=== PATIENT | male | born 1935 | race Caucasian/White ===

== ENCOUNTER 2016-12-23 15:58 | Inpatient (IN) | payer MEDICARE, BC ==
[2016-12-23 17:24] LABS: Hematocrit 37 % (42-52); Hemoglobin 12.6 g/dl (14.0-18.0); Mean Corpuscular HGB Conc 34 g/dl (31-36); Mean Corpuscular Hemoglobin 30 pg (27-31); Mean Corpuscular Volume 89 fL (80-94); Mean Platelet Volume 7 um3 (7.4-10.4); Red Cell Distribution Width 13 % (10.5-15); White Blood Count 8.9 10^3/ul (3.5-10.8)
[2016-12-23] MEDS ORDERED: Iodixanol* (CONTRAST) 320 MG/ML 100 ML SDV IV ONE (17:54)
[2016-12-23 18:05] LABS: Troponin I 0.01 ng/mL (<0.04)
[2016-12-23 18:18] LABS: Albumin 3.3 g/dL (3.2-5.2); BUN/Creatinine Ratio 24.5 (8-20); Calcium 9.3 mg/dL (8.6-10.3); EGFR African American 90.6 (>60); EGFR Non-African American 70.5 (>60); Globulin 3.4 g/dL (2-4); Potassium 5.1 mmol/L (3.5-5.0); Total Bilirubin 0.3 mg/dL (0.2-1.0); Total Protein 6.7 g/dL (6.4-8.9)
--- NOTE | 2016-12-23 19:11 | RAD ---
INDICATION: Amaurosis fugax. COMPARISON: Comparison is made with a prior MRI of the brain from December 18, 2014. TECHNIQUE: Contiguous axial sections of the brain were obtained from the skull base to the vertex without contrast. FINDINGS: The ventricles, cisterns and sulci are enlarged consistent with diffuse atrophy. There are multiple focal areas of decreased density in the subcortical and periventricular white matter suggestive of moderate chronic small vessel ischemic changes. No other focal abnormality or mass effect is seen. There is no evidence for hemorrhage. There is mucosal thickening within the ethmoid and left frontal sinuses. The mastoid air cells appear clear. IMPRESSION: 1. NO EVIDENCE FOR GROSS ACUTE INFARCT, MASS EFFECT OR HEMORRHAGE. 2. ATROPHY AND FINDINGS SUGGESTIVE OF CHRONIC SMALL VESSEL ISCHEMIC CHANGES.
--- NOTE | 2016-12-23 19:40 | RAD ---
INDICATION: Amaurosis fugax. COMPARISON: There are no prior studies available for comparison. TECHNIQUE: A CT angiogram of the head and neck was performed following intravenous injection of 80 ml of Visipaque 320 nonionic contrast. Contiguous axial sections were obtained from the thoracic inlet through the skull vertex. Images were reconstructed in the coronal and sagittal planes and in a 3-D volume rendered format. The distal cervical internal carotid artery diameter is used as the denominator for stenosis measurement. FINDINGS: RIGHT CAROTID: The common carotid artery is widely patent. There is mild to moderate calcific plaque present within the carotid bulb. No hemodynamically significant stenosis is present. The internal carotid artery appears widely patent. LEFT CAROTID: The left common carotid artery is widely patent. There is mild calcific plaque present within the carotid bulb. No hemodynamically significant stenosis is present. The internal carotid artery appears widely patent. VERTEBRALS: The vertebral arteries appear patent without evidence for high-grade stenosis or occlusion. CTA BRAIN: The internal carotid, anterior and middle cerebral arteries appear patent without evidence for high-grade stenosis or occlusion. There is mild to moderate calcific plaque present within the cavernous portion of both internal carotid arteries. The vertebral, basilar and posterior cerebral arteries appear patent without evidence for high-grade stenosis or occlusion. No gross focal perfusion abnormalities are seen. No aneurysm or vascular malformation is seen. NECK: No significant enlarged lymph nodes are seen within the neck. The thyroid, parotid and submandibular glands appear to be within normal limits. The lung apices appear clear. There is mild mucosal thickening within the ethmoid and left frontal sinus. IMPRESSION: 1. NO EVIDENCE FOR CAROTID STENOSIS. 2. NO EVIDENCE FOR LARGE VESSEL INTRACRANIAL THROMBUS. CPT II Codes: 3100F
[2016-12-23 19:41] LABS: Urine Bilirubin Negative (Negative); Urine Glucose Negative (Negative); Urine Nitrite Negative (Negative)
[2016-12-23 21:33] LABS: C Reactive Protein 81.26 mg/L (< 5.00)
[2016-12-23] MEDS ORDERED: Dextrose 50% Syringe 50 ML* 25 GM/50 ML SYRINGE IV PUSH PRN (21:33)
--- NOTE | 2016-12-23 22:07 | ED ---
Fernando Gonzalez Benjamin, scribed for Erich Rodriguez MD on 12/23/16 at 1706 . Neurological HPI - HPI Summary HPI Summary: 81yo male sent by his Medical Supervisor from his office to r/o CVA after reporting left visual symptoms while being examined. Pt reports having diploma on his left eye 3 days ago, and yesterday pt had sudden loss of middle section visual loss across horizontally. His visual loss continued for 1 hour then resolved back to normal. Pt had similar episodes again this morning and at his Ophthalmologists office. Also reports extreme fatigue and lethargy for 3 weeks and intermittent right arm sudden weakness last week. - History of Current Complaint Chief Complaint: EDNeurologicalDeficit Stated Complaint: DOUBLE VISION AND UNABLE TO SEE IN LT EYE Time Seen by Provider: 12/23/16 16:27 Hx Obtained From: Patient Timing: Constant Pain Intensity: 5 Pain Scale Used: 0-10 Numeric Character: Lethargy, Visual Changes - left - Allergy/Home Medications Allergies/Adverse Reactions: Allergies Allergy/AdvReac Type Severity Reaction Status Date / Time Sulfa Antibiotics Allergy Unknown Unknown Verified 02/13/15 06:54 Reaction Details Chlortetracycline Allergy FULL BODY Verified 02/13/15 06:54 [From Aureomycin] RASH Home Medications: Home Medications Aspirin EC Low Dose* [Ecotrin EC Low Dose 81 MG*] 81 mg PO DAILY 12/23/16 [ History Confirmed 12/23/16] Citalopram TAB* [CeleXA TAB*] 30 mg PO DAILY 12/23/16 [History Confirmed ] Metformin ER (NF) 1,000 mg PO BID 12/23/16 [History Confirmed 12/23/16] Simvastatin (NF) [Zocor (NF)] 40 mg PO BEDTIME 12/23/16 [History Confirmed 12/23] SitaGLIPtin (NF) [Januvia (NF)] 100 mg PO DAILY 12/23/16 [History Confirmed ] PMH/Surg Hx/FS Hx/Imm Hx Endocrine/Hematology History: Reports: Hx Diabetes Cardiovascular History: Reports: Hx Hypertension - ON DAILY MEDS Denies: Hx Pacemaker/ICD Comment Only: Other Cardiovascular Problems/Disorders - 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 08/2014 Colon resection [facility] Hx Anesthesia Reactions: No Infectious Disease History: No Infectious Disease History: Denies: Traveled Outside the [place] in Last 30 Days - Social History Alcohol Use: None Alcohol Amount: 1 GLASS Substance Use Type: Reports: None Smoking Status (MU): Former Smoker Type: Cigarettes Amount Used/How Often: 1PPD 20 YRS Have You Smoked in the Last Year: No Review of Systems Constitutional: Negative Positive: Diplopia - left, Other - left visual impairment ENT: Negative Cardiovascular: Negative Respiratory: Negative Gastrointestinal: Negative Genitourinary: Negative Musculoskeletal: Negative Skin: Negative Positive: Weakness - RUE Psychological: Normal All Other Systems Reviewed And Are Negative: Yes Physical Exam Triage Information Reviewed: Yes Vital Signs On Initial Exam: Initial Vitals Temp Pulse Resp BP Pulse Ox 98 F 66 16 136/79 96 12/23/16 16:08 12/23/16 16:08 12/23/16 16:08 12/23/16 16:08 12/23/16 16:08 Vital Signs Reviewed: Yes Appearance: Positive: Well-Appearing, No Pain Distress, Well-Nourished Skin: Positive: Warm, Skin Color Reflects Adequate Perfusion, Dry Head/Face: Positive: Normal Head/Face Inspection, Other - Tender and firm right temporal artery Eyes: Positive: Conjunctiva Clear ENT: Positive: Normal ENT inspection, Hearing grossly normal Neck: Positive: Supple, Nontender Respiratory/Lung Sounds: Positive: Clear to Auscultation, Breath Sounds Present Cardiovascular: Positive: RRR, Other - Decreased left carotid pulse. No bruit. Abdomen Description: Positive: Nontender, Soft Bowel Sounds: Positive: Present Musculoskeletal: Positive: Strength/ROM Intact Neurological: Positive: Sensory/Motor Intact, Alert, Oriented to Person Place, Time Psychiatric: Positive: Affect/Mood Appropriate - Martin Coma Scale Coma Scale Total: 15 Diagnostics - Vital Signs Vital Signs Temp Pulse Resp BP Pulse Ox 12/23/16 16:38 97.7 F 72 16 154/89 99 12/23/16 16:31 73 98 12/23/16 16:08 98 F 66 16 136/79 96 - Laboratory Lab Results: Lab Results 12/23/16 12/23/16 12/23/16 Range/Units 17:08 17:08 17:08 WBC 8.9 (3.5-10.8) 10^3/ul RBC 4.20 (4.0-5.4) 10^6/ul Hgb 12.6 L (14.0-18.0) g/dl Hct 37 L (42-52) % MCV 89 (80-94) fL MCH 30 (27-31) pg MCHC 34 (31-36) g/dl RDW 13 (10.5-15) % Plt Count 387 (150-450) 10^3/ul MPV 7 L (7.4-10.4) um3 Neut % (Auto) 59.3 (38-83) % Lymph % (Auto) 20.7 L (25-47) % [place]owndes % (Auto) 12.2 H (1-9) % Eos % (Auto) 7.0 H (0-6) % Baso % (Auto) 0.8 (0-2) % Absolute Neuts (auto) 5.3 (1.5-7.7) 10^3/ul Absolute Lymphs (auto) 1.8 (1.0-4.8) 10^3/ul Absolute Monos (auto) 1.1 H (0-0.8) 10^3/ul Absolute Eos (auto) 0.6 (0-0.6) 10^3/ul Absolute Basos (auto) 0.1 (0-0.2) 10^3/ul Absolute Nucleated RBC 0 10^3/ul Nucleated RBC % 0 ESR Pending INR (Anticoag Therapy) 0.96 (0.89-1.11) Sodium 136 (133-145) mmol/L Potassium 5.1 H (3.5-5.0) mmol/L Chloride 102 (101-111) mmol/L Carbon Dioxide 29 (22-32) mmol/L Anion Gap 5 (2-11) mmol/L BUN 25 H (6-24) mg/dL Creatinine 1.02 (0.67-1.17) mg/dL Est GFR ( Amer) 90.6 (>60) Est GFR (Non-Af Amer) 70.5 (>60) BUN/Creatinine Ratio 24.5 H (8-20) Glucose 124 H (70-100) mg/dL Lactic Acid (0.5-2.0) mmol/L Calcium 9.3 (8.6-10.3) mg/dL Total Bilirubin 0.30 (0.2-1.0) mg/dL AST 12 L (13-39) U/L ALT 12 (7-52) U/L Alkaline Phosphatase 112 H (34-104) U/L Troponin I 0.01 (<0.04) ng/mL C-Reactive Protein 81.26 H (< 5.00) mg/L Total Protein 6.7 (6.4-8.9) g/dL Albumin 3.3 (3.2-5.2) g/dL Globulin 3.4 (2-4) g/dL Albumin/Globulin Ratio 1.0 (1-3) TSH (0.34-5.60) mcIU/mL Urine Color Urine Appearance Urine pH (5-9) Ur Specific Colbert (1.010-1.030) Urine Protein (Negative) Urine Ketones (Negative) Urine Blood (Negative) Urine Nitrate (Negative) Urine Bilirubin (Negative) Urine Urobilinogen (Negative) Ur Leukocyte Esterase (Negative) Urine Glucose (Negative) 12/23/16 12/23/16 12/23/16 Range/Units 17:08 17:08 19:20 WBC (3.5-10.8) 10^3/ul RBC (4.0-5.4) 10^6/ul Hgb (14.0-18.0) g/dl Hct (42-52) % MCV (80-94) fL MCH (27-31) pg MCHC (31-36) g/dl RDW (10.5-15) % Plt Count (150-450) 10^3/ul MPV (7.4-10.4) um3 Neut % (Auto) (38-83) % Lymph % (Auto) (25-47) % Lowndes % (Auto) (1-9) % Eos % (Auto) (0-6) % Baso % (Auto) (0-2) % Absolute Neuts (auto) (1.5-7.7) 10^3/ul Absolute Lymphs (auto) (1.0-4.8) 10^3/ul Absolute Monos (auto) (0-0.8) 10^3/ul Absolute Eos (auto) (0-0.6) 10^3/ul Absolute Basos (auto) (0-0.2) 10^3/ul Absolute Nucleated RBC 10^3/ul Nucleated RBC % ESR INR (Anticoag Therapy) (0.89-1.11) Sodium (133-145) mmol/L Potassium (3.5-5.0) mmol/L Chloride (101-111) mmol/L Carbon Dioxide (22-32) mmol/L Anion Gap (2-11) mmol/L BUN (6-24) mg/dL Creatinine (0.67-1.17) mg/dL Est GFR ( Amer) (>60) Est GFR (Non-Af Amer) (>60) BUN/Creatinine Ratio (8-20) Glucose (70-100) mg/dL Lactic Acid 1.1 (0.5-2.0) mmol/L Calcium (8.6-10.3) mg/dL Total Bilirubin (0.2-1.0) mg/dL AST (13-39) U/L ALT (7-52) U/L Alkaline Phosphatase (34-104) U/L Troponin I (<0.04) ng/mL C-Reactive Protein (< 5.00) mg/L Total Protein (6.4-8.9) g/dL Albumin (3.2-5.2) g/dL Globulin (2-4) g/dL Albumin/Globulin Ratio (1-3) TSH 0.40 (0.34-5.60) mcIU/mL Urine Color Yellow Urine Appearance Clear Urine pH 6.0 (5-9) Ur Specific Colbert 1.018 (1.010-1.030) Urine Protein Negative (Negative) Urine Ketones Negative (Negative) Urine Blood Negative (Negative) Urine Nitrate Negative (Negative) Urine Bilirubin Negative (Negative) Urine Urobilinogen Negative (Negative) Ur Leukocyte Esterase Negative (Negative) Urine Glucose Negative (Negative) Result Diagrams: 12/23/16 17:08 12/23/16 17:08 Lab Statement: Any lab studies that have been ordered have been reviewed, and results considered in the medical decision making process. - CT Brain CT CT Interpretation: No Acute Changes - IMPRESSION: 1. NO EVIDENCE FOR GROSS ACUTE INFARCT, MASS EFFECT OR HEMORRHAGE. 2. ATROPHY AND FINDINGS SUGGESTIVE OF CHRONIC SMALL VESSEL ISCHEMIC CHANGES. CT Interpretation Completed By: Radiologist CTA Head CT Interpretation: No Acute Changes - IMPRESSION: 1. NO EVIDENCE FOR CAROTID STENOSIS. 2. NO EVIDENCE FOR LARGE VESSEL INTRACRANIAL THROMBUS. CPT II Codes: 3100F CT Interpretation Completed By: Radiologist - EKG 1718. Cardiac Rate: NL - 70bpm EKG Rhythm: Sinus Rhythm ST Segment: Non-Specific - non specific anterior ST changes Ectopy: PVCs Course/Dx - Course Course Of Treatment: Reviewed pts medication and allergy lists. Blood pressure noted. Discussed with Dr. Sampson (Neurology) at 16:45. Discussed with Dr. Welsh (Hospitalist) at 20:09. . Assessment/Plan: Mr. Romero presented from DR. Barber's office with a visula C/O that Dr. Barber did not feel was his eye but rather was concerned for Amaurosis Fugax. He is getting W/U for that at this time and also I have a concern for a possible temporal arteritis and ESR is pending. The hospitalists are consulted for admission for further W/U. - Diagnoses Provider Diagnoses: Visual loss Discharge - Discharge Plan Condition: Stable Disposition: ADMITTED TO [facility] The documentation as recorded by the Fernando middleton Benjamin accurately reflects the service I personally performed and the decisions made by me, Erich Rodriguez MD.
[2016-12-23 22:28] LABS: Erythrocyte Sed Rate 66 mm/Hr (0-40)
[2016-12-23] MEDS ORDERED: Temazepam CAP* 15 MG PO PRN (22:54)
[2016-12-23] MEDS: Atorvastatin* 20 MG TAB PO SCH (23:37)
[2016-12-23] MEDS: Heparin VIAL(*) 5000 UNITS/ML VIAL (FIVE THOUSAND) SUBCUT SCH (23:38)
--- NOTE | 2016-12-24 02:18 | HP ---
CC: Chinyere Alvarenga MD * HISTORY AND PHYSICAL: DATE OF ADMISSION: 12/23/16 CHIEF COMPLAINT: "Can't see through my left eye." HISTORY OF PRESENT ILLNESS: The patient is a 81-year-old gentleman, who said yesterday he had a sudden loss of vision in his left eye. It lasted approximately 45 minutes. He said he also had some double vision associated with this. It happened about 6 p.m. He was sitting in a chair when it happened. It felt like there was a piece of wood covering his eye through the middle. Then today, he has had another recurrence of it, but it was only for a few seconds. He saw his eye doctor today for evaluation who sent him over to the hospital for further evaluation. He denied ever having any slurred speech or facial droop. He may have had some trouble with word finding. His has noticed he has been increasingly fatigued and weak over the last week or so. He may have had some trouble with word finding. His has noticed he has been increasingly fatigued and weak over the last week or so. She also notes that when he was getting chemotherapy recently for his colon cancer, he also had an episode of double vision. She also notes significant depression lately. PAST MEDICAL HISTORY: The patient has a past medical history significant for colon cancer stage III, status post chemo and surgery; coronary artery disease; type 2 diabetes; esophagitis; arthritis. PAST SURGICAL HISTORY: Significant for appendectomy and surgery for bilateral undescended testes and colon resection. CURRENT MEDICATIONS: As follows: 1. Aspirin 81 mg daily. 2. Januvia 100 mg daily. 3. Metformin 1000 mg twice daily. 4. Simvastatin 40 mg at bedtime. 5. Atenolol 50 mg in the morning. 6. Celexa 30 mg daily. ALLERGIES: He has an allergy/adverse reaction to AUREOMYCIN. FAMILY HISTORY: Reviewed, noncontributory. SOCIAL HISTORY: , his is his healthcare proxy. 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 Ex-tobacco, quit at age 52, had a 25- pack-year history, occasional alcohol. REVIEW OF SYSTEMS: A 14-point review of systems was completed with the patient. All pertinent positives and negatives are in the history of present illness, otherwise negative. PHYSICAL EXAMINATION GENERAL: A pleasant gentleman lying in bed, in no acute distress. VITAL SIGNS: Temperature 97.5 degrees, heart rate 83 beats per minute, respiratory rate 18 breaths per minute, pulse ox 97%, blood pressure is 147/60. HEENT: Normocephalic and atraumatic. Pupils are equal, round, and reactive to light. Moist mucous membranes. NECK: Supple. No JVD, bruits, or palpable thyroid or lymphadenopathy. CHEST: Clear to auscultation and percussion bilaterally. CARDIOVASCULAR: S1, S2 appreciated. Regular rate and rhythm. ABDOMINAL EXAM: Positive bowel sounds in all 4 quadrants. Soft, nontender, nondistended. No hepatosplenomegaly. EXTREMITIES: No cyanosis, clubbing, or edema, +2 pulses bilaterally. NEURO: Alert and oriented x3. Moves all extremities. SKIN: No rashes or abnormalities. DIAGNOSTIC STUDIES/LAB DATA: White count 8.9, hemoglobin 12.6, hematocrit 37, platelets 387,000. Sodium 136, potassium 5.1, chloride 102, CO2 29, BUN 25, creatinine 1.02, glucose 124. CRP is 81.26, INR is 0.96. Urinalysis is unremarkable. EKG shows normal sinus rhythm at 70 beats per minute, normal axis, PVC's, flattening of the T, nonspecific ST-T wave changes. His brain CT was interpreted by Radiology as no evidence of gross acute infarct , mass effect or hemorrhage, atrophy vessels, chronic small vessel ischemic changes. Head CTA shows no evidence for carotid stenosis, no evidence of large vessel intracranial thrombus. ASSESSMENT AND PLAN: 1. Transient ischemic attack, amaurosis fugax. Unclear if this is actually what occurred. We will monitor the patient on telemetry, get an MRI in the a.m. He apparently had it while doing chemo as well. I will continue with aspirin for now. We may add Plavix. Neurology consult in the a.m. Neurological checks q.4 hours p.r.n. 2. Diabetes mellitus. Hold oral hypoglycemics, fingersticks with sliding scale insulin. 3. Hypertension, borderline controlled. Continue current regimen and adjust medications accordingly. 4. Depression. very worried about this. We will continue citalopram, consider increasing the medication or adjustment of the same. 5. DVT prophylaxis. Heparin subcu. 6. FEN. Consistent carb diet. 7. The patient is a full code. TIME SPENT: Over 75 minutes was spent on this H and P, more than 40 minutes were spent in direct [id number] contact with the patient in evaluation, physical exam, counseling and coordination of care. [id number]/[facility] #: [id number] ALEX
[2016-12-24 05:21] LABS: HDL Cholesterol 30.6 mg/dL
[2016-12-24] MEDS: Heparin VIAL(*) 5000 UNITS/ML VIAL (FIVE THOUSAND) SUBCUT SCH (05:55)
[2016-12-24] MEDS ORDERED: Citalopram TAB* 10 MG PO SCH (09:00)
[2016-12-24] MEDS ORDERED: Aspirin EC Low Dose* 81 MG TAB.EC PO SCH (09:00)
[2016-12-24] MEDS: Insulin LISPRO* 1 UNITS UNIT SUBCUT SCH ×4 (09:27→21:14)
[2016-12-24] MEDS: Clopidogrel TAB* 75 MG PO SCH (09:28)
[2016-12-24] MEDS: Atenolol TAB* 50 MG PO SCH (09:29)
[2016-12-24] MEDS ORDERED: Sodium Polystyrene ORAL.SOL* 15 GM/60 ML BTL PO ONE (11:29)
--- NOTE | 2016-12-24 11:53 | RAD ---
HISTORY: Left eye vision loss, colon cancer COMPARISONS: Head CT dated December 23, 2016, MRI dated December 18, 2014 TECHNIQUE: The following sequences were obtained of the head: Sagittal T1-weighted images, axial T2-weighted images, axial FLAIR images, axial susceptibility weighted images, axial T1-weighted images. Additionally, axial diffusion-weighted images were obtained with calculated apparent diffusion coefficients. FINDINGS: HEMORRHAGE/INFARCT: There is no hemorrhage or acute infarct. MASSES/SHIFT: There is no mass or shift. EXTRA-AXIAL SPACES/MENINGES: There are no extra-axial fluid collections. SULCI AND VENTRICLES: The sulci and ventricles are normal in size and position for the patient's stated age. CEREBRUM: There is multifocal elevated T2/FLAIR signal with small chronic lacunar infarcts. BRAINSTEM: There are no focal parenchymal abnormalities. CEREBELLUM: There are no focal parenchymal abnormalities. The cerebellar tonsils are normal in size and position. SELLA: The sella is normal. PINEAL: The pineal region is clear. CP ANGLE/TEMPORAL BONES: The labyrinthine structures are grossly normal. VESSELS: Normal flow-voids are noted within the visualized vertebral vasculature. DIFFUSION ABNORMALITIES: There are no diffusion abnormalities. PARANASAL SINUSES/MASTOIDS: There is mucosal thickening of ethmoid air cells and frontal sinuses. ORBITS: The orbits are unremarkable. BONES AND SOFT TISSUE: No bone or soft tissue abnormalities are noted. OTHER: None IMPRESSION: 1. DIFFUSE INVOLUTIONAL CHANGE WITH CHRONIC SMALL VESSEL ISCHEMIC CHANGES. 2. NO RESTRICTED DIFFUSION TO SUGGEST ACUTE INFARCT
--- NOTE | 2016-12-24 12:51 | PN ---
Subjective Date of Service: 12/24/16 Interval History: pt has had trouble with intermittent double vision x 1 year. C/o athralgias on his neck and shoulder, but none in LE's. Headaches that would originate from his b/l TMJ adn radiate to b/l temples with point tenderness over the hinduism area b/l. L eye visual disturbance occurred 2 days ago and yesterday. Lasted approx 1 hr Objective Active Medications: Atenolol (Tenormin Tab*) 50 mg PO QAM [facility] Last Admin: 12/24/16 09:29 Dose: 50 mg Atorvastatin Calcium (Lipitor*) 20 mg PO BEDTIME [facility] Last Admin: 12/23/16 23:37 Dose: 20 mg Citalopram Hydrobromide (Celexa Tab*) 20 mg PO DAILY [facility] Clopidogrel Bisulfate (Plavix Tab*) 75 mg PO DAILY [facility] Last Admin: 12/24/16 09:28 Dose: 75 mg Dextrose (D50w Syringe 50 Ml*) 12.5 gm IV PUSH .FOR FS < 60 - SS PRN PRN Reason: FS < 60 Heparin Sodium (Porcine) (Heparin Vial(*)) 5,000 units SUBCUT Q8HR [facility] Last Admin: 12/24/16 05:55 Dose: 5,000 units Insulin Human Lispro (Humalog*) 0 units SUBCUT ACHS [facility] PRN Reason: Protocol Last Admin: 12/24/16 09:27 Dose: 1 units Temazepam (Restoril Cap*) 15 mg PO BEDTIME PRN PRN Reason: INSOMNIA Vital Signs 12/23/16 12/23/16 12/23/16 21:47 21:49 22:55 Temperature 97.5 F Pulse Rate 83 83 Respiratory 18 Rate Blood Pressure 155/96 147/60 (mmHg) O2 Sat by Pulse 95 97 Oximetry 12/23/16 12/23/16 12/24/16 22:58 23:04 03:38 Temperature 97.5 F 98.9 F Pulse Rate 84 83 77 Respiratory 16 18 16 Rate Blood Pressure 155/96 147/60 154/75 (mmHg) O2 Sat by Pulse 97 95 Oximetry 12/24/16 07:33 Temperature 98.4 F Pulse Rate 70 Respiratory 16 Rate Blood Pressure 131/57 (mmHg) O2 Sat by Pulse 95 Oximetry Oxygen Devices in Use Now: None Appearance: 81 yo M in nAD, AAOx3 Eyes: No Scleral Icterus, PERRLA Ears/Nose/Mouth/Throat: NL Teeth, Lips, Gums, Mucous Membranes Moist Neck: NL Appearance and Movements; NL JVP, Trachea Midline Respiratory: Symmetrical Chest Expansion and Respiratory Effort, Clear to Auscultation Cardiovascular: NL Sounds; No Murmurs; No JVD, RRR Abdominal: NL Sounds; No Tenderness; No Distention Lymphatic: No Cervical Adenopathy Extremities: No Edema, No Clubbing, Cyanosis Skin: No Rash or Ulcers, No Nodules or Sclerosis Neurological: Alert and Oriented x 3, NL Muscle Strength and Tone, - - tender to palpation of b/l temoral arteries Result Diagrams: 12/23/16 17:08 12/23/16 17:08 Additional Lab and Data: Lab Results 12/23/16 12/23/16 12/23/16 Range/Units 17:08 17:08 17:08 WBC 8.9 (3.5-10.8) 10^3/ul RBC 4.20 (4.0-5.4) 10^6/ul Hgb 12.6 L (14.0-18.0) g/dl Hct 37 L (42-52) % MCV 89 (80-94) fL MCH 30 (27-31) pg MCHC 34 (31-36) g/dl RDW 13 (10.5-15) % Plt Count 387 (150-450) 10^3/ul MPV 7 L (7.4-10.4) um3 Neut % (Auto) 59.3 (38-83) % Lymph % (Auto) 20.7 L (25-47) % [place] % (Auto) 12.2 H (1-9) % Eos % (Auto) 7.0 H (0-6) % Baso % (Auto) 0.8 (0-2) % Absolute Neuts (auto) 5.3 (1.5-7.7) 10^3/ul Absolute Lymphs (auto) 1.8 (1.0-4.8) 10^3/ul Absolute Monos (auto) 1.1 H (0-0.8) 10^3/ul Absolute Eos (auto) 0.6 (0-0.6) 10^3/ul Absolute Basos (auto) 0.1 (0-0.2) 10^3/ul Absolute Nucleated RBC 0 10^3/ul Nucleated RBC % 0 ESR Pending INR (Anticoag Therapy) 0.96 (0.89-1.11) Sodium 136 (133-145) mmol/L Potassium 5.1 H (3.5-5.0) mmol/L Chloride 102 (101-111) mmol/L Carbon Dioxide 29 (22-32) mmol/L Anion Gap 5 (2-11) mmol/L BUN 25 H (6-24) mg/dL Creatinine 1.02 (0.67-1.17) mg/dL Est GFR ( Amer) 90.6 (>60) Est GFR (Non-Af Amer) 70.5 (>60) BUN/Creatinine Ratio 24.5 H (8-20) Glucose 124 H (70-100) mg/dL Lactic Acid (0.5-2.0) mmol/L Calcium 9.3 (8.6-10.3) mg/dL Total Bilirubin 0.30 (0.2-1.0) mg/dL AST 12 L (13-39) U/L ALT 12 (7-52) U/L Alkaline Phosphatase 112 H (34-104) U/L Troponin I 0.01 (<0.04) ng/mL C-Reactive Protein 81.26 H (< 5.00) mg/L Total Protein 6.7 (6.4-8.9) g/dL Albumin 3.3 (3.2-5.2) g/dL Globulin 3.4 (2-4) g/dL Albumin/Globulin Ratio 1.0 (1-3) TSH (0.34-5.60) mcIU/mL Urine Color Urine Appearance Urine pH (5-9) Ur Specific [place] (1.010-1.030) Urine Protein (Negative) Urine Ketones (Negative) Urine Blood (Negative) Urine Nitrate (Negative) Urine Bilirubin (Negative) Urine Urobilinogen (Negative) Ur Leukocyte Esterase (Negative) Urine Glucose (Negative) 12/23/16 12/23/16 12/23/16 Range/Units 17:08 17:08 19:20 WBC (3.5-10.8) 10^3/ul RBC (4.0-5.4) 10^6/ul Hgb (14.0-18.0) g/dl Hct (42-52) % MCV (80-94) fL MCH (27-31) pg MCHC (31-36) g/dl RDW (10.5-15) % Plt Count (150-450) 10^3/ul MPV (7.4-10.4) um3 Neut % (Auto) (38-83) % Lymph % (Auto) (25-47) % [place] % (Auto) (1-9) % Eos % (Auto) (0-6) % Baso % (Auto) (0-2) % Absolute Neuts (auto) (1.5-7.7) 10^3/ul Absolute Lymphs (auto) (1.0-4.8) 10^3/ul Absolute Monos (auto) (0-0.8) 10^3/ul Absolute Eos (auto) (0-0.6) 10^3/ul Absolute Basos (auto) (0-0.2) 10^3/ul Absolute Nucleated RBC 10^3/ul Nucleated RBC % ESR INR (Anticoag Therapy) (0.89-1.11) Sodium (133-145) mmol/L Potassium (3.5-5.0) mmol/L Chloride (101-111) mmol/L Carbon Dioxide (22-32) mmol/L Anion Gap (2-11) mmol/L BUN (6-24) mg/dL Creatinine (0.67-1.17) mg/dL Est GFR ( Amer) (>60) Est GFR (Non-Af Amer) (>60) BUN/Creatinine Ratio (8-20) Glucose (70-100) mg/dL Lactic Acid 1.1 (0.5-2.0) mmol/L Calcium (8.6-10.3) mg/dL Total Bilirubin (0.2-1.0) mg/dL AST (13-39) U/L ALT (7-52) U/L Alkaline Phosphatase (34-104) U/L Troponin I (<0.04) ng/mL C-Reactive Protein (< 5.00) mg/L Total Protein (6.4-8.9) g/dL Albumin (3.2-5.2) g/dL Globulin (2-4) g/dL Albumin/Globulin Ratio (1-3) TSH 0.40 (0.34-5.60) mcIU/mL Urine Color Yellow Urine Appearance Clear Urine pH 6.0 (5-9) Ur Specific [place] 1.018 (1.010-1.030) Urine Protein Negative (Negative) Urine Ketones Negative (Negative) Urine Blood Negative (Negative) Urine Nitrate Negative (Negative) Urine Bilirubin Negative (Negative) Urine Urobilinogen Negative (Negative) Ur Leukocyte Esterase Negative (Negative) Urine Glucose Negative (Negative) Assess/Plan/Problems-Billing Assessment: 81 yo M with h/o colon ca in 2015(s/p resection and chemo), DM2, presents with c/o headaches and transient partial left eye vision loss. - Patient Problems (1) Amaurosis fugax of left eye Comment: Neurology consulted ESR 66 in conjunction with temporal headaches and TMJ problems raises the possibily of temporal arteritis. MRI brain unremarkable will ask gavin for temporal artery bxd on L side. start solu Medrol.Awaiting neuro consult (2) Hx of type 2 diabetes mellitus Comment: cont ISS metformin held (3) DVT prophylaxis Comment: heparin held prior to temporal artery bx Status and Disposition: inpatient
[2016-12-24] MEDS ORDERED: methylPREDNISolone SOD SUCC* 1000 MG ML VIAL IVPB SCH (14:00)
[2016-12-24] MEDS ORDERED: Pantoprazole TAB (NF) 40 MG TAB PO ONE (14:00)
[2016-12-24] MEDS: methylPREDNISolone SOD SUCC* 1,000 MG in NS 0.9% 250 ML* 250 ML IVPB SCH (15:06)
--- NOTE | 2016-12-24 16:01 | ECHO ---
Patient: PATRICIA MAI [facility] Rec#: [id number] : 1935 Date: 12/24/2016 Age: 81y Height: 172.72 cm / 68.0 in Weight: 71.67 kg / 158.0 lbs Sex: M BSA: 1.85 Room#: 432 Admit Date#: 12/23/2016 Type: Inpatient Referring: Kristen Riley MD Reading: Tabby Gresham MD Speech Assistant: Pat Quinones,SAMYCS,RDMS CC: Chinyere Alvarenga MD Transthoracic Echocardiogram Indication: TIA BP: 131/57 HR: 74 Rhythm: NSR with PVCs Findings History: CAD, DM, colon cancer, chemotherapy, former smoker. Technical Comments: The study quality is good. Completed 1450 Left Ventricle: The left ventricular chamber size is normal. Mild concentric left ventricular hypertrophy is observed. There is normal left ventricular systolic function. The estimated ejection fraction is 60-65%. Abnormal left ventricular diastolic filling is observed, consistent with impaired relaxation. Left Atrium: The left atrium is slightly dilated. Right Ventricle: The right ventricular chamber size and systolic function are within normal limits. Right Atrium: The right atrial cavity size is normal. The bubble study is negative. A patent foramen ovale is not demonstrated with color Doppler and agitated contrast. Aortic Valve: The aortic valve is trileaflet. The aortic valve leaflets are mildly thickened. There is mild aortic regurgitation. There is no evidence of aortic stenosis. Mitral Valve: The mitral valve leaflets are mildly thickened. There is mild mitral regurgitation. There is no evidence of mitral stenosis. Tricuspid Valve: The tricuspid valve leaflets are normal. There is trace tricuspid regurgitation. No pulmonary hypertension is noted. Pulmonic Valve: The pulmonic valve appears normal. There is mild pulmonic regurgitation. Pericardium: There is no significant pericardial effusion. Aorta: The aortic root appears normal. There is no dilatation of the aortic arch. Pulmonary Artery: The main pulmonary artery appears normal. Venous: The inferior vena cava appears normal in size. There is a greater than 50% respiratory change in the inferior vena cava dimension. Contrast: Intravenous agitated saline contrast was used to assess intracardiac shunting. Images 1 and 2 Conclusions Mild concentric left ventricular hypertrophy is observed. There is normal left ventricular systolic function. The estimated ejection fraction is 60-65%. Abnormal left ventricular diastolic filling is observed, consistent with impaired relaxation. The right ventricular chamber size and systolic function are within normal limits. No patent foramen ovale/intracardiac shunting demonstrated with color Doppler and agitated contrast. There is mild aortic regurgitation. There is mild mitral regurgitation. There is trace tricuspid regurgitation. No pulmonary hypertension is noted. Compared with prior echo of 11/29/10 ventricular function is stable, AI is stable, MR has increaed from trace, TR is stable. Measurements Name Value Normal Range RVIDd (AP) 2D 2.1 cm (0.9 - 2.6) RVDdMajor (2D) 3.2 cm (2.2 - 4.4) RAd ISD 4CH 5 cm (3.4 - 4.9) RA (A4C)W 3.5 cm (2.9 - 4.6) IVSd (2D) 1.3 cm (0.6 - 1) LVPWd (2D) 1.3 cm (0.6 - 1) LVIDd (2D) 4.5 cm (3.6 - 5.4) LVIDs (2D) 2.9 cm - LV FS (2D) 35 % (25 - 45) Aortic Annulus 2 cm (1.4 - 2.6) Ao root diameter (2D) 2.7 cm (2.1 - 3.5) Ascending Ao 2.7 cm (2.1 - 3.4) Aortic arch 2.7 cm (1.8 - 3.4) LA dimension (AP) 2D 4 cm (2.3 - 3.8) LAd ISD 4CH 5.1 cm (2.9 - 5.3) LA ISD 4CH W 4 cm (2.5 - 4.5) Name Value Normal Range LA ESV SP 4CH (A/L) 42.82 ml - LA ESV SP 2CH (A/L) 24.47 ml - LA ESV BP (A/L) 38.39 ml - LA ESV BP (A/L) index 21 ml/m2 - LA ESV SP 4CH (MOD) 40.82 ml - LA ESV SP 2CH (MOD) 23.18 ml - Name Value Normal Range MV E-wave Vmax 0.7 m/sec - MV deceleration time 180 msec - MV A-wave Vmax 0.9 m/sec - MV E:A ratio 0.8 ratio - LV septal e' Vmax 0.05 m/sec - LV lateral e' Vmax 0.07 m/sec - LV E:e' septal ratio 14 ratio - LV E:e' lateral ratio 10 ratio - Name Value Normal Range AV Vmax 1.4 m/sec - AV VTI 28 cm - AV peak gradient 8 mmHg - AV mean gradient 4.2 mmHg - LVOT Vmax 0.9 m/sec - LVOT VTI 19 cm - LVOT peak gradient 3.2 mmHg - LVOT mean gradient 1.9 mmHg - RICARDO Vmax 0.4 m/sec - Name Value Normal Range TR Vmax 2.2 m/sec - TR peak gradient 19 mmHg - RAP 3 mmHg - RVSP 22 mmHg - IVC diameter 2.1 cm - Name Value Normal Range PV Vmax 0.8 m/sec - PV peak gradient 2.6 mmHg -
[2016-12-24] MEDS: Atorvastatin* 20 MG TAB PO SCH (21:16)
--- NOTE | 2016-12-25 00:22 | CONS ---
CC: Dr. Alvarenga * NEUROLOGY CONSULTATION REPORT: DATE OF CONSULTATION: 12/24/16 LOCATION: The patient is an inpatient. REQUESTING PHYSICIANS: Ricardo Rodriguez MD and Dusty Rowe MD. REASON FOR CONSULT: Amaurosis fugax. HISTORY OF PRESENT ILLNESS: Mr. Romero is a 81-year-old man with a history of colon cancer, treated with chemotherapy in 2014 as well as depression and diabetes, who presented to the emergency department yesterday after being evaluated in his eye doctor's office for vision loss. The patient reports that the day prior to yesterday he had developed a horizontal stripe of vision loss across his left eye only. He tested his eyes independently and could see fine with the right eye but not the left. He was able to see above and below this horizontal strip. The patient is a somewhat difficult informant and it is difficult to know how long this lasted, but it did resolve. Yesterday, he had what he called purple splotches in his vision in the left eye again and that is when he presented to Dr. Barber's office and saw Dr. Torres. It was felt that the eye itself looked fine but there was concern for amaurosis fugax, so he was sent to the emergency department for further workup. In addition to the vision loss that the patient experienced, which prompted his presentation to the emergency room, he describes re-emergence of diplopia which had been a problem for him in the past. Apparently when he was receiving chemotherapy he developed diplopia and it was thought to be secondary to the chemotherapy, which was stopped and subsequently changed to a different agent. His diplopia was corrected with prism glasses but recently has re-emerged. As he is sitting in his hospital bed, he turns his head to the right and looks out to the left at a red strap that is hanging on the wall and indicates that the images appear to be approximately 6 inches apart and then when he turns his head further, they further separate to approximately a foot apart. In the setting of all of this, the patient also endorses shoulder girdle pain, which again is difficult to discern the exact time-line but has been going on at least for a few weeks. He gestures across his chest and into his shoulders and up his neck when he describes this pain which he calls arthritis. He has also had progressive fatigue and his was concerned that his depression was worsening and they had an appointment to discuss this with Dr. Alvarenga yesterday , but then he ended up in the emergency department instead. He also endorses pain with chewing and states that his jaw muscles feel tight. Furthermore, he has had throbbing headaches and has been taking p.r.n. ibuprofen for these. He has actually also noticed that the temporal artery on his right side has been more prominent and is somewhat tender to touch. With all of these constellation of symptoms, Dr. 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 PAST MEDICAL HISTORY: 1. Stage III colon cancer, status post chemotherapy which completed in May 2015 and he has been in remission with regular followup with Dr. Garzon. 2. Coronary artery disease. 3. Type 2 diabetes, not insulin dependent. 4. Esophagitis. 5. Hyperlipidemia. 6. Depression. PAST SURGICAL HISTORY: Appendectomy and surgery for bilateral undescended testes and colon resection. CURRENT MEDICATIONS: 1. Aspirin 81 mg daily. 2. Januvia 100 mg daily. 3. Metformin 1000 mg twice daily. 4. Simvastatin 40 mg at bedtime. 5. Atenolol 50 mg q.a.m. 6. Celexa 20 mg daily. ALLERGIES: SULFA ANTIBIOTICS and CHLORTETRACYCLINE, which causes a full body rash. FAMILY HISTORY: Noncontributory at this time. 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 He is . He quit smoking nearly 30 years ago. He occasionally uses alcohol. REVIEW OF SYSTEMS: As per HPI, otherwise negative. PHYSICAL EXAMINATION: Vital Signs: Temperature 98, blood pressure 121/62, heart rate 77, oxygen saturation 95% on room air. On general examination, he is a pleasant elderly gentleman in no acute distress. His heart is in regular rate and rhythm with no murmurs, rubs or gallops. Lungs are clear to auscultation bilaterally. Carotids reveal no bruits. The temporal arteries are not significantly tender to palpation, but he indicates slight tenderness on the right and the temporal artery on the right side is particularly prominent and feels firm, though there is a pulse palpated bilaterally. On neurologic exam, he is fully awake, alert and oriented. His speech is fluent without dysarthria or aphasia. Pupils are equal, round, and reactive from 3 to 2 mm bilaterally. Visions are full without nystagmus and he does not endorse any diplopia. Rosenthal are full to confrontation with no extinction to double simultaneous stimulation. Facial sensation and musculature is full and symmetric. Hearing is intact to finger rub. Palate elevates symmetrically and the tongue is midline. On motor examination, he has got normal bulk and tone in the upper and lower extremities. Strength is full proximally and distally in the upper and lower extremities. Sensation is intact to pinprick in the upper and lower extremities. Reflexes are 2+ in the upper extremities and at the knees and absent ankle jerks. Toes are difficult to interpret secondary to him being ticklish. There is no ataxia on [id number] testing. LABORATORY DATA/DIAGNOSTIC STUDIES: CBC showed hematocrit of 37 and hemoglobin of 12.6. The differential shows lymphocyte percentage slightly low at 20.7, monocyte percent is slightly high at 12.2% and eosinophils slightly high at 7% with absolute monocytes slightly high at 1.1. Sedimentation rate is 66. Chemistry panel is notable for potassium of 5.1, BUN of 25, BUN to creatinine ratio 24.5, nonfasting glucose of 124, AST of 12 which is slightly low, alkaline phosphatase of 112 which is slightly high. CRP is elevated at 81.26. TSH is normal at 0.4. Cholesterol studies showed triglycerides of 104, total cholesterol 112, LDL 61, HDL of 30.6. Hemoglobin A1c is elevated at 7.7. Urinalysis was negative. CT angiogram of the head and neck was obtained and personally reviewed and showed some mild calcifications at the carotid bifurcations on the right greater than left side as well as some calcification in the cavernous portions of the internal carotid arteries bilaterally, but no significant occlusions or stenosis. Brain MRI was obtained and personally reviewed and showed evidence of small vessel ischemic changes but no acute infarct. Transthoracic echocardiogram showed mild concentric left ventricular hypertrophy , EF of 60% to 65% and no PFO. IMPRESSION: Logan Romero is a 81-year-old man, who presented to the emergency department with transient vision loss in the setting of a few weeks at least of other symptoms including headache, jaw claudication, diplopia, and shoulder girdle pain. His lab workup has been notable for elevated inflammatory markers. He has prominent temporal artery on the right greater than left side with some tenderness. Clinically, we are concerned for giant cell arteritis and polymyalgia rheumatica and he has been started on methylprednisolone 1000 mg IV daily for the next 3 days with a plan to transition him to high dose of steroids of approximately 1 mg/kg. Dr. Riley has contacted Dr. Ervin requesting temporal artery biopsy and we are going to ask for bilateral biopsies because the artery on the right feels more firm but the vision loss is on the left, to increase our yield. 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 If he is feeling better tomorrow in terms of his shoulder girdle pain and tolerating the steroids well in terms of his glucose control, then I talked with the about the possibility of him being able to be discharged with a plan for the third dose of Solu-Medrol to be given in the infusion center. Given his diabetes, going forward we may need to involve Dr. Branch for consideration of steroid-sparing agent but this would be as an outpatient. Thank you for this consultation. [id number]/[facility] #: [id number] ALEX
[2016-12-25] MEDS ORDERED: Pantoprazole TAB (NF) 40 MG TAB PO SCH (06:00)
[2016-12-25] MEDS ORDERED: NS 0.9% 250 ML* 500 ML ONE (08:12)
[2016-12-25] MEDS: Clopidogrel TAB* 75 MG PO SCH (08:18)
[2016-12-25] MEDS: Atenolol TAB* 50 MG PO SCH (08:18)
[2016-12-25] MEDS: Insulin LISPRO* 1 UNITS UNIT SUBCUT SCH ×3 (08:18→17:38)
[2016-12-25] MEDS: methylPREDNISolone SOD SUCC* 1,000 MG in NS 0.9% 250 ML* 250 ML IVPB SCH (08:53)
[2016-12-25] MEDS ORDERED: Citalopram TAB* 20 MG PO SCH (09:00)
[2016-12-25] MEDS ORDERED: Lidocaine 1% INJ* 10 MG/ML 30 ML SDV ONE (11:27)
[2016-12-25] MEDS ORDERED: Bupivacaine 0.5% W/EPI SDV* 30 ML VIAL ONE (11:27)
[2016-12-25] MEDS ORDERED: Dextrose 50% Syringe 50 ML* 25 GM/50 ML SYRINGE IV PUSH PRN (13:25)
[2016-12-25] MEDS ORDERED: Insulin LISPRO* 1 UNITS UNIT SUBCUT ONE ×3 (13:25→15:12)
[2016-12-25] MEDS ORDERED: Insulin GLARGINE(*) 1 UNITS UNIT SUBCUT SCH ×2 (14:00→16:00)
[2016-12-25] MEDS ORDERED: oxyCODONE/Acetamin 5/325 MG* TAB PO PRN (15:05)
[2016-12-25 15:48] VITALS: BP 156/73
[2016-12-25] MEDS ORDERED: metFORMIN* 1,000 MG TAB PO SCH (21:00)
--- NOTE | 2016-12-26 01:48 | PN ---
NEUROLOGY FOLLOWUP NOTE: DATE OF FOLLOWUP: 12/25/16 - ROOM #432 HISTORY: The patient underwent bilateral temporal artery biopsies today. He tolerated it well though says that the Novocaine was very painful. He indicates that he has almost no pain today and shows me how he can move his neck and raise his arms without significant discomfort. When chewing, he still notices some pain and cramping in his jaw. He continues to report diplopia as well. He had a high blood sugar this afternoon at 4:14 measured around 1319. Separately, his reports that she has seen some cognitive changes in him and was not sure if it was the depression or something else going on. She wonders if this is related to this temporal arteritis of if further testing is necessary. MEDICATIONS: 1. Lipitor 20 mg at bedtime. 2. Atenolol 50 mg in the morning. 3. Celexa 20 mg daily. 4. Plavix 75 mg daily. 5. Lantus 10 units subcu daily. 6. Metformin 1000 mg b.i.d. 7. Methylprednisolone 1000 mg daily. He has received 2 doses at this point. 8. Percocet 1 tablet q.6 p.r.n. pain. 9. Protonix 40 mg daily. 10. Temazepam 50 mg at bedtime p.r.n. insomnia. PHYSICAL EXAMINATION: Vital Signs: Temperature 98.4, blood pressure 156/73, heart rate 73, oxygen saturation 97% on room air. The patient was not formally reexamined today. He is sitting just ready to go in the chair next to his bed. He has Steri-Strips over his temporal arteries bilaterally and is wearing a hat. He seems to have some mild word-finding difficulty in conversation. In addition, he several times repeated himself about the pain that the Novocaine caused when administered during the procedure today. IMPRESSION: Logan Romero is a 81-year-old man who presented with amaurosis fugax in the setting of shoulder griddle pain, jaw claudication, headache, and elevated inflammatory markers with concern for temporal arteries. He underwent temporal artery biopsy bilateral today and the specimen pathology is pending. He is said to have an infusion of 1000 mg of methylprednisolone tomorrow afternoon in the infusion center and is going to be discharged this afternoon. Subsequent to that, he is going to be on a prednisone taper. He is going to require close monitoring of his blood glucose as an outpatient. In addition, I will see him in followup as well, especially given these cognitive changes that his is concerned about. At this point, I am not sure if it is related to his inflammatory process or if there is an underlying dementia that could be manifesting here. I will have my office call them with an appointment. [id number]/[facility] #: [id number] ALEX
--- NOTE | 2016-12-26 03:18 | OP ---
CC: Dr. Deysi Sampson * DATE OF OPERATION: 12/25/16 - ROOM #432 DATE OF : 39 SURGEON: Donn Figueroa MD PAVING BED MAKER: None. ANESTHESIOLOGIST: None. PRE-OP DIAGNOSIS: Headache and loss of vision in left eye. POST-OP DIAGNOSIS: Headache and loss of vision in left eye. OPERATIVE PROCEDURE: Bilateral temporal artery biopsies. DESCRIPTION OF PROCEDURE: The patient was supine on the operative table. The temporal region both left and right were clipped and prepped with antiseptic, draped in a sterile fashion. First, the left was addressed. Local anesthetic was administered and approximately 3-cm incision was created. The temporal artery was identified. Approximately a 4 cm section was dissected free. The ends were clipped and segments removed and sent for pathologic evaluation. Hemostasis was good, closure was accomplished in layers using 4-0 Vicryl followed by Steri-Strips. Attention was then turned to the right side where identical anesthetic and incision was created. In this case upon clipping the proximal artery, the clip on the artery seemed to cut through the artery, and there was bleeding from the proximal artery. This was suture ligated using 4-0 Vicryl creating excellent hemostasis. The arterial segment was then sent in formalin for pathologic evaluation and closure accomplished in layers using 4-0 Vicryl followed by Steri-Strips. He tolerated the procedure well and was brought to the recovery room in good condition. There are no complications. No drains. Pathologic specimens are left and right temporal artery biopsies. Sponge and instrument counts correct. Estimated blood loss is less than 20 mL. [id number]/[facility] #: [id number] [facility]WORK[facility]vonne
--- NOTE | 2016-12-26 03:43 | DS ---
CC: Dr. Branch, Rheumatology; Dr. Sampson; Dr. Alvarenga * DISCHARGE SUMMARY: DATE OF ADMISSION: 12/23/16 DATE OF DISCHARGE: 12/25/16 PRIMARY CARE PROVIDER: Dr. Alvarenga. 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 SECOND DIAGNOSES: 1. History of colon cancer stage III status post chemo and surgery in 2014 and 2015. 2. History of coronary artery disease. 3. Diabetes type 2. 4. History of arthritis. MEDICATIONS ON DISCHARGE: Include: 1. Aspirin 81 mg daily. 2. Atenolol 50 mg daily. 3. Celexa 20 mg daily. 4. Metformin 1000 mg b.i.d. 5. Zocor 40 mg at bedtime. 6. Januvia 100 mg daily. 7. Prednisone 40 mg daily, to start on 12/27/16. The patient is going to be seen at [facility] at 1 a.m. to have his third dose of intravenous Solu-Medrol in 1000 mg total on 12/26. LABORATORY DATA AND STUDIES PERFORMED DURING THE HOSPITAL STAY: Included: The patient's ESR was 66. The patient's last glucose check was 273. His cholesterol profile showed triglycerides of 104, cholesterol total of 112, LDL of 61, and HDL of 30.6. His TSH was 0.4. C-reactive protein was 81.2. Urinalysis was unremarkable. Brain MRI obtained on 12/24/2016, impression: "Diffuse involutional change with chronic small vessel ischemic changes. No restrictive diffusions to suggest acute infarct." Transthoracic echocardiogram with bubble study obtained on 12/24/16 showed EF of 60% to 65% with abnormal left ventricular diastolic filling observed consistent with empiric relaxation with mild LVH. There was no PF reported. There was mild aortic regurgitation, mitral regurgitation, and tricuspid regurgitation, no pulmonary hypertension. CT angiogram of the head and neck obtained on 12/24/16, impression: "No evidence for carotid stenosis. No evidence for large vessel intracranial thrombosis." The patient was seen in consultation by Dr. Sampson from Neurology. PROCEDURES PERFORMED DURING THE HOSPITALIZATION: Included Dr. Figueroa performed bilateral temporal artery biopsy on 12/25/16. Pathology is still pending. HOSPITALIZATION COURSE: Logan Romero is a 81-year-old male with history of colon cancer who has been having problems with diplopia off and on for the past couple of years and who presented to the hospital with 2 episodes of what he described was most likely amaurosis fugax. He stated that he had partial loss of vision in the left eye two days in a row, which lasted approximately an hour. For further details of the patient's presentation, please see consultation of Dr. Sampson as well as history and physical of Dr. Rowe. Shortly, the patient was seen by myself during the hospital stay. He was neurologically intact. He continued to complain of bilateral shoulder and joint pains of bilateral extremities. He stated that the pain radiates to his jaw area and his TMJ is painful when he chews. He also stated that recently, his pain had been radiating from his jaws to bilateral temples and he noted a tenderness on his temporal region on palpation. That in conjunction with elevation of ESR and CRP was convincing for a diagnosis of temporal arteritis. Dr. Sampson was consulted on the patient's case and felt that that is also likely. Dr. Figueroa performed bilateral temporal artery biopsy on 12/25/16. The patient was started on pulse Solu-Medrol infusion on 12/24/16. After his second dose of Solu-Medrol, his requested for him to be discharged home and to follow up with outpatient infusion at the infusion center. Please also note that during the patient's hospital stay due to the CT angiogram performed on admission, his metformin was held and was restarted at discharge. Also, his Januvia was held. The patient's sugars became uncontrolled on the day of discharge, but he received 10 unit dose of insulin Lantus prior to discharge. He requires only one more infusion of Solu-Medrol before he goes down to a dose of 40 mg of prednisone daily. I did discuss with the patient that it is possible that his sugars will be uncontrolled even on the prednisone and he may need to be added on the new medication. At this point, no insulin treatment was recommended and the patient is to follow up with his primary care provider in the near future. He has an appointment scheduled with Dr. Alvarenga on at 11:30 a.m. I also contacted Dr. Branch's office and requested for Dr. Branch's office to schedule to an appointment with the patient within the next couple of weeks if possible. PHYSICAL EXAMINATION: At the time of discharge showed blood pressure of 136/73 , heart rate of 73 and regular, respiratory rate 14, oxygen saturation 97% on room air, temperature 98.4. General: The patient is a very pleasant 81-year- old male, who is in no acute distress. Alert, awake, and oriented x3. HEENT: Head: Atraumatic, normocephalic. Eyes: Pupils are equal, reactive to light and accommodation. Oropharynx clear. Mucosa moist. Neck: Supple. No JVD, no bruits bilaterally. Cardiovascular: Regular rate and rhythm. No murmur. Respiratory: Clear to auscultation bilaterally. Abdomen: Soft, nontender. Bowel sounds present in all 4 quadrants. Extremities: There is no edema. Pulses 2+ bilaterally. No clubbing or cyanosis. On evaluation of the skin, the patient's bilateral temporal arteries are Steri-Strip'ed after the biopsy. Please note that after initial Solu-Medrol infusion, the patient's joint pain improved and his problems with vision did not recur, although occasionally he still feels that when he looks to the left, he has diplopia but that had been a problem for this patient for the past 2 years. Please note that this is a short summary of the patient's hospital stay. Please refer to further medical record for details. TIME SPENT: Approximately 45 minutes were spent on the patient's discharge. [id number]/[facility] #: [id number] MTDD
== END 2016-12-25 17:51 | disposition home or self-care (01) | DRG 516 ==
LOC: ED 15:58 → MEDTELE 21:33 → OBSVTOIN 12-24 17:35
PROVIDERS: ADMIT Internal Medicine; ATTEND Internal Medicine
PROC: 03BS0ZX Excision of Right Temporal Artery, Open Approach, Diagnostic (ICD-10-PCS; 2016-12-25)
PROC: 03BT0ZX Excision of Left Temporal Artery, Open Approach, Diagnostic (ICD-10-PCS; principal; 2016-12-25 14:30)
DX: M31.6 Other giant cell arteritis (principal); G45.3 Amaurosis fugax; E11.9 Type 2 diabetes mellitus without complications; F32.9 Major depressive disorder, single episode, unspecified; K20.9 Esophagitis, unspecified; E78.5 Hyperlipidemia, unspecified; R03.0 Elevated blood-pressure reading, without diagnosis of hypertension; I25.10 Atherosclerotic heart disease of native coronary artery without angina pectoris; Z85.038 Personal history of other malignant neoplasm of large intestine; Z79.84 Long term (current) use of oral hypoglycemic drugs; Z79.82 Long term (current) use of aspirin; Z79.899 Other long term (current) drug therapy; Z88.1 Allergy status to other antibiotic agents; Z87.891 Personal history of nicotine dependence; Z88.2 Allergy status to sulfonamides; Z88.8 Allergy status to other drugs, medicaments and biological substances
CPT/HCPCS: 36415; 70450; 70496; 70498; 70551; 80053; 80061; 81003; 82947; 83036; 83605; 84443; 84484; 85025; 85610; 85652; 86140; 88305; 93005; 93306; A9270-GY; G8978-GP-CH; G8979-GP-CH; G8980-GP-CH; J1644; J2001; J2930; Q9967

== ENCOUNTER 2018-07-05 10:04 | Day surgery (SDC) | payer MEDICARE, BC ==
[~2018-07-05 10:04] MED LIST: Buffered Lidocaine 1% SYRIN* 1 ML/SYRINGE INTRADERM ONE; Lactated Ringers 1000 ML Bag* 1,000 ML IV SCH
[2018-07-05] MEDS ORDERED: Bupivacaine 0.5%* 50 ML VIAL ONE (11:18)
[2018-07-05] MEDS ORDERED: Naloxone* 0.4 MG/ML 1 ML VIAL IV PRN (11:24)
[2018-07-05] MEDS ORDERED: ceFAZolin 2 GM PREMIX in ORs 2 GM/50 ML BAG IVPB ONE (11:36)
[2018-07-05] MEDS ORDERED: Lidocaine 2% PF * 5 ML VIAL ONE (11:44)
[2018-07-05] MEDS ORDERED: Propofol* 10 MG/ML 20 ML BTL ONE (11:44)
[2018-07-05 13:16] VITALS: BP 157/82
--- NOTE | 2018-07-05 19:44 | OP ---
DATE OF OPERATION: 07/05/18 - [facility] DATE OF : 39 SURGEON: Kleber Hi MD MANAGER CATEGORY: MERRITT Marc ANESTHESIOLOGIST: Dr. Way. ANESTHESIA: Local MAC. PRE-OP DIAGNOSIS: Left index finger mucous cyst. POST-OP DIAGNOSIS: Left index finger mucous cyst. OPERATIVE PROCEDURE: Excision of left index finger mucous cyst. INDICATIONS: Logan is 82. He has a left index finger mucous cyst. It is quite large. We had talked about risks and benefits. He had wanted to proceed with the procedure. ESTIMATED BLOOD LOSS: 1 mL. COMPLICATIONS: None. FINDINGS: See above and below. DESCRIPTION OF PROCEDURE: Logan was seen in the preoperative holding area. The correct site, side, and procedure were identified. We came back to the operating room, where he got some anesthesia. I then performed a digital block with 0.5% Marcaine. The arm was then prepped and draped in the usual fashion and a time-out was performed. The finger was exsanguinated with a Tourni-Cot and this was left on proximally throughout the case. I then made a little T-shaped incision over the dorsoradial aspect of the left index finger DIP joint. Full-thickness skin flap was raised. The cyst was shelled out with the [place] blade and this was handed off as a specimen. I tracked it back to the DIP joint in the interval between the radial collateral ligament and the terminal extensor tendon. This was cleaned up with the [place] blade and then cauterized with a Bovie. At this point, everything was looking good. The wound was irrigated out. The skin was closed with 4-0 nylon suture. Wound was dressed with Xeroform, 4x4, 1-inch Deny, and Coban. The Tourni- Cot was removed. The finger pinked up immediately. He was taken to the recovery room in stable condition. [id number]/[facility] #: [id number] MTDD
== END 2018-07-05 13:20 | disposition home or self-care (01) ==
LOC: OR 10:04
PROVIDERS: ATTEND Orthopaedic Surgery Hand Surgery
DX: M67.442 Ganglion, left hand (principal); E11.9 Type 2 diabetes mellitus without complications; Z79.4 Long term (current) use of insulin; Z87.891 Personal history of nicotine dependence; N18.9 Chronic kidney disease, unspecified; E78.00 Pure hypercholesterolemia, unspecified; I12.9 Hypertensive chronic kidney disease with stage 1 through stage 4 chronic kidney disease, or unspecified chronic kidney disease; Z85.038 Personal history of other malignant neoplasm of large intestine
CPT/HCPCS: 88304; J0690; J2704

== ENCOUNTER 2018-09-30 10:50 | Inpatient (IN) | payer MEDICARE, BC ==
[2018-09-30] MEDS ORDERED: Tetan/Diph/Pertus SYR(Tdap)* 0.5 ML SYR(BOOSTRIX) use SYR IM ONE (10:58)
--- NOTE | 2018-09-30 11:04 | ED ---
Head Injury - HPI Summary HPI Summary: The patient is an 82 y/o M presenting to [facility] arriving by ambulance accompanied by with a chief complaint of mechanical fall resulting in mild head injury this morning. He was out walking with his while they were on their way to do laundry when the patient sustained a mechanical fall. He fell backwards onto his head from which he suffered an abrasion on the occipital area. He additionally c/o mild neck pain, which is alleviated by the C-spine collar placed by EMS. EMS reports that he had a few episodes of wretching without producing any emesis. Although there was no LOC, the ntoes that the patient has had increasing confusion for a little while. He has FROM of extremities. He states he falls frequently. His reports that the patient has hx of colon cancer for which he had been receiving chemotherapy treatments for, but he has been in remission for the last three years; he also has temporal arteritis which had been treated with high doses of Prednisone, but he is only on 2mg QD now. He has seen Dr. Keane, neurology, who has diagnosed the patient with a cognitive impairment and slight dementia. - History Of Current Complaint Stated Complaint: FALL PER EMS Hx Obtained From: Patient, Family/Human Resources Temp - , EMS Mechanism Of Injury: Fall From A Standing Position Onset/Duration: Started Minutes Ago, Traumatic - mild abrasion on head, Still Present Onset of Pain: Post Accident Severity Currently: Mild Severity Initially: Mild Pain Intensity: 0 Pain Scale Used: 0-10 Numeric Location of Head Injury: Occipital Character: Dull Aggravating Factor(s): Other: - none Alleviating Factor(s): Other: - c-spine collar Associated Signs And Symptoms: Neck Pain - mild, Nausea, Other: - POSITIVE: abrasion on occipital head; NEGATIVE: LOC - Allergies/Home Medications Allergies/Adverse Reactions: Allergies Allergy/AdvReac Type Severity Reaction Status Date / Time glipizide Allergy Rash Verified 09/30/18 11:07 Sulfa (Sulfonamide Allergy Rash Verified 09/30/18 11:07 Antibiotics) aureomycin Allergy Rash Uncoded 09/30/18 11:07 Home Medications: Home Medications BuPROPion XL* [Bupropion XL*] 300 mg PO BEDTIME 09/30/18 [History Confirmed ] Calcium Carbonate/Vitamin D3 [Calcium/Vitamin D] 1 cap PO QAM 09/30/18 [History Confirmed 09/30/18] Cetirizine* [ZyrTEC 10 MG TAB*] 10 mg PO QAM 09/30/18 [History Confirmed ] Magnesium Oxide TAB* [MagOx 400 TAB*] 400 mg PO QAM 09/30/18 [History Confirmed 09/30/18] Metformin ER (NF) 1,000 mg PO BID 09/30/18 [History Confirmed 09/30/18] Methotrexate TAB* 5 mg PO Q7D 09/30/18 [History Confirmed 09/30/18] Metoprolol Succinate XL TAB* [Toprol XL TAB*] 50 mg PO QAM 09/30/18 [History Confirmed 09/30/18] Repaglinide TAB* [Prandin TAB*] 0.5 mg PO BEDTIME 09/30/18 [History Confirmed ] Rosuvastatin (NF) [Crestor (NF)] 10 mg PO BEDTIME 09/30/18 [History Confirmed ] Sertraline* [Zoloft*] 50 mg PO BEDTIME 09/30/18 [History Confirmed 09/30/18] Thiamine TAB* [Vitamin B-1 TAB*] 100 mg PO QAM 09/30/18 [History Confirmed 09/30] predniSONE TAB* [Deltasone 1 MG TAB*] 2 mg PO QAM 09/30/18 [History Confirmed ] PMH/Surg Hx/FS Hx/Imm Hx Endocrine/Hematology History: Reports: Hx Diabetes - type 2 Cardiovascular History: Reports: Hx Coronary Artery Disease - iscemic heart diease, Hx Hypertension - on meds, Hx Peripheral Vascular Disease - right lower leg Denies: Hx Pacemaker/ICD, Other Cardiovascular Problems/Disorders Respiratory History: Reports: Hx Sleep Apnea - no refused study Denies: Hx Asthma, Other Respiratory Problems/Disorders GI History: Denies: Other GI Disorders History: Denies: Hx Dialysis, Hx Renal Disease Musculoskeletal History: Reports: Hx Arthritis - neck, hands Denies: Hx Osteoporosis, Other Musculoskeletal History Sensory History: Reports: Hx Cataracts, Hx Contacts or Glasses - glasses, Hx Hearing Aid - PT WONT WEAR Opthamlomology History: Reports: Hx Cataracts, Hx Contacts or Glasses - glasses Neurological History: Reports: 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 APPENDECTOMY; . colon resection, 2015, [facility];. temporal bx;. DR. SMITH GANGLION CYSTER REMOVED/TRIGGER FINGER; Hx Anesthesia Reactions: Yes - has acted out post op - Family History Known Family History: Positive: Diabetes - Social History Lives: With Family - Alcohol Use: Daily Alcohol Amount: 1 glass of wine daily Hx Substance Use: No Substance Use Type: Reports: None Hx Tobacco Use: Yes Smoking Status (MU): Former Smoker Type: Cigarettes Do You Chew or Dip Tobacco: No Amount Used/How Often: pack a day for 20 yrs Have You Chewed or Dipped Tobacco in the LAST YEAR: No Have You Smoked in the Last Year: No Review of Systems Negative: Vomiting Positive: Other - mild neck pain. Negative: Decreased ROM Positive: Other - abrasion on occipital head All Other Systems Reviewed And Are Negative: Yes Physical Exam - Summary Physical Exam Summary: VITAL SIGNS: Reviewed. GENERAL: Patient is a well-developed and nourished male who is lying comfortable in the stretcher. Patient is not in any acute respiratory distress. HEAD AND FACE: No signs of trauma. No ecchymosis, hematomas or skull depressions. No sinus tenderness. EYES: PERRLA, EOMI x 2, No injected conjunctiva, no nystagmus. No photophobia. EARS: Hearing grossly intact. Ear canals and tympanic membranes are within normal limits. MOUTH: Oropharynx within normal limits. NECK: Supple, trachea is midline, no adenopathy, no JVD, no carotid bruit, mild c-spine tenderness, neck with full ROM. No meningeal signs, no Kernig's or brudzinskis signs. CHEST: Symmetric, no tenderness at palpation LUNGS: Clear to auscultation bilaterally. No wheezing or crackles. CVS: Regular rate and rhythm, S1 and S2 present, no murmurs or gallops appreciated. ABDOMEN: Soft, non-tender. No signs of distention. No rebound no guarding, and no masses palpated. Bowel sounds are normal. EXTREMITIES: FROM in all major joints, no edema, no cyanosis or clubbing. NEURO: Alert but not fully oriented. No acute neurological deficits. Speech is normal and follows commands. SKIN: Dry and warm. Abrasion on occipital head. GCS: 15 Triage Information Reviewed: Yes Vital Signs Reviewed: Yes - Martin Coma Scale Best Eye Response: 4 - Spontaneous Best Motor Response: 6 - Obeys Commands Best Verbal Response: 5 - Oriented Coma Scale Total: 15 Diagnostics - Laboratory Result Diagrams: 09/30/18 11:27 09/30/18 11:27 Lab Statement: Any lab studies that have been ordered have been reviewed, and results considered in the medical decision making process. - CT Brain CT CT Interpretation Completed By: Radiologist Summary of CT Findings: 1. Small LEFT parietal scalp hematoma without evidence for skull fracture or traumatic brain injury. 2. Involutional change and stigmata of chronic small vessel schema disease. ED physician has reviewed this report. Cervical Spine CT CT Interpretation Completed By: Radiologist Summary of CT Findings: No CT evidence for traumatic cervical spine injury. ED physician has reviewed this report. Re-Evaluation - Re-Evaluation First Eval Re-Evaluation Time: 12:35 Comment: I spoke with the patient about discharge home with follow up with Dr. Keane for MRI and EEG after negative imaging results. Second Eval Re-Evaluation Time: 12:55 Change: Worse Comment: The nurse reported that when the patient's and daughter tried to get the patient up for discharge, he started vomiting. He is also currently nauseous. Head Injury Course/Dx Assessment/Plan: The patient is an 82 y/o M presenting to [facility] arriving by ambulance accompanied by with a chief complaint of mechanical fall resulting in mild head injury this morning. He was out walking with his while they were on their way to do laundry when the patient sustained a mechanical fall. He fell backwards onto his head from which he suffered an abrasion on the occipital area. He additionally c/o mild neck pain, which is alleviated by the C-spine collar placed by EMS. EMS reports that he had a few episodes of wretching without producing any emesis. Although there was no LOC, the ntoes that the patient has had increasing confusion for a little while. He has FROM of extremities. He states he falls frequently. His reports that the patient has hx of colon cancer for which he had been receiving chemotherapy treatments for, but he has been in remission for the last three years; he also has temporal arteritis which had been treated with high doses of Prednisone, but he is only on 2mg QD now. He has seen Dr. Keane, neurology, who has diagnosed the patient with a cognitive impairment and slight dementia. Blood test results without any significant abnormality except for a slight anemia, BUN of 26, creatinine of 1.31, and glucose of 148. Head CT impression: Small left parietal hematoma with no evidence of a skull fracture or traumatic pain injury. Involutional changes and stigmata of chronic small vessel ischemic disease. C spine CT impression: No CT evidence for traumatic cervical spine. Patient was given tetanus boosters since the patients and the patient do not know when he last had a tetanus vaccine. I discussed the findings and test results with Dr. Arizmendi, who is covering for Dr. Keane, and he agrees for the patient to be discharged home and get the MRI and EEG as an outpatient. Therefore, I discussed my physical exam and findings with the patient and the patients and to follow-up with the primary care physician and Dr. Keane and continue with appointment for the MRI and EEG. The patient continues to be baseline and he is alert and not oriented. Patient is hemodynamically stable. Addendum: Before the patient was discharged, and as soon as the patient tried to sit up and try to get up from the bed, the patient started having nausea and vomiting. The patient was given IV fluids, and sulfa for the nausea and vomiting , which was improved. I tried to relieve the patient before discharge, and the reports that the patient has unsteady gait, and he is not feeling well. Therefore, I discussed my physical exam and findings with Dr. Arizmendi again, and he recommends for the patient to be admitted for a post concussion syndrome and he will consult for this patient. I discussed my physical exam, findings and test results with Dr. Gonsales from the hospitalist services and he agrees to admit patient to his services. Patient is hemodynamically stable alert but not oriented. - Diagnoses Provider Diagnoses: Accident due to mechanical fall without injury, Post concussion syndrome - Physician Notifications Discussed Care Of Patient With: Larry Arizmendi - neurology Time Discussed With Above Provider: 12:15 Instructed by Provider To: Other - I consulted with Dr. Arizmendi who recommends that the patient get an EEG and MRI as an outpatient. After the patient starting to vomit during discharge, I spoke with Dr. Arizmendi again, and he and Dr. Gonsales accept the patient for admission for further care at 1505 for post concussion syndrome. Discharge - Sign-Out/Discharge Documenting (check all that apply): Patient Departure - Patient is accepted for admission by Dr. Gonsales. Patient Received Moderate/Deep Sedation with Procedure: No - Discharge Plan Condition: Good Disposition: HOME - Billing Disposition and Condition Condition: GOOD Disposition: Home - Attestation Statements Document Initiated by Stephanieibe: Yes Documenting Scribe: Carol He Provider For Whom Ame is Documenting (Include Credential): Dr. Wolf Sotomayor MD Scribe Attestation: I, Carol He, scribed for Dr. Wolf Sotomayor MD on 09/30/18 at 2144. Scribe Documentation Reviewed: Yes Provider Attestation: The documentation as recorded by the Carol middleton accurately reflects the service I personally performed and the decisions made by me, Dr. Wolf Sotomayor MD Status of Scribe Document: Viewed
[2018-09-30 11:41] LABS: ABS Eosinophils 0.2 10^3/ul (0-0.6); ABS Lymphocytes 0.7 10^3/ul (1.0-4.8); ABS Monocytes 0.7 10^3/ul (0-0.8); ABS Neutrophils 5.9 10^3/ul (1.5-7.7); Eosinophil % 2.3 %; Hematocrit 39 % (42-52); Hemoglobin 13.3 g/dL (14.0-18.0); Lymphocyte % 9.2 %; Mean Corpuscular HGB Conc 34 g/dL (31-36); Mean Corpuscular Hemoglobin 32 pg (27-31); Mean Corpuscular Volume 93 fL (80-94); Platelet Count 200 10^3/uL (150-450); Red Blood Count 4.19 10^6 /uL (4.18-5.48); Red Cell Distribution Width 14 % (10.5-15); White Blood Count 7.5 10^3/uL (3.5-10.8)
[2018-09-30 11:58] LABS: Albumin 4.1 g/dL (3.2-5.2); BUN/Creatinine Ratio 19.8 (8-20); Calcium 9.4 mg/dL (8.6-10.3); EGFR African American 63.7 (>60); EGFR Non-African American 52.6 (>60); Globulin 2.1 g/dL (2-4); Potassium 4.5 mmol/L (3.5-5.0); Total Bilirubin 0.5 mg/dL (0.2-1.0); Total Protein 6.2 g/dL (6.4-8.9)
[2018-09-30] MEDS ORDERED: NS 0.9% 1000 ML** 1,000 ML IV ONE (12:57)
[2018-09-30] MEDS ORDERED: Ondansetron INJ* 2 MG/ML VIAL IV ONE (12:57)
[2018-09-30] MEDS ORDERED: Ondansetron INJ* 2 MG/ML VIAL IV PRN (15:59)
--- NOTE | 2018-09-30 18:19 | HP ---
CC: Dr. Alvarenga; Dr. Branch * ADMISSION HISTORY AND PHYSICAL: DATE OF ADMISSION: PRIMARY CARE PROVIDER: Dr. Alvarenga. WAREHOUSE ASSOCIATE: Dr. Branch. HEALTHCARE PROXY: His . CODE STATUS: DNR, discussed with the patient and his . SOURCE OF INFORMATION: History obtained from interview with the patient, his , his daughter, review of past medical records. RELIABILITY: Fair. CHIEF COMPLAINT: Fall and confusion. HISTORY OF PRESENT ILLNESS: This is an 82-year-old man with past medical history of colon cancer, CAD and history of temporal arteritis, on long-term steroids, recently tapered from 3 mg to 2 mg a day this week, who over the last several months has been increasingly confused, thought to be cognitive decline or early dementia, being followed by Neurology, for instance, a month prior. Workup overnight turned on all the lights in the house. Recently, got lost trying to get home from an appointment, which was never actually scheduled. He has been forgetting numbers and has been episodic. Yesterday, he fell backwards in the garden, did not tell anybody, it only became apparent until today when he relayed this information. This morning, walking with a bag with his , he tripped on a curb, slipped backwards and hit the top of his head. After standing, he was very confused, even compared to his baseline, had an episode of emesis and is dramatically off balance. He was noticed to have decreased appetite and 5-pound weight loss recently. Otherwise, no fevers, chills, night sweats. He has an episodic cough that is inconsistent. No shortness of breath. No skin rashes, changes in vision, or GI symptoms, or headache pre or post fall. PAST MEDICAL HISTORY: Includes: 1. Colon cancer, stage III, status post chemosurgery in 2014 and 2016, p.r.n. oxygen overnight. 2. CAD. 3. Depression. 4. Type 2 diabetes. 5. 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 6. Esophagitis. 7. Arthritis. 8. History of appendectomy. 9. Cryptorchids. 10. History of TIA/temporal arteritis in 2017, on chronic steroids. MEDICATIONS: Medications reviewed: 1. Prandin 0.5 mg at bedtime. 2. Zyrtec 10 mg in the morning. 3. Aspirin 81 mg daily. 4. Magnesium oxide 400 mg in the morning. 5. Folic acid 1 mg in the morning. 6. Calcium/vitamin D 1 tab daily. 7. Thiamine 100 mg in the morning. 8. Vitamin B12 1000 mcg in the morning. 9. Cholecalciferol 2000 units in the morning. 10. Sertraline 50 mg at bedtime. 11. Bupropion 300 mg at bedtime. 12. Rosuvastatin 10 mg at bedtime. 13. Metoprolol succinate 50 mg in the morning. 14. Methotrexate 5 mg weekly on Mondays. 15. Prednisone 2 mg daily. 16. Metformin 1000 mg twice daily. ALLERGIES: To GLIPIZIDE, SULFA, and AUREOMYCIN. SOCIAL HISTORY: Quit tobacco at age 60, has a 25-pack history. No alcohol. Lives with family. FAMILY HISTORY: No history of temporal arteritis or CVAs. REVIEW OF SYSTEMS: As per HPI, otherwise all other systems negative. PHYSICAL EXAMINATION GENERAL: Well-appearing gentleman, sitting up in bed, interactive, no apparent distress. VITAL SIGNS: In the emergency room, systolics 130 to 181/80 to 132, heart rate is 83, respiratory rate is 16, 94% on room air, T-max is 97.9. HEENT: Oropharynx is clear. Moist mucous membranes. Sclerae are anicteric. LUNGS: Clear to auscultation. HEART: Regular rate and rhythm. No murmurs, rubs, or gallops. ABDOMEN: Soft, nontender, nondistended. EXTREMITIES: Warm and well perfused. No clubbing, cyanosis, or edema. He moves all 4 extremities with equal and symmetric strength. He has 1/3 word recall at 3 minutes. He is able to follow simple 2-step commands such as raise right hand appropriately; however, has poor attention. Difficult to perform an finger-nose- finger, sometimes touches his nose, sometimes forgets to touch anybody's nose or finger. He has mild dysdiadochokinesia bilaterally. NEURO: His cranial nerves II through XII are intact. Gait was not assessed. LABORATORY DATA/DIAGNOSTIC STUDIES: Pertinent laboratory data: Hemoglobin 13.3, white blood cell count 7.5, BUN 26, creatinine 1.1, glucose 148, lactic acid 1.6. Data reviewed: CT cervical spine, no CT evidence for traumatic cervical spine injury. CT brain, small left parietal scalp hematoma without evidence for skull fracture or traumatic brain injury. Involutional changes with stigmata of chronic small vessel ischemic changes. ASSESSMENT AND PLAN: This is an 82-year-old male with past medical history as indicated above, worsening cognitive decline, potentially early dementia versus Parkinson's, suffered a fall today with strike of his head, immediately followed by increasing confusion. 1. Acute confusional change. Suspect postconcussive syndrome. I think this warrants monitoring in the hospital given his baseline is not well delineated. He may have difficulty identifying some symptomatology that others would be able to relay on physical exam and/or history. OBV in the hospital with neurological checks. Continue home medications. Doubt worsening temporal arteritis, temporal arteries were nontender. Has no other neurological symptoms. 2. Hypertension. Continue home medications. 3. Hyperlipidemia. Continue atorvastatin. 4. Diabetes. Continue Prandin, . 5. Depression. Continue bupropion, sertraline. 6. DVT prophylaxis, heparin subcu. [id number]/[facility] #: [id number] [facility]
[2018-09-30] MEDS: BuPROPion XL* 300 MG TAB.XL PO SCH (20:29)
[2018-09-30] MEDS: Atorvastatin* 20 MG TAB PO SCH (20:29)
[2018-09-30] MEDS: metFORMIN* 1,000 MG TAB PO SCH (20:29)
[2018-09-30] MEDS: Acetaminophen TAB* 325 MG PO PRN (20:29)
[2018-09-30] MEDS: Sertraline* 50 MG TAB PO SCH (20:30)
[2018-09-30] MEDS: Repaglinide TAB* 0.5 MG PO SCH (20:30)
[2018-09-30] MEDS: Heparin VIAL(*) 5000 UNITS/ML VIAL (FIVE THOUSAND) SUBCUT SCH (20:33)
[2018-09-30 22:25] LABS: Urine Appearance Clear; Urine Bilirubin Negative (Negative); Urine Blood Negative (Negative); Urine Color Straw; Urine Glucose Negative (Negative); Urine Ketones Trace (Negative); Urine Nitrite Negative (Negative); Urine Protein Negative (Negative); Urine Urobilinogen Negative (Negative)
[2018-10-01] MEDS: Heparin VIAL(*) 5000 UNITS/ML VIAL (FIVE THOUSAND) SUBCUT SCH ×3 (05:40→22:45)
[2018-10-01] MEDS: Metoprolol Succinate XL TAB* 50 MG PO SCH (09:48)
[2018-10-01] MEDS: Folic Acid TAB* 1 MG PO SCH (09:48)
[2018-10-01] MEDS: Cyanocobalamin TAB* 500 MCG PO SCH (09:48)
[2018-10-01] MEDS: metFORMIN* 1,000 MG TAB PO SCH ×2 (09:49→22:43)
[2018-10-01] MEDS: predniSONE TAB* 1 MG PO SCH (09:49)
[2018-10-01] MEDS: Cetirizine* 10 MG TAB PO SCH (09:49)
[2018-10-01] MEDS: Magnesium Oxide TAB* 400 MG PO SCH (09:49)
[2018-10-01] MEDS: Thiamine TAB* 100 MG TAB PO SCH (09:49)
[2018-10-01] MEDS: Aspirin EC TAB* 81 MG TAB.EC PO SCH (09:49)
[2018-10-01 15:48] LABS: TSH (Thyroid Stimulating Horm) 1.39 mcIU/mL (0.34-5.60)
--- NOTE | 2018-10-01 15:57 | PN ---
Subjective Date of Service: 10/01/18 Interval History: Seen with at bedside Remains confused No improvement since yesterday Objective Active Medications: Acetaminophen (Tylenol Tab*) 650 mg PO Q4H PRN PRN Reason: FEVER/PAIN Last Admin: 09/30/18 20:29 Dose: 650 mg Aspirin ([facility]in Ec Tab*) [facility] [place] Last Admin: 10/01/18 09:49 Dose: 81 mg Atorvastatin Calcium (Lipitor*) 20 mg PO BEDTIME [facility]; Protocol Last Admin: 09/30/18 20:29 Dose: 20 mg Bupropion HCl (Bupropion Xl*) 300 mg PO BEDTIME [facility] Last Admin: 09/30/18 20:29 Dose: 300 mg Cetirizine HCl (Zyrtec*) 10 mg PO [facility] Last Admin: 10/01/18 09:49 Dose: 10 mg Cyanocobalamin (Vitamin B12 Tab*) 1,000 mcg PO [facility] Last Admin: 10/01/18 09:48 Dose: 1,000 mcg Folic Acid (Folvite Tab*) 1 mg PO [facility] Last Admin: 10/01/18 09:48 Dose: 1 mg Heparin Sodium (Porcine) (Heparin Vial(*)) 5,000 units SUBCUT Q8HR [facility] Last Admin: 10/01/18 05:40 Dose: 5,000 units Magnesium Oxide (Magox 400 Tab*) 400 mg PO [facility] Last Admin: 10/01/18 09:49 Dose: 400 mg Metformin HCl (Glucophage*) 1,000 mg PO BID [facility] Last Admin: 10/01/18 09:49 Dose: 1,000 mg Methotrexate (Methotrexate Tab*) 5 mg PO Q7D [facility] Metoprolol Succinate (Toprol Xl Tab*) [facility] [place] Last Admin: 10/01/18 09:48 Dose: 50 mg Ondansetron HCl (Zofran Inj*) 4 mg IV Q4H PRN PRN Reason: NAUSEA/VOMITING Prednisone (Deltasone Tab*) [facility] [place] Last Admin: 10/01/18 09:49 Dose: 2 mg Repaglinide (Prandin Tab*) 0.5 mg PO BEDTIME [facility] Last Admin: 09/30/18 20:30 Dose: 0.5 mg Sertraline HCl (Zoloft*) 50 mg PO BEDTIME [facility] Last Admin: 09/30/18 20:30 Dose: 50 mg Thiamine HCl (Vitamin B-1 Tab*) 100 mg PO QAM [facility] Last Admin: 10/01/18 09:49 Dose: 100 mg Vital Signs - 8 hr 10/01/18 10/01/18 08:00 11:15 Temperature 97.7 F Pulse Rate 77 Respiratory 18 18 Rate Blood Pressure 151/69 (mmHg) O2 Sat by Pulse 94 Oximetry Oxygen Devices in Use Now: None Appearance: NAD, sitting up in bed Eyes: No Scleral Icterus, PERRLA Ears/Nose/Mouth/Throat: NL Teeth, Lips, Gums, Clear Oropharnyx Neck: NL Appearance and Movements; NL JVP, Trachea Midline Respiratory: Symmetrical Chest Expansion and Respiratory Effort, Clear to Auscultation Cardiovascular: RRR Abdominal: NL Sounds; No Tenderness; No Distention, No Hepatosplenomegaly Extremities: No Edema Skin: No Rash or Ulcers Neurological: - - very poor attention, poor recall and orientated to self only Result Diagrams: 09/30/18 11:27 09/30/18 11:27 Assess/Plan/Problems-Billing Assessment: 82 yo M h/o progressive neurological decline pw after fall with change in mental status - Patient Problems (1) Progressive supranuclear palsy Comment: appreciate neurology assistance PT check MRI will need assistance with placement (2) Hypertension Comment: metoprolol (3) Concussion Comment: monitor (4) Diabetes Comment: prandin metformin (5) History of temporal arteritis Comment: prednisone (6) DVT prophylaxis Comment: HSQ
--- NOTE | 2018-10-01 17:14 | CONS ---
CC: Dr. Fly Keane* NEUROLOGY CONSULTATION: DATE OF CONSULT: 10/01/18 REFERRING PROVIDER: Dr. Gonsales. CHIEF COMPLAINT: Fall, cognitive decline. 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 Purportedly, he was carrying some bags and caught his foot on a curb, but ended up falling backwards and striking his occiput. There was no loss of consciousness, but he was more confused than usual and then vomited. He was brought into the emergency room where he continued to have some vomiting and so was admitted with a diagnosis of concussion. He had a CT scan of the brain, which revealed a scalp hematoma, but no intracranial bleeding. Today, he denies headache. He had some nausea earlier today. He is very confused and disoriented, which is above his baseline level of cognitive impairment described below. For about a year and a half, he has had progressive cognitive decline. It got to the point where he had to stop driving a few months ago. He has also had postural instability with multiple falls, which is also worsening over time. He has had numerous falls going back at least many months. He saw Dr. Keane as an outpatient and I do not have access to his consult here in the hospital, but will review it later. He was felt to have signs of parkinsonism and dementia. He also notes that his vision is poor and complains of double vision. He has very poor attention and concentration and veers off to various historical tangents in going through his history of present illness and past medical history. His believes that when was diagnosed with temporal arteritis in 2017 and started on steroids that that was the beginning of some cognitive changes. He became very irritable over time and became more forgetful and more unsteady. PAST MEDICAL HISTORY: Notable for type 2 diabetes; stage III colon cancer, treated with chemotherapy and surgery in 2014 and 2016. He has a history of coronary artery disease. He has had an appendectomy; temporal arteritis, treated with steroids and a temporal artery biopsy; esophagitis. MEDICATIONS: At home, consist of: 1. Prandin. 2. Aspirin 81 mg p.o. q. day. 3. Magnesium oxide 400 mg p.o. q. day. 4. Folic acid 1 mg p.o. q. day. 5. Vitamin B12 1000 mcg p.o. q. day. 6. Thiamine 100 mg p.o. q. day. 7. Sertraline 50 mg p.o. q.h.s. 8. Bupropion 300 mg p.o. q.h.s. 9. Rosuvastatin 10 mg p.o. q. day. 10. Metoprolol 50 mg p.o. q. day. 11. Methotrexate 5 mg weekly on Mondays. 12. Prednisone 2 mg p.o. q. day. 13. Metformin 1000 mg p.o. b.i.d. ALLERGIES: He is allergic to SULFA DRUGS and GLIPIZIDE. SOCIAL HISTORY: He lives at home with his . 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 He quit smoking many years ago. He does not drink alcohol. REVIEW OF SYSTEMS: Currently negative for headaches. Positive for double vision, which fluctuates. He notes some back pain. He has not had any problems swallowing. His weight has been stable. He talks in his sleep and thrashes about in his sleep. He has not fallen out of bed. He and his have noted some tremors in his hands. PHYSICAL EXAM: He is well nourished and well hydrated. Temperature most recently 97.7, blood pressure 150/70, heart rate in the 70s and is regular. Respiratory rate is 18 and oxygen saturation is 94% on room air. Heart tones are normal. There are no cervical bruits. There is a small scalp hematoma on his occiput. Neck is supple. There is no oral trauma. Neurological Exam: Pupils react equally from 3 down to 2 mm. Eye movements are notable for diminished upward gaze. There is impersistence of horizontal gaze. Downgaze is intact. Visual baez are full to confrontation. Funduscopic exam reveals a sharp disc in the right eye. Facial musculature is symmetric. Palate and tongue are normal and speech is clear. He is hard of hearing. Motor exam reveals some cogwheeling of the right arm and right leg. There is a slight increase in muscle tone in the left leg as well. He has mild proximal weakness in the lower extremities. He has good strength in the upper extremities proximally and distally. There is a mild sustention tremor in the right hand more than the left. There is mild action tremor on [id number] maneuver, more on the left than the right. Finger taps are slow and clumsy bilaterally and fairly symmetrically. Reflexes are brisk at knees and biceps, absent at the ankles. Plantar responses are flexor bilaterally. We attempted to ambulate him and he is extremely unsteady with a tendency towards retropulsion. With a walker, he takes very small short steps with start hesitation. He is clearly unstable. Mental status finds him to be alert, but disoriented. He does not know how long he has been in the hospital. He does not recall the more recent fall, but refers to multiple old falls. He goes off on tangents asking about our music program here and what our syllabus is. He has word-finding problems, but generally produces fluid sentences. Memory is extremely impaired. DIAGNOSTIC STUDIES/LAB DATA: Laboratory data includes an unremarkable CBC other than hemoglobin 13.3, unremarkable chemistry profile other than a creatinine of 1.31 which is similar to historical values. TSH from last night is normal at 1.39 and vitamin B12 is pending. Glucose was 148 yesterday and 139 last evening. He had a CAT scan of the brain, which I reviewed and reveals atrophy. CT scan of the cervical spine was obtained yesterday in the emergency room and reveals multilevel degenerative spondylosis, but no evidence of traumatic injury. I reviewed his MRI picture of the brain from 2017. There is significant amount of atrophy and modest amount of what appeared to be chronic subcortical vascular changes. There may be selective midbrain atrophy as well. IMPRESSION AND PLAN: Impression is that of possible progressive supranuclear palsy. He has had at least a year and a half of progressive cognitive and motor decline. He has postural instability and some eye movement abnormalities as well. An MRI of the brain without contrast has been ordered and he is currently being transported down for that to be done. Vitamin B12 level is pending. I will review his MRI images and compare them to the prior ones and then talk further with Mr. Romero and his regarding my diagnostic impression, prognosis, and recommendations. [id number]/[facility] #: [id number] [facility]
[2018-10-01] MEDS ORDERED: Lorazepam PYXIS KEY PRN (19:20)
[2018-10-01] MEDS ORDERED: LORazepam INJ* 2 MG/ML 1 ML VIAL IV PUSH ONE (19:21)
[2018-10-01] MEDS ORDERED: Haloperidol INJ IV/IM* 5 MG/ML AMP IM PRN (19:22)
[2018-10-01] MEDS ORDERED: Haloperidol INJ IV/IM* 5 MG/ML AMP ONE (19:25)
[2018-10-01] MEDS: Atorvastatin* 20 MG TAB PO SCH (22:42)
[2018-10-01] MEDS: BuPROPion XL* 300 MG TAB.XL PO SCH (22:43)
[2018-10-01] MEDS: Sertraline* 50 MG TAB PO SCH (22:43)
[2018-10-01] MEDS: Repaglinide TAB* 0.5 MG PO SCH (22:43)
[2018-10-02] MEDS: Heparin VIAL(*) 5000 UNITS/ML VIAL (FIVE THOUSAND) SUBCUT SCH ×4 (01:21→20:35)
[2018-10-02] MEDS: BuPROPion XL* 300 MG TAB.XL PO SCH ×2 (01:21→20:34)
[2018-10-02] MEDS: Sertraline* 50 MG TAB PO SCH ×2 (01:22→20:34)
[2018-10-02] MEDS: metFORMIN* 1,000 MG TAB PO SCH ×3 (01:22→20:34)
[2018-10-02] MEDS: Atorvastatin* 20 MG TAB PO SCH ×2 (01:23→20:32)
[2018-10-02] MEDS: Repaglinide TAB* 0.5 MG PO SCH ×2 (01:23→20:34)
[2018-10-02] MEDS: Aspirin EC TAB* 81 MG TAB.EC PO SCH (09:29)
[2018-10-02] MEDS: Folic Acid TAB* 1 MG PO SCH (09:29)
[2018-10-02] MEDS: Cetirizine* 10 MG TAB PO SCH (09:30)
[2018-10-02] MEDS: Magnesium Oxide TAB* 400 MG PO SCH (09:30)
[2018-10-02] MEDS: Cyanocobalamin TAB* 500 MCG PO SCH (09:30)
[2018-10-02] MEDS: Thiamine TAB* 100 MG TAB PO SCH (09:30)
[2018-10-02] MEDS: predniSONE TAB* 1 MG PO SCH (09:30)
[2018-10-02] MEDS: Metoprolol Succinate XL TAB* 50 MG PO SCH (09:30)
--- NOTE | 2018-10-02 13:48 | PN ---
Subjective Date of Service: 10/02/18 Interval History: Pleasant and communicative.Mild dementia Objective Active Medications: Acetaminophen (Tylenol Tab*) 650 mg PO Q4H PRN PRN Reason: FEVER/PAIN Last Admin: 09/30/18 20:29 Dose: 650 mg Aspirin (Aspirin Ec Tab*) 81 mg PO [facility] Last Admin: 10/02/18 09:29 Dose: 81 mg Atorvastatin Calcium (Lipitor*) 20 mg PO BEDTIME [facility]; Protocol Last Admin: 10/02/18 01:23 Dose: 20 mg Bupropion HCl (Bupropion Xl*) 300 mg PO BEDTIME [facility] Last Admin: 10/02/18 01:21 Dose: 300 mg Cetirizine HCl (Zyrtec*) 10 mg PO [facility] Last Admin: 10/02/18 09:30 Dose: 10 mg Cyanocobalamin (Vitamin B12 Tab*) 1,000 mcg PO [facility] Last Admin: 10/02/18 09:30 Dose: 1,000 mcg Folic Acid (Folvite Tab*) 1 mg PO [facility] Last Admin: 10/02/18 09:29 Dose: 1 mg Haloperidol Lactate (Haldol Inj Iv/Im*) 4 mg IM ONCE PRN PRN Reason: AGITATION Stop: 10/02/18 19:21 Last Admin: 10/01/18 19:28 Dose: 4 mg Heparin Sodium (Porcine) (Heparin Vial(*)) 5,000 units SUBCUT Q8HR [facility] Last Admin: 10/02/18 05:27 Dose: Not Given Magnesium Oxide (Magox 400 Tab*) 400 mg PO [facility] Last Admin: 10/02/18 09:30 Dose: 400 mg Metformin HCl (Glucophage*) 1,000 mg PO BID [facility] Last Admin: 10/02/18 09:30 Dose: 1,000 mg Methotrexate (Methotrexate Tab*) 5 mg PO Q7D [facility] Metoprolol Succinate (Toprol Xl Tab*) 50 mg PO [facility] Last Admin: 10/02/18 09:30 Dose: 50 mg Miscellaneous (Ativan Pyxis Layne) 1 ea N/A .ATIVAN IV LAYNE PRN PRN Reason: PYXIS LAYNE Ondansetron HCl (Zofran Inj*) 4 mg IV Q4H PRN PRN Reason: NAUSEA/VOMITING Prednisone (Deltasone Tab*) 2 mg PO QAM [facility] Last Admin: 10/02/18 09:30 Dose: 2 mg Repaglinide (Prandin Tab*) 0.5 mg PO BEDTIME [facility] Last Admin: 10/02/18 01:23 Dose: 0.5 mg Sertraline HCl (Zoloft*) 50 mg PO BEDTIME [facility] Last Admin: 10/02/18 01:22 Dose: 50 mg Thiamine HCl (Vitamin B-1 Tab*) 100 mg PO QAM [facility] Last Admin: 10/02/18 09:30 Dose: 100 mg Vital Signs - 8 hr 10/02/18 08:00 Respiratory 18 Rate Oxygen Devices in Use Now: None Eyes: No Scleral Icterus Ears/Nose/Mouth/Throat: NL Teeth, Lips, Gums Neck: NL Appearance and Movements; NL JVP Respiratory: Symmetrical Chest Expansion and Respiratory Effort Cardiovascular: NL Sounds; No Murmurs; No JVD Abdominal: NL Sounds; No Tenderness; No Distention Extremities: No Edema Skin: No Rash or Ulcers Neurological: Alert and Oriented x 3, - - upper visual field compromised. some difficulty tracking movement upwards Result Diagrams: 09/30/18 11:27 09/30/18 11:27 Assess/Plan/Problems-Billing Assessment: 82 yo M h/o progressive neurological decline pw after fall with change in mental status - Patient Problems (1) Progressive supranuclear palsy Current Visit: Yes Status: Acute Code(s): G23.1 - PROGRESSIVE SUPRANUCLEAR OPHTHALMOPLEGIA SNOMED Code(s): 956935423 Comment: appreciate neurology assistance PT will need assistance with placement (2) History of temporal arteritis Current Visit: Yes Status: Acute Code(s): Z87.39 - PERSONAL HISTORY OF DISEASES OF THE MS SYS AND CONN TISS SNOMED Code(s): 376270848 Comment: prednisone (3) Concussion Current Visit: Yes Status: Acute Code(s): S06.0X9A - CONCUSSION W LOSS OF CONSCIOUSNESS OF UNSP DURATION, INIT SNOMED Code(s): 657220560 Comment: monitor (4) Diabetes Current Visit: Yes Status: Acute Priority: High Code(s): E11.9 - TYPE 2 DIABETES MELLITUS WITHOUT COMPLICATIONS SNOMED Code(s): 15468102 Comment: prandin metformin (5) DVT prophylaxis Current Visit: Yes Status: Acute Code(s): Z29.9 - ENCOUNTER FOR PROPHYLACTIC MEASURES, UNSPECIFIED SNOMED Code(s): 937898310 Comment: HSQ (6) Hypertension Current Visit: Yes Status: Acute Code(s): I10 - ESSENTIAL (PRIMARY) HYPERTENSION SNOMED Code(s): 44691101 Comment: metoprolol
--- NOTE | 2018-10-02 15:23 | CONS ---
NEUROLOGY CONSULT FOLLOWUP: DATE OF FOLLOWUP: 10/02/18 LOCATION: He is an inpatient in room 402. HOSPITALIST: Dr. Gonsales. CHIEF COMPLAINT: Falls, dementia. INTERVAL HISTORY: Since yesterday, Logan had a bad night. He was quite agitated and ultimately ended up getting some Haldol. Today, he is pleasantly demented and has no complaints. He does not recall any details from yesterday. MEDICATIONS: Reviewed and he is on: 1. Aspirin 81 mg p.o. q. day. 2. Atorvastatin 20 mg p.o. q. day. 3. Bupropion 300 mg p.o. q.h.s. 4. Folic acid 1 mg p.o. q. day. 5. Haldol 4 mg IM once for agitation last night. 6. Heparin 5000 units subcutaneous q.8 hours. 7. Magnesium oxide 400 mg p.o. q. day. 8. Metformin 1000 mg p.o. b.i.d. 9. Metoprolol-XL 50 mg p.o. q. day. 10. Zofran 4 mg IV q.4 hours as needed for vomiting. 11. Prednisone 10 mg p.o. q.a.m. 12. Prandin 0.5 mg p.o. q.h.s. 13. Thiamine 100 mg p.o. q.a.m. PHYSICAL EXAM: On examination, he is well nourished and well hydrated. He had a temperature of 100.1 last night, but this morning 97.8. Blood pressure 157/48 , heart rate in the 80s and regular. Respiratory rate is 18 and oxygen saturation is 96% on room air. Neurologically, there is mild cogwheel rigidity of the right arm. There is no tremor. Strength is normal. He is alert and disoriented. He speaks tangentially about different topics. He has asked again about our music syllabus. Language is fluent, but he loses his train of thought very frequently. DIAGNOSTIC STUDIES/LAB DATA: Laboratory data notable for MRI of the brain from yesterday, which reveals atrophy. I reviewed it and I do not see specific midbrain atrophy compared to prior studies, but there is generalized atrophy. IMPRESSION AND PLAN: Impression is that of possible progressive supranuclear palsy. I explained my impression to Logan and his and daughter who are present. I explained there is a progressive neurodegenerative condition, which has features of parkinsonism as well as dementia. I explained of the sleep orders and often visual problems and emotional incontinence. There is no specific therapy. I discussed with his separately that he probably needs to be considered for a supervised living arrangement, possibly assisted living. He is at fall risk. Cholinesterase inhibitors could be considered for his cognitive problems, but again there are no specific therapies for his condition. He can follow up with Dr. Keane as an outpatient. [id number]/[facility] #: [id number] [facility]
[2018-10-02] MEDS ORDERED: Haloperidol INJ IV/IM* 5 MG/ML AMP IM PRN (19:35)
[2018-10-02] MEDS ORDERED: Lorazepam PYXIS KEY PRN (19:36)
[2018-10-02] MEDS ORDERED: LORazepam INJ* 2 MG/ML 1 ML VIAL IV PUSH PRN (19:36)
[2018-10-02] MEDS ORDERED: QUEtiapine TAB* 25 MG PO SCH (21:00)
[2018-10-03] MEDS: Heparin VIAL(*) 5000 UNITS/ML VIAL (FIVE THOUSAND) SUBCUT SCH ×3 (05:28→20:06)
[2018-10-03 06:31] LABS: ABS Eosinophils 0.3 10^3/ul (0-0.6); ABS Lymphocytes 1.2 10^3/ul (1.0-4.8); ABS Monocytes 0.9 10^3/ul (0-0.8); ABS Neutrophils 4.1 10^3/ul (1.5-7.7); Hematocrit 41 % (42-52); Hemoglobin 13.6 g/dL (14.0-18.0); Lymphocyte % 18.2 %; Mean Corpuscular HGB Conc 34 g/dL (31-36); Mean Corpuscular Hemoglobin 31 pg (27-31); Mean Corpuscular Volume 94 fL (80-94); Platelet Count 221 10^3/uL (150-450); Red Blood Count 4.35 10^6 /uL (4.18-5.48); Red Cell Distribution Width 14 % (10.5-15); White Blood Count 6.4 10^3/uL (3.5-10.8)
[2018-10-03 06:49] LABS: BUN/Creatinine Ratio 21.1 (8-20); Calcium 9.1 mg/dL (8.6-10.3); EGFR African American 65.4 (>60); EGFR Non-African American 54.1 (>60); Potassium 4.3 mmol/L (3.5-5.0)
[2018-10-03] MEDS: predniSONE TAB* 1 MG PO SCH (08:41)
[2018-10-03] MEDS: Cyanocobalamin TAB* 500 MCG PO SCH (08:41)
[2018-10-03] MEDS: Aspirin EC TAB* 81 MG TAB.EC PO SCH (08:41)
[2018-10-03] MEDS: Magnesium Oxide TAB* 400 MG PO SCH (08:41)
[2018-10-03] MEDS: metFORMIN* 1,000 MG TAB PO SCH ×2 (08:41→20:05)
[2018-10-03] MEDS: Metoprolol Succinate XL TAB* 50 MG PO SCH (08:41)
[2018-10-03] MEDS: Thiamine TAB* 100 MG TAB PO SCH (08:42)
[2018-10-03] MEDS: Folic Acid TAB* 1 MG PO SCH (08:42)
[2018-10-03] MEDS: Cetirizine* 10 MG TAB PO SCH (08:42)
[2018-10-03] MEDS ORDERED: Bisacodyl EC TAB* 5 MG PO ONE (12:50)
[2018-10-03] MEDS ORDERED: Bisacodyl EC TAB* 5 MG PO PRN (12:51)
--- NOTE | 2018-10-03 15:47 | PN ---
Subjective Date of Service: 10/03/18 Interval History: Per d/w nursing, pt agitated last night despite receiving seroquel which was attempted.Finally needed ativan and haldol and responded well to ativan.This morning pt alert calm reading newspaper and answering all questions appropriately and does not have a good recollection of overnight events Objective Active Medications: Acetaminophen (Tylenol Tab*) 650 mg PO Q4H PRN PRN Reason: FEVER/PAIN Last Admin: 09/30/18 20:29 Dose: 650 mg Aspirin (Aspirin Ec Tab*) 81 mg PO QAWW [facility] Last Admin: 10/03/18 08:41 Dose: 81 mg Atorvastatin Calcium (Lipitor*) 20 mg PO BEDTIME [facility]; Protocol Last Admin: 10/02/18 20:32 Dose: 20 mg Bisacodyl (Dulcolax Ec Tab*) 5 mg PO DAILY PRN PRN Reason: CONSTIPATION Bupropion HCl (Bupropion Xl*) 300 mg PO BEDTIME [facility] Last Admin: 10/02/18 20:34 Dose: 300 mg Cetirizine HCl (Zyrtec*) 10 mg PO QAWW [facility] Last Admin: 10/03/18 08:42 Dose: 10 mg Cyanocobalamin (Vitamin B12 Tab*) 1,000 mcg PO QAWW [facility] Last Admin: 10/03/18 08:41 Dose: 1,000 mcg Folic Acid (Folvite Tab*) 1 mg PO QAWW [facility] Last Admin: 10/03/18 08:42 Dose: 1 mg Heparin Sodium (Porcine) (Heparin Vial(*)) 5,000 units SUBCUT Q8HR [facility] Last Admin: 10/03/18 14:10 Dose: 5,000 units Lorazepam (Ativan Tab(*)) 1 mg PO ONCE [facility] Magnesium Oxide (Magox 400 Tab*) 400 mg PO QAM [facility] Last Admin: 10/03/18 08:41 Dose: 400 mg Metformin HCl (Glucophage*) 1,000 mg PO BID [facility] Last Admin: 10/03/18 08:41 Dose: 1,000 mg Methotrexate (Methotrexate Tab*) 5 mg PO Q7D [facility] Metoprolol Succinate (Toprol Xl Tab*) 50 mg PO QAWW [facility] Last Admin: 10/03/18 08:41 Dose: 50 mg Miscellaneous (Ativan Pyxis Layne) 1 ea N/A .ATIVAN IV LAYNE PRN PRN Reason: PYXIS LAYNE Ondansetron HCl (Zofran Inj*) 4 mg IV Q4H PRN PRN Reason: NAUSEA/VOMITING Prednisone (Deltasone Tab*) 2 mg PO QAWW [facility] Last Admin: 10/03/18 08:41 Dose: 2 mg Repaglinide (Prandin Tab*) 0.5 mg PO BEDTIME [facility] Last Admin: 10/02/18 20:34 Dose: 0.5 mg Sertraline HCl (Zoloft*) 50 mg PO BEDTIME [facility] Last Admin: 10/02/18 20:34 Dose: 50 mg Thiamine HCl (Vitamin B-1 Tab*) 100 mg PO QAM [facility] Last Admin: 10/03/18 08:42 Dose: 100 mg Vital Signs - 8 hr 10/03/18 10/03/18 08:00 15:15 Temperature 97.3 F Pulse Rate 85 Respiratory 17 16 Rate Blood Pressure 148/75 (mmHg) O2 Sat by Pulse 96 Oximetry Oxygen Devices in Use Now: None Eyes: No Scleral Icterus Ears/Nose/Mouth/Throat: NL Teeth, Lips, Gums Neck: NL Appearance and Movements; NL JVP Respiratory: Symmetrical Chest Expansion and Respiratory Effort, Clear to Auscultation Cardiovascular: NL Sounds; No Murmurs; No JVD Abdominal: NL Sounds; No Tenderness; No Distention Skin: No Rash or Ulcers Neurological: Alert and Oriented x 3 Result Diagrams: 10/03/18 06:00 10/03/18 06:00 Assess/Plan/Problems-Billing Assessment: 82 yo M h/o progressive neurological decline pw after fall with change in mental status - Patient Problems (1) Progressive supranuclear palsy Current Visit: Yes Status: Acute Code(s): G23.1 - PROGRESSIVE SUPRANUCLEAR OPHTHALMOPLEGIA SNOMED Code(s): 492972888 Comment: appreciate neurology assistance Working with PT will need assistance with placement (2) History of temporal arteritis Current Visit: Yes Status: Acute Code(s): Z87.39 - PERSONAL HISTORY OF DISEASES OF THE MS SYS AND CONN TISS SNOMED Code(s): 019717240 Comment: prednisone low dose (3) Concussion Current Visit: Yes Status: Acute Code(s): S06.0X9A - CONCUSSION W LOSS OF CONSCIOUSNESS OF UNSP DURATION, INIT SNOMED Code(s): 169587137 Comment: monitor (4) Diabetes Current Visit: Yes Status: Acute Priority: High Code(s): E11.9 - TYPE 2 DIABETES MELLITUS WITHOUT COMPLICATIONS SNOMED Code(s): 04009870 Comment: prandin metformin (5) DVT prophylaxis Current Visit: Yes Status: Acute Code(s): Z29.9 - ENCOUNTER FOR PROPHYLACTIC MEASURES, UNSPECIFIED SNOMED Code(s): 950562104 Comment: HSQ (6) Hypertension Current Visit: Yes Status: Acute Code(s): I10 - ESSENTIAL (PRIMARY) HYPERTENSION SNOMED Code(s): 95621634 Comment: metoprolol (7) Delirium due to another medical condition Current Visit: Yes Status: Acute Code(s): F05 - DELIRIUM DUE TO KNOWN PHYSIOLOGICAL CONDITION SNOMED Code(s): 7641426 Comment: Delirium and sun downing Also in the setting of supranuclear palsy with some hallucination overnight Will need to avoid polypharmacy which can make things worse Will stop seroquel and attempt 1 mg po ativan tonight as this worked for the patient yesterday and helped him sleep Will need to check with family if he has been on buproprion for a while and cetrizine and if these are new meds Ativan can cause confusion also but pt seems to be doing well with it at night.Will attempt one dose tonight and evaluate
[2018-10-03] MEDS: Sertraline* 50 MG TAB PO SCH (20:05)
[2018-10-03] MEDS: BuPROPion XL* 300 MG TAB.XL PO SCH (20:05)
[2018-10-03] MEDS: Repaglinide TAB* 0.5 MG PO SCH (20:05)
[2018-10-03] MEDS: Atorvastatin* 20 MG TAB PO SCH (20:05)
[2018-10-03] MEDS ORDERED: LORazepam TAB(*) 1 MG PO ONE (21:00)
[2018-10-04] MEDS: Acetaminophen TAB* 325 MG PO PRN (03:02)
[2018-10-04] MEDS: Heparin VIAL(*) 5000 UNITS/ML VIAL (FIVE THOUSAND) SUBCUT SCH ×3 (04:39→21:10)
[2018-10-04 06:23] LABS: ABS Eosinophils 0.2 10^3/ul (0-0.6); ABS Lymphocytes 1.2 10^3/ul (1.0-4.8); ABS Neutrophils 4.6 10^3/ul (1.5-7.7); Eosinophil % 3.2 %; Hematocrit 41 % (42-52); Hemoglobin 13.6 g/dL (14.0-18.0); Lymphocyte % 16.8 %; Mean Corpuscular HGB Conc 34 g/dL (31-36); Mean Corpuscular Hemoglobin 31 pg (27-31); Mean Corpuscular Volume 93 fL (80-94); Platelet Count 231 10^3/uL (150-450); Red Blood Count 4.36 10^6 /uL (4.18-5.48); Red Cell Distribution Width 14 % (10.5-15); White Blood Count 7.1 10^3/uL (3.5-10.8)
[2018-10-04 06:37] LABS: BUN/Creatinine Ratio 22.2 (8-20); EGFR African American 66.6 (>60); EGFR Non-African American 55.1 (>60); Potassium 4.1 mmol/L (3.5-5.0)
[2018-10-04] MEDS: metFORMIN* 1,000 MG TAB PO SCH ×2 (08:38→21:09)
[2018-10-04] MEDS: Metoprolol Succinate XL TAB* 50 MG PO SCH (08:38)
[2018-10-04] MEDS: Aspirin EC TAB* 81 MG TAB.EC PO SCH (08:38)
[2018-10-04] MEDS: Cetirizine* 10 MG TAB PO SCH (08:38)
[2018-10-04] MEDS: Folic Acid TAB* 1 MG PO SCH (08:38)
[2018-10-04] MEDS: predniSONE TAB* 1 MG PO SCH (08:38)
[2018-10-04] MEDS: Cyanocobalamin TAB* 500 MCG PO SCH (08:38)
[2018-10-04] MEDS: Magnesium Oxide TAB* 400 MG PO SCH (08:39)
[2018-10-04] MEDS: Thiamine TAB* 100 MG TAB PO SCH (08:39)
[2018-10-04] MEDS ORDERED: Methotrexate TAB* 2.5 MG PO SCH (09:00)
--- NOTE | 2018-10-04 14:10 | PN ---
Subjective Date of Service: 10/04/18 Interval History: Patient is in good spirits, patient is pleasantly confused, talking about his job and plans for going back to work. Patient remembers his falls but doesn't think they were very bad. Patient denies F/C, N/V, abdominal pain, dysuria, dizziness, CP, SOB, or other pain. Family History: Unchanged from Admission Social History: Unchanged from Admission Past Medical History: Unchanged from Admission Objective Active Medications: Acetaminophen (Tylenol Tab*) 650 mg PO Q4H PRN PRN Reason: FEVER/PAIN Last Admin: 10/04/18 03:02 Dose: 650 mg Aspirin (Aspirin Ec Tab*) 81 mg PO [facility] Last Admin: 10/04/18 08:38 Dose: 81 mg Atorvastatin Calcium (Lipitor*) 20 mg PO BEDTIME [facility]; Protocol Last Admin: 10/03/18 20:05 Dose: 20 mg Bisacodyl (Dulcolax Ec Tab*) 5 mg PO DAILY PRN PRN Reason: CONSTIPATION Bupropion HCl (Bupropion Xl*) 300 mg PO BEDTIME [facility] Last Admin: 10/03/18 20:05 Dose: 300 mg Cetirizine HCl (Zyrtec*) 10 mg PO [facility] Last Admin: 10/04/18 08:38 Dose: 10 mg Cyanocobalamin (Vitamin B12 Tab*) [facility] Last Admin: 10/04/18 08:38 Dose: 1,000 mcg Folic Acid (Folvite Tab*) [facility] Last Admin: 10/04/18 08:38 Dose: 1 mg Heparin Sodium (Porcine) (Heparin Vial(*)) 5,000 units SUBCUT Q8HR [facility] Last Admin: 10/04/18 13:38 Dose: 5,000 units Magnesium Oxide (Magox 400 Tab*) [facility] Last Admin: 10/04/18 08:39 Dose: 400 mg Metformin HCl (Glucophage*) 1,000 mg PO BID [facility] Last Admin: 10/04/18 08:38 Dose: 1,000 mg Methotrexate (Methotrexate Tab*) 5 mg PO Q7D [facility] Last Admin: 10/04/18 08:38 Dose: 5 mg Metoprolol Succinate (Toprol Xl Tab*) [facility] Last Admin: 10/04/18 08:38 Dose: 50 mg Miscellaneous (Ativan Pyxis Layne) 1 ea N/A .ATIVAN IV LAYNE PRN PRN Reason: PYXIS LAYNE Ondansetron HCl (Zofran Inj*) 4 mg IV Q4H PRN PRN Reason: NAUSEA/VOMITING Prednisone (Deltasone Tab*) 2 mg PO QAM [facility] Last Admin: 10/04/18 08:38 Dose: 2 mg Repaglinide (Prandin Tab*) 0.5 mg PO BEDTIME [facility] Last Admin: 10/03/18 20:05 Dose: 0.5 mg Sertraline HCl (Zoloft*) 50 mg PO BEDTIME [facility] Last Admin: 10/03/18 20:05 Dose: 50 mg Thiamine HCl (Vitamin B-1 Tab*) 100 mg PO QAM [facility] Last Admin: 10/04/18 08:39 Dose: 100 mg Vital Signs - 8 hr 10/04/18 10/04/18 07:20 08:00 Temperature 97.4 F Pulse Rate 75 Respiratory 16 16 Rate Blood Pressure 155/85 (mmHg) O2 Sat by Pulse 95 Oximetry Oxygen Devices in Use Now: None Appearance: Patient is an 82yo male who appears stated age and is sitting in the bed in [facility]. Eyes: No Scleral Icterus, PERRLA Ears/Nose/Mouth/Throat: NL Teeth, Lips, Gums, Clear Oropharnyx, Mucous Membranes Moist Neck: NL Appearance and Movements; NL JVP, Trachea Midline Respiratory: Symmetrical Chest Expansion and Respiratory Effort, Clear to Auscultation Cardiovascular: NL Sounds; No Murmurs; No JVD, RRR, No Edema Abdominal: NL Sounds; No Tenderness; No Distention, No Hepatosplenomegaly Lymphatic: No Cervical Adenopathy Extremities: No Clubbing, Cyanosis Skin: No Rash or Ulcers, No Nodules or Sclerosis Neurological: Alert and Oriented x 3, NL Gait, - - High frequency tremor in RUE. Result Diagrams: 10/04/18 06:12 10/04/18 06:12 Assess/Plan/Problems-Billing Assessment: 82 yo M h/o progressive neurological decline pw after fall with change in mental status and was found to have concerns for PSP. - Patient Problems (1) Delirium due to another medical condition Current Visit: Yes Status: Acute Code(s): F05 - DELIRIUM DUE TO KNOWN PHYSIOLOGICAL CONDITION SNOMED Code(s): 2651762 Comment: - Delirium and sun downing - Also in the setting of supranuclear palsy with some hallucination overnight - Will need to avoid polypharmacy which can make things worse - Continue only ativan. (2) Concussion Current Visit: Yes Status: Acute Code(s): S06.0X9A - CONCUSSION W LOSS OF CONSCIOUSNESS OF UNSP DURATION, INIT SNOMED Code(s): 012939227 Comment: - Due to Fall, Continue to monitor (3) Diabetes Current Visit: Yes Status: Acute Priority: High Code(s): E11.9 - TYPE 2 DIABETES MELLITUS WITHOUT COMPLICATIONS SNOMED Code(s): 67568987 Comment: - Prandin - Metformin (4) History of temporal arteritis Current Visit: Yes Status: Acute Code(s): Z87.39 - PERSONAL HISTORY OF DISEASES OF THE MS SYS AND CONN TISS SNOMED Code(s): 615610828 Comment: - Continue Prednisone low dose (5) Hypertension Current Visit: Yes Status: Acute Code(s): I10 - ESSENTIAL (PRIMARY) HYPERTENSION SNOMED Code(s): 04377942 Comment: - Normoactive - Continue Metoprolol (6) Progressive supranuclear palsy Current Visit: Yes Status: Acute Code(s): G23.1 - PROGRESSIVE SUPRANUCLEAR OPHTHALMOPLEGIA SNOMED Code(s): 592943513 Comment: - Appreciate neurology assistance - Working with PT - Will need assistance with placement (7) DVT prophylaxis Current Visit: Yes Status: Acute Code(s): Z29.9 - ENCOUNTER FOR PROPHYLACTIC MEASURES, UNSPECIFIED SNOMED Code(s): 304389628 Comment: - HSQ Status and Disposition: Inpatient, Placement tomorrow.
[2018-10-04] MEDS ORDERED: LORazepam INJ* 2 MG/ML 1 ML VIAL IV PUSH PRN (18:43)
[2018-10-04] MEDS ORDERED: Lorazepam PYXIS KEY PRN (18:43)
[2018-10-04] MEDS: Sertraline* 50 MG TAB PO SCH (21:09)
[2018-10-04] MEDS: Atorvastatin* 20 MG TAB PO SCH (21:09)
[2018-10-04] MEDS: BuPROPion XL* 300 MG TAB.XL PO SCH (21:09)
[2018-10-04] MEDS: Repaglinide TAB* 0.5 MG PO SCH (21:10)
[2018-10-05] MEDS ORDERED: Haloperidol INJ IV/IM* 5 MG/ML AMP IV SLOW PU PRN (00:07)
[2018-10-05] MEDS: Heparin VIAL(*) 5000 UNITS/ML VIAL (FIVE THOUSAND) SUBCUT SCH ×3 (05:27→20:51)
[2018-10-05] MEDS: Magnesium Oxide TAB* 400 MG PO SCH (09:00)
[2018-10-05] MEDS: Metoprolol Succinate XL TAB* 50 MG PO SCH (09:00)
[2018-10-05] MEDS: predniSONE TAB* 1 MG PO SCH (09:01)
[2018-10-05] MEDS: Aspirin EC TAB* 81 MG TAB.EC PO SCH (09:01)
[2018-10-05] MEDS: Cyanocobalamin TAB* 500 MCG PO SCH (09:01)
[2018-10-05] MEDS: Thiamine TAB* 100 MG TAB PO SCH (09:01)
[2018-10-05] MEDS: Folic Acid TAB* 1 MG PO SCH (09:01)
[2018-10-05] MEDS: metFORMIN* 1,000 MG TAB PO SCH ×2 (09:01→20:49)
[2018-10-05] MEDS: Cetirizine* 10 MG TAB PO SCH (09:01)
[2018-10-05] MEDS ORDERED: clonazePAM TAB(*) 1 MG PO PRN (12:28)
[2018-10-05] MEDS: amLODIPine TAB* 5 MG PO SCH (12:59)
--- NOTE | 2018-10-05 13:48 | PN ---
Subjective Date of Service: 10/05/18 Interval History: Patient is feeling well. Patient is less oriented to his surroundings and clinical condition today. Patient is fixating on his PMR and how good he feels after that. The says his gait is not good and that he uses his walker poorly and looks like he is going to fall whenever he stands. Patient denies CP , SOB, F/C, N/V, abdominal pain, dysuria, diarrhea, constipation, or other pain. Family History: Unchanged from Admission Social History: Unchanged from Admission Past Medical History: Unchanged from Admission Objective Active Medications: Acetaminophen (Tylenol Tab*) 650 mg PO Q4H PRN PRN Reason: FEVER/PAIN Last Admin: 10/04/18 03:02 Dose: 650 mg Amlodipine Besylate (Norvasc Tab*) 5 mg PO DAILY [facility] Last Admin: 10/05/18 12:59 Dose: 5 mg Aspirin ([facility]in Ec Tab*) [facility] Last Admin: 10/05/18 09:01 Dose: 81 mg Atorvastatin Calcium (Lipitor*) 20 mg PO BEDTIME [facility]; Protocol Last Admin: 10/04/18 21:09 Dose: 20 mg Bisacodyl (Dulcolax Ec Tab*) 5 mg PO DAILY PRN PRN Reason: CONSTIPATION Bupropion HCl (Bupropion Xl*) 300 mg PO BEDTIME [facility] Last Admin: 10/04/18 21:09 Dose: 300 mg Cetirizine HCl (Zyrtec*) [facility] Last Admin: 10/05/18 09:01 Dose: 10 mg Clonazepam (Klonopin Tab(*)) 1 mg PO BEDTIME PRN PRN Reason: Agitation Cyanocobalamin (Vitamin B12 Tab*) 1,000 mcg PO QAM [facility] Last Admin: 10/05/18 09:01 Dose: 1,000 mcg Folic Acid (Folvite Tab*) [facility] Last Admin: 10/05/18 09:01 Dose: 1 mg Heparin Sodium (Porcine) (Heparin Vial(*)) 5,000 units SUBCUT Q8HR [facility] Last Admin: 10/05/18 12:59 Dose: 5,000 units Magnesium Oxide (Magox 400 Tab*) 400 [facility] Last Admin: 10/05/18 09:00 Dose: 400 mg Metformin HCl (Glucophage*) 1,000 mg PO BID [facility] Last Admin: 10/05/18 09:01 Dose: 1,000 mg Methotrexate (Methotrexate Tab*) 5 mg PO Q7D [facility] Last Admin: 10/04/18 08:38 Dose: 5 mg Metoprolol Succinate (Toprol Xl Tab*) 50 mg PO QAM [facility] Last Admin: 10/05/18 09:00 Dose: 50 mg Miscellaneous (Ativan Pyxis Layne) 1 ea N/A .ATIVAN IV LAYNE PRN PRN Reason: PYXIS LAYNE Miscellaneous (Ativan Pyxis Layne) 1 ea N/A .ATIVAN IV LAYNE PRN PRN Reason: PYXIS LAYNE Ondansetron HCl (Zofran Inj*) 4 mg IV Q4H PRN PRN Reason: NAUSEA/VOMITING Prednisone (Deltasone Tab*) 2 mg PO QAM [facility] Last Admin: 10/05/18 09:01 Dose: 2 mg Repaglinide (Prandin Tab*) 0.5 mg PO BEDTIME [facility] Last Admin: 10/04/18 21:10 Dose: 0.5 mg Sertraline HCl (Zoloft*) 50 mg PO BEDTIME [facility] Last Admin: 10/04/18 21:09 Dose: 50 mg Thiamine HCl (Vitamin B-1 Tab*) 100 mg PO [facility] Last Admin: 10/05/18 09:01 Dose: 100 mg Trazodone HCl (Desyrel Tab*) 25 mg PO BEDTIME [facility] Vital Signs - 8 hr 10/05/18 10/05/18 10/05/18 07:35 08:00 11:18 Temperature 97.9 F 98.4 F Pulse Rate 75 78 Respiratory 18 16 16 Rate Blood Pressure 172/92 148/75 (mmHg) O2 Sat by Pulse 98 95 Oximetry Oxygen Devices in Use Now: None Appearance: Patient is an 82yo male who appears stated age and is sitting in the bed in [facility]. Eyes: No Scleral Icterus, PERRLA Ears/Nose/Mouth/Throat: NL Teeth, Lips, Gums, Clear Oropharnyx, Mucous Membranes Moist Neck: NL Appearance and Movements; NL JVP, Trachea Midline Respiratory: Symmetrical Chest Expansion and Respiratory Effort, Clear to Auscultation Cardiovascular: RRR, No Edema Abdominal: NL Sounds; No Tenderness; No Distention, No Hepatosplenomegaly Lymphatic: No Cervical Adenopathy Extremities: No Edema, No Clubbing, Cyanosis Skin: No Rash or Ulcers, No Nodules or Sclerosis Neurological: NL Sensation, NL Muscle Strength and Tone, - - Rigth Hand Tremor. Result Diagrams: 10/04/18 06:12 10/04/18 06:12 Assess/Plan/Problems-Billing Assessment: 82 yo M h/o progressive neurological decline pw after fall with change in mental status and was found to have concerns for PSP. - Patient Problems (1) Delirium due to another medical condition Current Visit: Yes Status: Acute Code(s): F05 - DELIRIUM DUE TO KNOWN PHYSIOLOGICAL CONDITION SNOMED Code(s): 9412630 Comment: - Delirium and sun downing - Also in the setting of supranuclear palsy with some hallucination overnight - Will need to avoid polypharmacy which can make things worse - Continue ativan and Trazodone. Given PSP, patient is at high risk of sudden cardiac from antipsychotics (2) Concussion Current Visit: Yes Status: Acute Code(s): S06.0X9A - CONCUSSION W LOSS OF CONSCIOUSNESS OF UNSP DURATION, INIT SNOMED Code(s): 850387933 Comment: - Due to Fall, Continue to monitor - Possibly contributing to patient's general neurological deficits. (3) Diabetes Current Visit: Yes Status: Acute Priority: High Code(s): E11.9 - TYPE 2 DIABETES MELLITUS WITHOUT COMPLICATIONS SNOMED Code(s): 39174149 Comment: - Prandin - Metformin (4) History of temporal arteritis Current Visit: Yes Status: Acute Code(s): Z87.39 - PERSONAL HISTORY OF DISEASES OF THE MS SYS AND CONN TISS SNOMED Code(s): 972896800 Comment: - Continue Prednisone low dose, taper per Discussion with rheumatology - Continue Metotrexate. - Update Inflammatory Markers. (5) Hypertension Current Visit: Yes Status: Acute Code(s): I10 - ESSENTIAL (PRIMARY) HYPERTENSION SNOMED Code(s): 16089868 Comment: - Normoactive - Continue Metoprolol (6) Progressive supranuclear palsy Current Visit: Yes Status: Acute Code(s): G23.1 - PROGRESSIVE SUPRANUCLEAR OPHTHALMOPLEGIA SNOMED Code(s): 532065847 Comment: - Appreciate neurology assistance - Working with PT - Will need assistance with placement (7) DVT prophylaxis Current Visit: Yes Status: Acute Code(s): Z29.9 - ENCOUNTER FOR PROPHYLACTIC MEASURES, UNSPECIFIED SNOMED Code(s): 617686106 Comment: - HSQ Status and Disposition: Inpatient, Placement when available.
[2018-10-05 14:33] LABS: C Reactive Protein 18.43 mg/L (<8.01)
[2018-10-05] MEDS: BuPROPion XL* 300 MG TAB.XL PO SCH (20:45)
[2018-10-05] MEDS: Repaglinide TAB* 0.5 MG PO SCH (20:50)
[2018-10-05] MEDS: Atorvastatin* 20 MG TAB PO SCH (20:50)
[2018-10-05] MEDS: Sertraline* 50 MG TAB PO SCH (20:50)
[2018-10-05] MEDS ORDERED: traZODone TAB* 50 MG TAB PO SCH (21:00)
[2018-10-06] MEDS: Heparin VIAL(*) 5000 UNITS/ML VIAL (FIVE THOUSAND) SUBCUT SCH ×2 (05:03→13:59)
[2018-10-06 06:53] LABS: ABS Eosinophils 0.2 10^3/ul (0-0.6); ABS Lymphocytes 1.1 10^3/ul (1.0-4.8); ABS Monocytes 1.2 10^3/ul (0-0.8); Eosinophil % 3.1 %; Hematocrit 41 % (42-52); Hemoglobin 13.9 g/dL (14.0-18.0); Lymphocyte % 14.5 %; Mean Corpuscular HGB Conc 34 g/dL (31-36); Mean Corpuscular Hemoglobin 31 pg (27-31); Mean Corpuscular Volume 93 fL (80-94); Mean Platelet Volume 7.2 fL (7.4-10.4); Platelet Count 257 10^3/uL (150-450); Red Blood Count 4.44 10^6 /uL (4.18-5.48); Red Cell Distribution Width 14 % (10.5-15); White Blood Count 7.6 10^3/uL (3.5-10.8)
[2018-10-06 07:04] LABS: BUN/Creatinine Ratio 17.9 (8-20); Calcium 9.7 mg/dL (8.6-10.3); EGFR African American 72.6 (>60); Potassium 4.9 mmol/L (3.5-5.0)
[2018-10-06] MEDS: Folic Acid TAB* 1 MG PO SCH (08:03)
[2018-10-06] MEDS: Cyanocobalamin TAB* 500 MCG PO SCH (08:03)
[2018-10-06] MEDS: Metoprolol Succinate XL TAB* 50 MG PO SCH (08:03)
[2018-10-06] MEDS: Magnesium Oxide TAB* 400 MG PO SCH (08:04)
[2018-10-06] MEDS: Thiamine TAB* 100 MG TAB PO SCH (08:04)
[2018-10-06] MEDS: Aspirin EC TAB* 81 MG TAB.EC PO SCH (08:04)
[2018-10-06] MEDS: Cetirizine* 10 MG TAB PO SCH (08:04)
[2018-10-06] MEDS: amLODIPine TAB* 5 MG PO SCH (08:04)
[2018-10-06] MEDS: metFORMIN* 1,000 MG TAB PO SCH (08:04)
[2018-10-06] MEDS ORDERED: predniSONE TAB* 1 MG PO SCH (09:00)
[2018-10-06 10:16] LABS: Erythrocyte Sed Rate 19 mm/Hr (0-19)
[2018-10-06] MEDS ORDERED: Bisacodyl SUPP* 10 MG SUPP PR ONE (11:40)
[2018-10-06 12:33] VITALS: BP 121/63
--- NOTE | 2018-10-06 14:27 | DS ---
CC: Dr. Alvarenga; Dr. Branch of Rheumatology; Dr. Kevin Keane of Neurology; Dr. Kristen Riley; [facility]; Dr. Karen Welsh, [facility] at [facility].* DISCHARGE SUMMARY: DATE OF ADMISSION: 10/01/18 DATE OF DISCHARGE: 10/06/18 PRIMARY CARE PHYSICIAN: Dr. Alvarenga. MY ATTENDING: Dr. Kristen Riley* (dictated by Sarah Wright, LEANNA). HOSPITAL COURSE: Please refer to admitting H and P dated 09/30/18, but in short , Mr. Romero is an 82-year-old gentleman with a history colon cancer, coronary artery disease, temporal arteritis, and some cognitive decline and/or early dementia who has been followed by Neurology over the past month. The patient's brought the patient to the emergency room for some behavioral disturbance. He was very confused had 1 episode of emesis, had some gait disturbance and imbalance and then finally had a significant fall where he struck his head sustaining a closed head injury. The patient did have some postconcussive syndrome in the form of continued cognitive impairment and some agitated behavior. CT scan of the head was negative for any acute intracranial hemorrhage. MRI of the brain was negative for any pathology as well. He does have some atrophy and findings consistent with moderate chronic small vessel ischemic changes. Given the correlation of his persistent agitation and his follow up with Neurology in the office, Neurology was consulted on this case he was seen by by Dr. Larry Arizmendi. Impression at this time is a progressive supranuclear palsy rather than just a progressive dementia or parkinsonian disease. At this point, supportive therapy and medication management, symptom management in particular for his impulsive behavior and kind of outburst behavior especially at night would be optimal. He is too high risk to be going home. He is a candidate for at least subacute rehab at this time and supervised arrangement. Given his fall prior to his admission he continues to be high risk for falls and other injuries. I did have an extensive discussion with his who understands that given his postconcussive syndrome, which could be also contributing to some of the behavioral changes he is having now, it may take some time for the patient's cognitive baseline to either improve or at least settle up to whatever his new baseline may perhaps be at this time. His is aware that there is a possibility that he will not be able to come home and that this episode may necessitate the patient living in either more permanent nursing environment or having additional care in the home. It should also be noted that the patient did have a dose of Haldol, which may be contraindicated in the setting of supranuclear palsy. He did seem to respond well to low dose of Ativan and trazodone, so we should avoid anti-psychotic medications given this diagnosis. On the day of discharge patient does not have any complaints. He does appear to be confused but he can make his needs known. He is not complaining of any headache, no dizziness. No chest pain. No shortness of breath and no further constitutional complaints. Although, I believe his review of systems is not reliable given his current condition. PHYSICAL EXAM: Physical exam today reveals an elderly male in no acute distress. His vital signs are blood pressure 151/79, heart rate 84, respiratory rate 18, O2 saturation 94% on room air, temperature 98.9. HEENT: The patient is atraumatic, normocephalic. PERRLA, nonicteric sclerae. Oral mucosa is moist. Tongue is midline. Neck is supple, nontender. No JVD. No carotid bruit auscultated. Cardiovascular: S1, S2 present. No murmurs, gallops, or rubs noted. Rate and rhythm are regular. Lungs are clear bilaterally to auscultation with no wheezing rhonchi or rales. Abdomen is soft, nontender, nondistended. Positive bowel sounds in all 4 quadrants. was deferred. Musculoskeletal: There is no clubbing, no cyanosis, no edema. Full range of motion. Gross motor and sensation are intact. Neurologic: Confused at baseline , able to be reoriented at present, has some short- term memory deficit. He has normal sensation, muscle strength, and tone. He does have a very mild essential tremor of the right upper extremity. Psychiatric: He is currently cooperative and appropriate. DIAGNOSTIC STUDIES/LAB DATA: WBCs 7.6, RBCs 4.44, hemoglobin 13.9, hematocrit 41, platelets are 257. Sodium 139, potassium 4.9, chloride 104, CO2 28, BUN 21 , creatinine 1.17, GFR 60, glucose 112, lactic acid 1.6, calcium 9.7. Bilirubin 0.57, AST 16, ALT 13, alk phos 75. Protein 6.2, albumin 4.1, globulin 2.1, vitamin B12 is 509, TSH is 1.39. Urinalysis was negative for any acute infectious process. Reports: CT and MRI of the brain as above noted. Cervical spine CT at admission shows no CT evidence for traumatic spinal injury. DISCHARGE DIAGNOSES: 1. Delirium, likely secondary to possibility of progressive supranuclear palsy. 2. Fall with closed head injury and postconcussive syndrome. 3. Diabetes mellitus type 2, stable. 4. History of temporal arteritis, on steroid taper. 5. Hypertension stable. 6. Acute kidney injury secondary to dehydration, now resolved. 7. History of colon cancer, in remission. MEDICATIONS FOR DISCHARGE: Include: 1. Prandin 0.5 mg at bedtime. 2. Zyrtec 10 mg in the morning. 3. Aspirin 81 mg daily. 4. Mag ox 400 mg in the morning. 5. Folic acid 1 mg p.o. daily. 6. Calcium vitamin D supplement 1 cap daily. 7. Thiamine 100 mg in the morning. 8. Vitamin B12 at 1000 mcg in morning. 9. Vitamin D3 at 2000 units in the morning. 10. Sertraline 50 mg at bedtime. 11. Bupropion 300 mg at bedtime. 12. Crestor 10 mg at bedtime. 13. Metoprolol succinate XL 50 mg in the morning. 14. Methotrexate 5 mg p.o. every 7 days. 15. Prednisone taper now on 1 mg p.o. daily. 16. Trazodone 25 mg at bedtime scheduled. 17. Clonazepam 1 mg p.o. at bedtime as needed for agitation. 18. Metformin 1000 mg p.o. b.i.d. 19. Ativan 0.5 mg b.i.d. as needed for anxiety or agitation. DISPOSITION: The patient has been accepted by [facility]. The patient is discharged by ambulance transport in stable condition. His who is his health care proxy is aware at his discharge and she is in agreement with this discharge plan of care. ACTIVITY: Progress activity as tolerated. DIET: Heart healthy, consistent carbohydrate as tolerated. FOLLOWUP: The patient should follow with Neurology, Dr. Kevin Keane, after discharge from rehab. Should also follow up with his primary care provider Dr. Mildred Alvarenga when discharged from rehab and also with rheumatology Dr. Branch also when discharged from rehab. TIME SPENT: Approximately 45 minutes on discharge plan of care and discussions with the patient's regarding discharge and follow up. SARAH WRIGHT NP [id number]/CPS #: [id number] ALEX
== END 2018-10-06 16:50 | DRG 57 ==
LOC: ED 10:50 → MED 15:59 → OBSVTOIN 10-01 17:47
PROVIDERS: ADMIT Internal Medicine; ATTEND Internal Medicine
DX: G23.1 Progressive supranuclear ophthalmoplegia [Steele-Richardson-Olszewski] (principal); N17.9 Acute kidney failure, unspecified; F07.81 Postconcussional syndrome; W01.10XA Fall on same level from slipping, tripping and stumbling with subsequent striking against unspecified object, initial encounter; I25.10 Atherosclerotic heart disease of native coronary artery without angina pectoris; S00.03XA Contusion of scalp, initial encounter; H53.2 Diplopia; I10 Essential (primary) hypertension; F03.90 Unspecified dementia, unspecified severity, without behavioral disturbance, psychotic disturbance, mood disturbance, and anxiety; M19.042 Primary osteoarthritis, left hand; M19.041 Primary osteoarthritis, right hand; E11.51 Type 2 diabetes mellitus with diabetic peripheral angiopathy without gangrene; G47.30 Sleep apnea, unspecified; M47.812 Spondylosis without myelopathy or radiculopathy, cervical region; T45.1X5A Adverse effect of antineoplastic and immunosuppressive drugs, initial encounter; R40.2412 Glasgow coma scale score 13-15, at arrival to emergency department; M31.6 Other giant cell arteritis; E86.0 Dehydration; M35.3 Polymyalgia rheumatica; F32.9 Major depressive disorder, single episode, unspecified; E11.36 Type 2 diabetes mellitus with diabetic cataract; F41.0 Panic disorder [episodic paroxysmal anxiety]; G62.9 Polyneuropathy, unspecified; Z85.038 Personal history of other malignant neoplasm of large intestine; Z92.21 Personal history of antineoplastic chemotherapy; Y92.9 Unspecified place or not applicable; Z92.3 Personal history of irradiation; Z90.89 Acquired absence of other organs; Z88.8 Allergy status to other drugs, medicaments and biological substances; Z88.2 Allergy status to sulfonamides; Z87.891 Personal history of nicotine dependence; Z97.4 Presence of external hearing-aid; Z83.3 Family history of diabetes mellitus; Z79.82 Long term (current) use of aspirin; Z79.84 Long term (current) use of oral hypoglycemic drugs
CPT/HCPCS: 36415; 70450; 70551; 72125; 80048; 80053; 81003; 82607; 83605; 84443; 85025; 85652; 86140; 90715; 93005; 99284; A9270-GY; G8978-GP-CK; G8978-GP-CL; G8979-GP-CJ; G8987-GO-CK; G8988-GO-CI; J1630; J1644; J2060; J2405; J8610

== ENCOUNTER 2018-11-04 09:18 | Inpatient (IN) | payer MEDICARE, BC ==
[2018-11-04] MEDS ORDERED: Acetaminophen TAB* 325 MG PO ONE (09:49)
--- NOTE | 2018-11-04 09:49 | ED ---
Head Injury - HPI Summary HPI Summary: Pt is an 83 y/o M presenting to the ED with a chief complaint of a fall. He states he was walking this morning with his walker when he fell backwards and hit the back of his head. He currently reports a headache, an episode of diplopia, and back pain. He denies fever, chills, erythema or eyes, sore throat , CP, SOB, cough, abd pain, N/V, dysuria, hematuria, edema, rash, or dizziness. - History Of Current Complaint Chief Complaint: EDFall Stated Complaint: FALL HEAD ABRASION PER EMS Time Seen by Provider: 11/04/18 09:36 Hx Obtained From: Patient Mechanism Of Injury: Fall From A Standing Position Onset/Duration: Started Hours Ago, Still Present Onset of Pain: Immediate Severity Currently: Mild Severity Initially: Mild Pain Intensity: 2 Pain Scale Used: 0-10 Numeric Location of Head Injury: Occipital Character: Aching Associated Signs And Symptoms: Headache, Visual Changes, Other: - lac on back of head - Allergies/Home Medications Allergies/Adverse Reactions: Allergies Allergy/AdvReac Type Severity Reaction Status Date / Time glipizide Allergy Rash Verified 09/30/18 11:07 Sulfa (Sulfonamide Allergy Rash Verified 09/30/18 11:07 Antibiotics) aureomycin Allergy Rash Uncoded 09/30/18 11:07 Home Medications: Home Medications LORazepam [Ativan 0.5 MG TAB] 0.5 mg PO Q12HR 11/04/18 [History Confirmed ] Trazodone HCl 25 mg PO BEDTIME 11/04/18 [History Confirmed 11/04/18] clonazePAM [Clonazepam] 1 mg PO BEDTIME 11/04/18 [History Confirmed 11/04/18] PMH/Surg Hx/FS Hx/Imm Hx Previously Healthy: Yes Endocrine/Hematology History: Reports: Hx Diabetes - type 2 Cardiovascular History: Reports: Hx Coronary Artery Disease - iscemic heart diease, Hx Hypertension - on meds, Hx Peripheral Vascular Disease - right lower leg Denies: Hx Pacemaker/ICD, Other Cardiovascular Problems/Disorders Respiratory History: Reports: Hx Sleep Apnea - no refused study Denies: Hx Asthma, Other Respiratory Problems/Disorders GI History: Denies: Other GI Disorders History: Denies: Hx Dialysis, Hx Renal Disease Musculoskeletal History: Reports: Hx Arthritis - neck, hands Denies: Hx Osteoporosis, Other Musculoskeletal History Sensory History: Reports: Hx Cataracts, Hx Contacts or Glasses - glasses, Hx Hearing Aid - PT WONT WEAR, Hx Hearing Problem - refuses to wear TONG Denies: Other Sensory Impairments Opthamlomology History: Reports: Hx Cataracts, Hx Contacts or Glasses - glasses Denies: Other Sensory Impairments Neurological History: Reports: 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 APPENDECTOMY; . colon resection, 2015, [facility];. temporal bx;. DR. SMITH GANGLION CYSTER REMOVED/TRIGGER FINGER; Hx Anesthesia Reactions: Yes - has acted out post op - Immunization History Immunizations Up to Date: Yes Infectious Disease History: No Infectious Disease History: Denies: Traveled Outside the [place] in Last 30 Days - Family History Known Family History: Positive: Diabetes - Social History Alcohol Use: Daily Alcohol Amount: 1 glass of wine daily Hx Substance Use: No Substance Use Type: Reports: None Hx Tobacco Use: Yes Smoking Status (MU): Former Smoker Type: Cigarettes Amount Used/How Often: pack a day for 20 yrs Have You Smoked in the Last Year: No Review of Systems Negative: Fever, Chills Positive: Diplopia. Negative: Erythema Negative: Sore Throat Negative: Chest Pain Negative: Shortness Of Breath, Cough Negative: Abdominal Pain, Vomiting, Nausea Negative: dysuria, hematuria Positive: Myalgia - back pain. Negative: Edema Negative: Rash Neurological: Negative - dizziness Positive: Headache All Other Systems Reviewed And Are Negative: Yes Physical Exam - Summary Physical Exam Summary: Constitutional: Well-developed, Well-nourished, Alert. (-) Distressed Skin: Warm, Dry HENT: Normocephalic; V-shaped laceration approximately 2cm on the occiput. There is no underlying skull tenderness. Eyes: Conjunctiva normal Neck: Musculoskeletal ROM normal neck. (-) JVD, (-) Stridor, (-) Tracheal deviation Cardio: Rhythm regular, rate normal, Heart sounds normal; Intact distal pulses; The pedal pulses are 2+ and symmetric. Radial pulses are 2+ and symmetric. (-) Murmur Pulmonary/Chest wall: Effort normal. (-) Respiratory distress, (-) Wheezes, (-) Rales Abd: Soft, (-) tenderness, (-) Distension, (-) Guarding, (-) Rebound Musculoskeletal: (-) Edema Lymph: (-) Cervical adenopathy Neuro: Alert, Oriented x3 Psych: Mood and affect Normal Triage Information Reviewed: Yes Vital Signs On Initial Exam: Initial Vitals Temp Pulse Resp BP Pulse Ox 98.6 F 70 18 163/78 100 11/04/18 09:24 11/04/18 09:24 11/04/18 09:24 11/04/18 09:24 11/04/18 09:24 Vital Signs Reviewed: Yes - Martin Coma Scale Best Eye Response: 4 - Spontaneous Best Motor Response: 6 - Obeys Commands Best Verbal Response: 5 - Oriented Coma Scale Total: 15 Procedures - Laceration/Wound Repair 1 Location: head Betadine Prep?: Yes Laceration/Wound Explored: clean Closure: [place] #__ - 3 Layer Closure?: Yes Sterile Dressing Applied?: Yes Diagnostics - Vital Signs Vital Signs Temp Pulse Resp BP Pulse Ox 11/04/18 09:24 98.6 F 70 18 163/78 100 - Laboratory Result Diagrams: 11/04/18 10:47 11/04/18 10:47 Lab Statement: Any lab studies that have been ordered have been reviewed, and results considered in the medical decision making process. - Radiology CXR Radiology Interpretation Completed By: Radiologist Summary of Radiographic Findings: No displaced rib fracture or pneumothorax. ED physician has reviewed this report. - CT Brain CT CT Interpretation Completed By: Radiologist Summary of CT Findings: 1. SUBDURAL HEMATOMA ADJACENT TO THE LEFT FRONTAL LOBE CAUSING MILD MASS EFFECT AND APPROXIMATELY 3 MM OF SUBFALCINE HERNIATION. 2. CHRONIC FRACTURE THROUGH THE MASTOID PORTION OF THE RIGHT TEMPORAL BONE AND MASTOID EFFUSION, UNCHANGED. ED physician has reviewed this report. C-spine CT CT Interpretation Completed By: Radiologist Summary of CT Findings: No CT evidence for traumatic C-spine injury. ED physician has reviewed this report. - EKG 1040 Cardiac Rate: NL - 70bpm EKG Rhythm: Sinus Rhythm ST Segment: Non-Specific Ectopy: None Summary of EKG Findings: EKG at 1040 shows NSR at 70bpm with nonspecific T abnormalities, borderline ST elevation, but no STEMI. Re-Evaluation - Re-Evaluation 1st re-eval Re-Evaluation Time: 10:40 Change: Unchanged Comment: Pt is still awake, and I discussed the CT findings with his daughter. Head Injury Course/Dx Course Of Treatment: Pt is an 83 y/o M presenting to the ED with a chief complaint of a fall. He states he was walking this morning with his walker when he fell backwards and hit the back of his head. He currently reports a headache , an episode of diplopia, and back pain. He denies fever, chills, erythema or eyes, sore throat, CP, SOB, cough, abd pain, N/V, dysuria, hematuria, edema, rash, or dizziness. Pt has a V-shaped laceration on the occiput of his head without any underlying skull tenderness. Wound closed with 3 brina, prepped with Betadine. Sterile technique used, pt stable before and after procedure. Brain CT shows: 1. SUBDURAL HEMATOMA ADJACENT TO THE LEFT FRONTAL LOBE CAUSING MILD MASS EFFECT AND APPROXIMATELY 3 MM OF SUBFALCINE HERNIATION. 2. CHRONIC FRACTURE THROUGH THE MASTOID PORTION OF THE RIGHT TEMPORAL BONE AND MASTOID EFFUSION, UNCHANGED. C-spine CT shows: No CT evidence for traumatic C-spine injury. EKG at 1040 shows NSR at 70bpm with nonspecific T abnormalities, borderline ST elevation, but no STEMI. CXR shows: No displaced rib fracture or pneumothorax. I spoke with Dr. Khan who [place] be [place] [facility] subd[place] hematoma. 1245 - I spoke with Dr. Nix who states he is still operating. - Diagnoses Provider Diagnoses: Subdural hematoma - Physician Notifications Discussed Care Of Patient With: Marylin Khan Time Discussed With Above Provider: 11:46 Instructed by Provider To: Admit As Inpatient - Critical Care Time Critical Care Time: 30-74 min - 45min Discharge - Sign-Out/Discharge Documenting (check all that apply): Patient Departure - Discharge Plan Condition: Stable Disposition: ADMITTED TO [facility] Referrals: Chinyere Alvarenga MD [Primary Care Provider] - - Attestation Statements Document Initiated by Scribe: Yes Documenting Scribe: Daisha Urbina Provider For Whom Scribe is Documenting (Include Credential): Delfino Rodriguez MD. Scribe Attestation: I, Daisha Urbina, scribed for Delfino Rodriguez MD. on 11/04/18 at 3891. Consult Consult: 4024 - I spoke with Dr. Khan who will be accepting the [place] [facility]
--- OUTSIDE RECORDS SUMMARY | 2018-11-04 10:01 | XMS REPORT | Continuity of Care Document ---
:1935 External Reference #:[id number] Author Name Carmelo Charles MD Address [address] [place] [address] Care Team Providers Name Role Phone Chinyere Alvarenga M.D. 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 Primary Care Physician Unavailable Payers Date Identification Numbers Payment Provider Subscriber Policy Number: [id number] [employer] [employer] [place] [employer] PayID: [id number] [address] [place] [address] Policy Number: [id number] [facility] [place] PayID: [id number] 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 Carmelo Charles MD Onset: 03/2016 Impacted cerumen Carmelo Charles MD Onset: 08/20/2015 Unspecified sensorineural hearing loss Carmelo Charles MD Onset: 08/20/2015 Sensorineural hearing loss Carmelo Charles MD Onset: 12/08/2016 Essential hypertension Carmelo Charles MD Onset: 08/20/2015 Disorder of vocal cord Carmelo Charles MD Onset: 10/29/2018 Difficulty speaking Carmelo Charles MD Onset: 10/29/2018 Family History Date Family Member(s) Observation Comments General No Current Problems Social History Type Date Description Comments Sex Unknown Occupation Retired Tobacco Use Start: Unknown End: Former Cigarette Smoker Quit at age 52 Unknown Tobacco Use Start: Unknown Never Smoked Cigars Tobacco Use Start: Unknown Never Smoked A Pipe Smokeless Tobacco Never Used Smokeless Tobacco ETOH Use Currently consumes 1 glass of wine per day Allergies, Adverse Reactions, Alerts Active Allergies Reaction Severity Comments Date sulfa Had reaction as a child 08/20/2015 Glipizide 10/29/2018 Medications Active Medications SIG Qnty Indications Ordering Provider Date Zyrtec Allergy 1 by mouth every Unknown 10mg day Tablets Vitamin B-12 1 by mouth every Unknown 1000mcg day Tablets Trazodone 25MG QHS Unknown Thiamine HCL qam Unknown 100mg Tablets Prednisone daily Unknown 1mg Tablets Oyster Shell Calcium daily Unknown Plusvitamin D [id number] Tablets Metformin HCL ER Chinyere Alvarenga 500mg M.D. Tablets ER 24HR Metoprolol Succinate Take 1 Tablet By Unknown ER Mouth Every Day 50mg Tablets ER 24HR Repaglinide Take 1 Tablet By Unknown 0.5mg Tablets Mouth Three Times Daily Methotrexate Take 3 Tablets By Unknown 2.5mg Mouth One Time Tablets Weekly Citalopram As directed Chinyere Alvarenga Hydrobromide M.D. 40mg Tablets Aspirin 1 by mouth once a Chinyere Alvarenga [address]mg Table[address] M.D. Vitamin D qam Chinyere Alvarenga 2000Unit M.D. Capsules Ativan Q12H prn Unknown 0.5mg Tablets Bupropion Chinyere Alvarenga Hydrochloride ER (XL) M.D. 300mg Tablets ER 24HR Clonazepam QHS prn Unknown 1mg Tablets Rosuvastatin Calcium Take 1 Tablet By Unknown 10mg Mouth Every Day Tablets Folic Acid Take 1 Tablet By Unknown 1mg Tablets Mouth Every Day Magnesium Oxide 1 by mouth every Unknown 400mg day Tablets Sertraline HCL Take 1 Tablet By Unknown 50mg Mouth Every Day Tablets History Medications Atenolol As directed Chinyere Alvarenga - 50mg Tablets M.D. 10/29/2018 SF 5000 Plus As directed Chinyere Alvarenga - 1.1% Cream M.D. 10/29/2018 Metformin HCL ER As directed Lyle, Chinyere - 500mg M.D. 10/29/2018 Tablets ER 24HR Peg 3350/Electrolytes Unknown - 08/20/2015 240gm Solution Rec Simvastatin As directed Lyle Chinyere - 40mg Tablets M.D. 10/29/2018 Fluconazole Unknown - 200mg Tablets 08/20/2015 Fluconazole Unknown - 100mg Tablets 08/20/2015 Januvia take as prescribed Lyle Chinyere - 25mg Tablets M.D. 10/29/2018 Vital Signs Date Vital Result Comment 10/29/2018 10:44am Weight 151.00 lb Weight 68.494 kg Height 66 inches 5'6" Height in cm's 167.6 cm BMI (Body Mass Index) 24.4 kg/m2 12/08/2016 9:56am BP Systolic 144 mmHg Recheck BP Diastolic 82 mmHg Recheck Heart Rate 70 /min Respiratory Rate 17 /min 12/08/2016 9:24am BP Systolic 153 mmHg BP Diastolic 101 mmHg Heart Rate 75 /min Respiratory Rate 17 /min Weight 160.00 lb Weight 72.576 kg Height 67.5 inches 5'7.50" Height in cm's 171.4 cm BMI (Body Mass Index) 24.7 kg/m2 01/31/2016 2:36pm BP Systolic 135 mmHg BP Diastolic 79 mmHg Heart Rate 69 /min Respiratory Rate 17 /min Weight 154.00 lb Weight 69.854 kg Height 67.5 inches 5'7.50" Height in cm's 171.4 cm BMI (Body Mass Index) 23.8 kg/m2 08/20/2015 10:25am BP Systolic 130 mmHg BP Diastolic 72 mmHg Heart Rate 64 /min Respiratory Rate 17 /min Weight 154.00 lb Weight 69.854 kg Height 67.5 inches 5'7.50" Height in cm's 171.4 cm BMI (Body Mass Index) 23.8 kg/m2 Procedures Date Code Description Status 10/29/2018 77635 Fiberoptic Laryngoscopy Completed 12/08/2016 36761 Removal Wax Impaction Completed 01/31/2016 61095 Removal Wax Impaction Completed 08/20/2015 59346 Removal Wax Impaction Completed Encounters Type Date Location Provider Dx Diagnosis Office Visit 10/29/2018 10:15a [place] 05/11/07 Carmelo Charles MD R49.0 Dysphonia J38.3 Other diseases of vocal cords Office Visit 12/08/2016 [place] Carmelo Charles D48.1 Neoplasm of 9:15a 05/11/07 uncertain behavior of connctv/soft tiss H61.23 Impacted cerumen, bilateral H90.5 Unspecified sensorineural hearing loss Office Visit 01/31/2016 [place] Carmelo Charles D48.1 Neoplasm of 2:30p 05/11/07 uncertain behavior of connctv/soft tiss H61.23 Impacted cerumen, bilateral Office Visit 08/20/2015 [place] Carmelo Charles D48.1 Neoplasm of 10:15a 05/11/07 uncertain behavior of connctv/soft tiss H61.23 Impacted cerumen, bilateral H90.5 Unspecified sensorineural hearing loss Plan of Treatment 10/29/2018 - Carmelo Charles MDR49.0 OrbdpubivR11.3 Other diseases of vocal cordsComments:Patient with symptoms of dysphonia most likely related to the atrophic changes of his voice related to aging. At this point there is no significant medical management for this. Reassured recheck whennecessary.
[2018-11-04 10:55] LABS: ABS Eosinophils 0.1 10^3/ul (0-0.6); ABS Lymphocytes 0.5 10^3/ul (1.0-4.8); ABS Monocytes 0.5 10^3/ul (0-0.8); ABS Neutrophils 6.2 10^3/ul (1.5-7.7); Eosinophil % 1.1 %; Hematocrit 40 % (42-52); Hemoglobin 13.3 g/dL (14.0-18.0); Lymphocyte % 7.4 %; Mean Corpuscular HGB Conc 33 g/dL (31-36); Mean Corpuscular Hemoglobin 31 pg (27-31); Mean Corpuscular Volume 93 fL (80-94); Mean Platelet Volume 6.9 fL (7.4-10.4); Platelet Count 216 10^3/uL (150-450); Red Blood Count 4.25 10^6 /uL (4.18-5.48); Red Cell Distribution Width 14 % (10-15); White Blood Count 7.4 10^3/uL (3.5-10.8)
[2018-11-04 11:28] LABS: Albumin 3.9 g/dL (3.2-5.2); Albumin/Globulin Ratio 1.7 (1-3); BUN/Creatinine Ratio 21.2 (8-20); Calcium 9.6 mg/dL (8.6-10.3); EGFR African American 75.4 (>60); EGFR Non-African American 62.3 (>60); Globulin 2.3 g/dL (2-4); Potassium 4.8 mmol/L (3.5-5.0); Total Bilirubin 0.5 mg/dL (0.2-1.0); Total Protein 6.2 g/dL (6.4-8.9)
[2018-11-04 11:31] LABS: Activated Partial Thrombo Time 32.1 seconds (26.0-38.0); INR 0.98 (0.82-1.09)
[2018-11-04] MEDS ORDERED: Acetaminophen TAB* 325 MG PO PRN (13:00)
[2018-11-04] MEDS ORDERED: Ondansetron INJ* 2 MG/ML VIAL ONE (13:29)
[2018-11-04] MEDS: Ondansetron INJ* 2 MG/ML VIAL IV PRN (13:30)
[2018-11-04] MEDS ORDERED: Dextrose 50% Syringe 50 ML* 25 GM/50 ML SYRINGE IV PUSH PRN (13:30)
--- NOTE | 2018-11-04 14:28 | HP ---
ATTENDING ADDENDUM NOW INCLUDED ON THIS REPORT CC: Dr. Chinyere Alvarenga; Dr. Sho Cramer; Dr. Karen Welsh * HISTORY AND PHYSICAL: DATE OF ADMISSION: 11/04/18 PRIMARY CARE PROVIDER: Dr. Chinyere Alvarenga. OTHER PROVIDER: Dr. Sho rCamer. ATTENDING PHYSICIAN: Dr. Kashmir Corcoran * (dictated by MERRITT Stark). CHIEF COMPLAINT: Fall. HISTORY OF PRESENT ILLNESS: Mr. Romero is an 83-year-old male with a past medical history of diabetes mellitus, hypertension, giant cell arteritis and PMR , who presents to the ER today status post fall. He is noted to be in [facility] for PT/OT, speech therapy after a concussion suffered approximately 1 month ago. He was planned to be discharged home on Thursday. He walks with a walker, assistance and uses a wheelchair. He suffered an unwitnessed fall today and was found on the floor in front of his dresser in his room. He was sent to the ER due to head laceration, fall with head injury. He is noted to be on aspirin only for blood thinners. In addition to headache and head pain status post fall, he also complaints of right knee pain. He denies changes in vision, although he notes that he has baseline vision changes to include diplopia that he has had for 3 years and was obtained during chemotherapy. He has had a neurological workup in the past for this. He also complains of some neck pain. He denies numbness, tingling or changes in strength in the upper and lower extremities. He denies nausea, vomiting. While in the ER, the patient received a full workup which included laboratory studies as well as rib x-ray and CT of the head and neck. He was found to have a subdural hematoma left frontal lobe. The hospitalist team was asked to evaluate the patient for admission. PAST MEDICAL HISTORY: 1. Diabetes mellitus. 2. Hypertension. 3. Giant cell arteritis, polymyalgia rheumatica. 4. History of colon cancer, in remission. 5. History of fall with closed injury, postconcussive syndrome. PAST SURGICAL HISTORY: No history of brain or head surgery. HOME MEDICATIONS: 1. Aspirin 81 mg p.o. q.a.m. 2. Bupropion XL 300 mg p.o. at bedtime. 3. Calcium carbonate/vitamin D3 one cap p.o. q.a.m. 4. Cetirizine 10 mg p.o. q.a.m. 5. Cholecalciferol 2000 units p.o. q.a.m. 6. Clonazepam 1 mg p.o. at bedtime. 7. Cyanocobalamin 1000 mcg p.o. q.a.m. 8. Folic acid 1 mg p.o. q.a.m. 9. Lorazepam 0.5 mg p.o. q.12 hours. 10. Magnesium oxide 400 mg p.o. q.a.m. 11. Metformin 1000 mg p.o. b.i.d. 12. Methotrexate 5 mg p.o. q.7 days. 13. Metoprolol succinate XL 50 mg p.o. q.a.m. 14. Prednisone 1 mg p.o. q.a.m. 15. Repaglinide 0.5 mg p.o. at bedtime. 16. Rosuvastatin 10 mg p.o. at bedtime. 17. Sertraline 50 mg p.o. at bedtime. 18. Thiamine 100 mg p.o. q.a.m. 19. Trazodone 25 mg p.o. at bedtime. DRUG ALLERGIES: GLIPIZIDE, rash; SULFA, rash; AUREOMYCIN, rash. FAMILY HISTORY: Denies history of CVA. Reviewed and noncontributory. SOCIAL HISTORY: The patient is a former smoker. He quit at the age of 60. He has a 25-pack year history. He does not use alcohol. He is currently at [facility] for rehab. He lives at home with his . In the event that he is unable to make his own medical decisions, he has appointed his , Janie Romero to be his surrogate decision maker. REVIEW OF SYSTEMS: A 10-point review of systems was performed and all the pertinent positives and negatives are in the HPI, all other systems are negative. PHYSICAL EXAMINATION GENERAL: Mr. Romero is a well-developed, well-nourished, normal weight 83-year - old male who is lying flat in bed. He appears well. He is cooperative and appropriate. He is slightly forgetful. He appears his staged age. VITAL SIGNS: Temperature 98.6 temporal, heart rate 67, respiratory rate 18, oxygen saturation 96% on room air, blood pressure 170/85. HEENT: PERRL. Extraocular movements intact, although the patient has difficulty following instructions for this. Nonicteric sclerae. Hearing is grossly intact. External auditory canals are patent without blood. Tympanic membranes intact. Oral mucous membranes are moist. There are no lesions. Pharynx is clear. Head is normocephalic. Laceration to the left posterior occipital area with [address] No active bleeding. NECK: Nontender to palpation. RESPIRATORY: Symmetrical chest expansion without the use of accessory muscles. Lungs are clear to auscultation bilaterally without rhonchi, wheeze, or rales. CARDIOVASCULAR: Regular rate and rhythm with S1, S2 present without murmurs, rubs, clicks, or gallops. There is no JVD. ABDOMEN: Bowel sounds noted in all quadrants. The abdomen is soft. There is no tenderness to palpation. MUSCULOSKELETAL: Full range of motion without pain or deformity. Right knee is somewhat painful with excessive flexion. There is no erythema or swelling. EXTREMITIES: Skin is warm and smooth bilaterally without clubbing, cyanosis, or edema. NEURO: The patient is awake. He is alert and oriented to self, location and date except for exact day, although he knows that it is the end of October. Cranial nerves are grossly intact. He is able to move all of his extremities with a motor strength of 5/5 in upper and lower extremities bilaterally. GAIT: Not assessed. DIAGNOSTIC STUDIES/LAB DATA: HGB 13.3, HCT 40. PT/INR within normal limits. Glucose 137, lactic acid 1.1. EKG: Regular rate and rhythm, rate 70. No ST changes. Brain CT, 11/04/18, impression: Subdural hematoma adjacent to the left frontal lobe causing mild mass effect and approximately 3 mm of subfalcine herniation. Chronic fracture through the mastoid portion of the right temporal bone and mastoid effusion, unchanged. Cervical spine CT, 11/04/18, impression: No CT evidence for traumatic cervical spine injury. Chest x-ray, left ribs, 11/04/18, impression: No displaced rib fracture or pneumothorax. ASSESSMENT AND PLAN: Mr. Romero is an 83-year-old male with a past medical history of concussion, status post fall, diabetes, hypertension, giant cell arteritis plus polymyalgia rheumatica, who presented to the ER today after a fall and he was found to have a subdural hematoma. The patient will be admitted to observation for: 1. Subdural hematoma. CT of the brain revealed subdural hematoma of the left frontal lobe with mild mass effect. CT of the neck is within normal limits. The patient will be admitted to the ICU. His aspirin has been discontinued. Neuro checks q.2 hours. Seizure precautions. Start Keppra. Repeat CT in the a.m. [address] Neurosurgery has been consulted and notified. The patient is currently n.p.o. until assessed by Neurosurgery. 2. Right knee pain. The patient has pain in the right knee with movement. Right knee x-ray has been ordered. 3. Diabetes mellitus. Discontinue home medications. We will start lispro sliding scale and fingersticks a.c. Monitor for need to add long acting insulin. 4. Hypertension. Continue home medications, metoprolol. 5. Polymyalgia rheumatica, giant cell arteritis. Continue prednisone 1 mg daily. Monitor for increase in prednisone due to stress. 6. Hyperlipidemia. Continue rosuvastatin. 7. Anxiety and depression. Continue Zoloft, bupropion, clonazepam, Ativan. 8. FEN. N.p.o. until Neurosurgery assessment. 9. Code status. DNR/DNI. 10. DVT prophylaxis. According to the DVT Risk Assessment, the patient scores 3 and is high risk. Due to subdural hematoma, we will not place him on chemoprophylaxis. SCDs have been ordered. TIME SPENT: Approximately 60 minutes were spent on this admission, greater than half that time was spent [id number] with the patient and his obtaining history, performing physical, and reviewing the plan of care. The case has been reviewed with my attending, Dr. Corcoran, who is in agreement with the plan of care. MERRITT NICHOLSON ZADDENDUM: Mr. Romero is an 83-year-old male with a past medical history of type 2 diabetes, hypertension, giant cell arteritis, polymyalgia rheumatica, colon cancer, admission in end of September 2018 after a fall, thought to have a concussion , who comes to the emergency room after sustaining a fall at [facility]. The patient's workup included a CT of the brain and it revealed a subdural hematoma adjacent to the left frontal lobe, causing mild mass effect in approximately 3 mm of subfalcine herniation. Chronic fracture through the mastoid portion of the right temporal bone and mastoid effusion unchanged when compared to his prior CT from September 2018. The patient was seen and examined in the emergency room and I am in agreement with Kaylee Foley's findings. The patient was lying in the ED stretcher, easily arousable, oriented to self, location, but he did not know the exact date , but he was correct that this is October. Cranial nerves are grossly intact. His face was symmetric. Strength was 5/5 in all 4 extremities. During my interview, he had no complaints. The case was discussed with neurosurgeon (Dr. Cramer). The plan is that the patient should to be admitted to ICU where he will be monitored with frequent neuro checks. He will also receive levetiracetam for seizure precaution. He will have a followup CT in the morning. Further management will depend on how he progresses to see if surgical intervention will be required I am in agreement with the current plan. KASHMIR Corcoran MD [id number]/CPS #: [id number]/CPS #: [id number] ALEX
[2018-11-04] MEDS ORDERED: levETIRAcetam TAB* 500 MG PO SCH (15:00)
[2018-11-04] MEDS: Insulin LISPRO* 1 UNITS UNIT SUBCUT SCH ×2 (16:42→21:16)
[2018-11-04] MEDS ORDERED: Labetalol IV* 5 MG/ML 20 ML VIAL IV PUSH ONE (16:45)
--- NOTE | 2018-11-04 19:21 | HP ---
CC: Dr. Alvarenga; Dr. Karen Welsh; Dr. Cramer HISTORY AND PHYSICAL: ADDENDUM: Mr. Romero is an 83-year-old male with a past medical history of type 2 diabetes, hypertension, giant cell arteritis, polymyalgia rheumatica, colon cancer, admission in end of September 2018 after a fall, thought to have a concussion, who comes to the emergency room after sustaining a fall at [facility]. The patient's workup included a CT of the brain and it revealed a subdural hematoma adjacent to the left frontal lobe, causing mild mass effect in approximately 3 mm of subfalcine herniation. Chronic fracture through the mastoid portion of the right temporal bone and mastoid effusion unchanged when compared to his prior CT from September 2018. The patient was seen and examined in the emergency room and I am in agreement with Kaylee Foley's findings. The patient was lying in the ED stretcher, easily arousable, oriented to self, location, but he did not know the exact date , but he was correct that this is October. Cranial nerves are grossly intact. His face was symmetric. Strength was 5/5 in all 4 extremities. During my interview, he had no complaints. The case was discussed with neurosurgeon (Dr. Cramer). The plan is that the patient should to be admitted to ICU where he will be monitored with frequent neuro checks. He will also receive levetiracetam for seizure precaution. He will have a followup CT in the morning. Further management will depend on how he progresses to see if surgical intervention will be required I am in agreement with the current plan. [id number]/CPS #: [id number] [facility] CENTERYvonne
[2018-11-04] MEDS ORDERED: Acetaminophen SUPP* 650 MG SUPP PR PRN (20:03)
[2018-11-04] MEDS ORDERED: Lorazepam PYXIS KEY PRN (20:04)
[2018-11-04] MEDS ORDERED: LORazepam INJ* 2 MG/ML 1 ML VIAL IV PUSH PRN (20:04)
--- NOTE | 2018-11-04 20:08 | PN ---
Progress Note - Progress Note Date of Service: 11/04/18 Note: Event Note Patient admitted earlier today with fall, subdural hematoma. Nurse reporting worsening mental status, cannot say his own name. Selected Entries 11/04/18 18:20 Temperature 36.6 C Pulse Rate 85 Respiratory 18 Rate Blood Pressure 143/75 (mmHg) O2 Sat by Pulse 97 Oximetry Patient arouses to touch, eyes closed. Answers questions with yes or no. Cannot say name. Not following commands to open eyes, move limbs. Will repeat head CT stat. Will discuss with Dr. Devries. May have enlarging hematoma.
[2018-11-04] MEDS: Labetalol IV* 5 MG/ML 20 ML VIAL IV PUSH PRN (20:09)
[2018-11-04] MEDS ORDERED: clonazePAM TAB(*) 1 MG PO SCH (21:00)
[2018-11-04] MEDS ORDERED: Atorvastatin* 20 MG TAB PO SCH (21:00)
[2018-11-04] MEDS ORDERED: Sertraline* 50 MG TAB PO SCH (21:00)
[2018-11-04] MEDS ORDERED: BuPROPion XL* 300 MG TAB.XL PO SCH (21:00)
[2018-11-04] MEDS ORDERED: Thiamine IV* 100 MG in NS 0.9% 50 ML* 50 ML IV SCH (21:00)
[2018-11-04] MEDS ORDERED: Thiamine IV* 100 MG/ML 2 ML VIAL IM SCH (21:00)
[2018-11-04] MEDS ORDERED: LORazepam TAB(*) 0.5 MG PO SCH (21:00)
[2018-11-04] MEDS: levETIRAcetam 500 MG IVPREMIX* 500 MG/100 ML BAG IV SCH (21:12)
--- NOTE | 2018-11-04 21:31 | CONSULT ---
Consult Consult: Subjective: History Given by via phone conference 83 y/o male with history of multiple PTW with increased confusion post mechanical fall. Patient first fall was 10/01/18, but reports changes in cognition and aphasia in starting in April. Patient was being treated with steroids for Giant Cell arteritis and the mental changes were considered a sequela of his treatment. His mentation made incremental improvements, but reports he behavior changes, disturbances with balance in gait. Prior to this latest fall patient was independently doing ADL's. Patient fell this morning while ambulating with walker fell backwards and hit his head. A new scan completed n the ER demonstrated a left SDH, neurosurgery was call consult on patient. PMH: HTN DM Type II LAD Lesion Stage III colon CA Giant Cell Arterits Parkinson's CVA Alzheimer's Meds: See Chart Surgery History: Appendectomy Collon resection 2014 Objective: General: Patient laying in bed, NAD Neuro: A&O x 1, GCS 12, patient is confused, demonstrates aphasia, does not follow commands, withdraws from painful stimuli. Moves all extremities. Postive Babinski's on right clonus 3 beats on the left. Patient has noticeable tremor. Assessment: 83 y/o male PTW with increased confusion s/p mechanical fall, on CT scan has a left SDH with mass effect without midline shift. and medical staff report an increase in confusion throughout his observation period. Plan: Neurosurgery considered a rpeat CT scan to evaluate for progression of bleeding , the medicine team have already completed a repeat scan that show an acute right frontal bleed with no changes in the left SDH, with no midline shift. Surgical intervention is rcommended, as mentioned randa family was contacted and indicates that they were not interested in surgical intervention, but instead would perfer conservative therapy. I have discussed this case with Dr. Cramer and he will reach out with family to discuss new CT scan findings
[2018-11-04] MEDS ORDERED: Iodixanol* (CONTRAST) 320 MG/ML 100 ML SDV IV ONE (21:57)
[2018-11-04] MEDS: Metoprolol Tartrate IV* 1 MG/ML 5 ML VIAL IV PRN (22:25)
[2018-11-04] MEDS ORDERED: Labetalol IV* 5 MG/ML 20 ML VIAL IV PUSH PRN (23:00)
[2018-11-05] MEDS: Labetalol IV* 5 MG/ML 20 ML VIAL IV PUSH PRN (06:23)
[2018-11-05 08:54] LABS: ABS Lymphocytes 0.7 10^3/ul (1.0-4.8); ABS Neutrophils 9.7 10^3/ul (1.5-7.7); Hematocrit 39 % (42-52); Hemoglobin 13.1 g/dL (14.0-18.0); Lymphocyte % 6.5 %; Mean Corpuscular HGB Conc 34 g/dL (31-36); Mean Corpuscular Hemoglobin 31 pg (27-31); Mean Corpuscular Volume 93 fL (80-94); Platelet Count 236 10^3/uL (150-450); Red Blood Count 4.22 10^6 /uL (4.18-5.48); Red Cell Distribution Width 14 % (10-15); White Blood Count 11.5 10^3/uL (3.5-10.8)
[2018-11-05] MEDS ORDERED: Cyanocobalamin TAB* 500 MCG PO SCH (09:00)
[2018-11-05] MEDS ORDERED: Cetirizine* 10 MG TAB PO SCH (09:00)
[2018-11-05] MEDS ORDERED: Thiamine TAB* 100 MG TAB PO SCH (09:00)
[2018-11-05] MEDS ORDERED: predniSONE TAB* 1 MG PO SCH ×2 (09:00)
[2018-11-05] MEDS ORDERED: Folic Acid TAB* 1 MG PO SCH (09:00)
[2018-11-05] MEDS ORDERED: Magnesium Oxide TAB* 400 MG PO SCH (09:00)
[2018-11-05] MEDS ORDERED: Metoprolol Succinate XL TAB* 50 MG PO SCH (09:00)
[2018-11-05] MEDS: Insulin LISPRO* 1 UNITS UNIT SUBCUT SCH (09:04)
[2018-11-05] MEDS: Metoprolol Tartrate IV* 1 MG/ML 5 ML VIAL IV PRN (09:05)
[2018-11-05] MEDS: levETIRAcetam 500 MG IVPREMIX* 500 MG/100 ML BAG IV SCH (09:10)
[2018-11-05 09:11] LABS: BUN/Creatinine Ratio 26.6 (8-20); Calcium 9.2 mg/dL (8.6-10.3); EGFR African American 78.6 (>60); EGFR Non-African American 64.9 (>60); Potassium 4.3 mmol/L (3.5-5.0)
[2018-11-05] MEDS: Morphine ORAL CONCENTRATE* 5 MG/0.25 ML ORAL.SYRIN SL PRN ×4 (11:06→21:27)
--- NOTE | 2018-11-05 13:23 | PN ---
Subjective Date of Service: 11/05/18 Interval History: Overnight events noted. Patient able to talk in brief sentences today, but is generally very lethargic and repeats words frequently. Patient unable to cooperate with ROS. Family History: Unchanged from Admission Social History: Unchanged from Admission Past Medical History: Unchanged from Admission Objective Active Medications: Acetaminophen (Tylenol Supp*) 650 mg MI Q6H PRN PRN Reason: FEVER/PAIN Lorazepam (Ativan Inj*) 1 mg IV PUSH Q2H PRN PRN Reason: AGITATION Miscellaneous (Ativan Pyxis Layne) 1 ea N/A .ATIVAN IV LAYNE PRN PRN Reason: PYXIS LAYNE Morphine Sulfate (Morphine Oral Concentrate*) 5 mg SL Q2H PRN PRN Reason: PAIN Last Admin: 11/05/18 11:06 Dose: 5 mg Ondansetron HCl (Zofran Inj*) 4 mg IV Q4H PRN PRN Reason: NAUSEA Last Admin: 11/04/18 13:30 Dose: 4 mg Vital Signs - 8 hr 11/05/18 11/05/18 11/05/18 05:31 05:32 05:33 Temperature Pulse Rate 85 Respiratory 22 22 17 Rate Blood Pressure 189/85 146/74 (mmHg) O2 Sat by Pulse Oximetry 11/05/18 11/05/18 11/05/18 05:45 06:00 06:15 Temperature Pulse Rate 84 85 86 Respiratory 21 28 18 Rate Blood Pressure 142/75 160/77 157/71 (mmHg) O2 Sat by Pulse 92 94 95 Oximetry 11/05/18 11/05/18 11/05/18 06:30 06:46 07:00 Temperature Pulse Rate 78 88 Respiratory 20 22 17 Rate Blood Pressure 148/80 147/85 (mmHg) O2 Sat by Pulse 97 95 Oximetry 11/05/18 11/05/18 11/05/18 07:02 07:15 07:30 Temperature Pulse Rate 80 79 Respiratory 19 16 17 Rate Blood Pressure 160/83 155/83 153/77 (mmHg) O2 Sat by Pulse 94 97 Oximetry 11/05/18 11/05/18 11/05/18 07:45 08:00 08:16 Temperature 98.1 F Pulse Rate 79 77 85 Respiratory 19 21 17 Rate Blood Pressure 140/85 161/127 170/129 (mmHg) O2 Sat by Pulse 97 95 95 Oximetry 11/05/18 11/05/18 11/05/18 08:30 09:00 09:01 Temperature Pulse Rate 77 82 82 Respiratory 23 27 16 Rate Blood Pressure 158/74 167/95 (mmHg) O2 Sat by Pulse 95 97 93 Oximetry 11/05/18 11/05/18 11/05/18 09:15 09:30 09:45 Temperature Pulse Rate 76 77 74 Respiratory 15 19 17 Rate Blood Pressure 133/81 167/84 162/78 (mmHg) O2 Sat by Pulse 97 98 96 Oximetry 11/05/18 11/05/18 11/05/18 10:00 10:16 10:30 Temperature Pulse Rate 74 76 73 Respiratory 30 18 15 Rate Blood Pressure 158/78 142/82 166/75 (mmHg) O2 Sat by Pulse 97 99 97 Oximetry 11/05/18 11/05/18 11/05/18 10:45 11:00 11:01 Temperature Pulse Rate 74 75 91 Respiratory 16 19 25 Rate Blood Pressure 156/74 144/101 (mmHg) O2 Sat by Pulse 99 89 95 Oximetry 11/05/18 11/05/18 11/05/18 11:16 11:30 11:45 Temperature 99.0 F Pulse Rate 78 74 79 Respiratory 25 20 16 Rate Blood Pressure 138/76 154/70 166/77 (mmHg) O2 Sat by Pulse 85 98 99 Oximetry Oxygen Devices in Use Now: Nasal Cannula Appearance: Patient is an 83yo male who appears stated age and is sitting in the bed in NAD. Eyes: No Scleral Icterus Ears/Nose/Mouth/Throat: NL Teeth, Lips, Gums, Clear Oropharnyx, Mucous Membranes Moist Neck: NL Appearance and Movements; NL JVP, Trachea Midline Respiratory: Symmetrical Chest Expansion and Respiratory Effort, Clear to Auscultation Cardiovascular: NL Sounds; No Murmurs; No JVD, RRR, No Edema Abdominal: NL Sounds; No Tenderness; No Distention, No Hepatosplenomegaly Lymphatic: No Cervical Adenopathy Extremities: No Edema, No Clubbing, Cyanosis Skin: No Nodules or Sclerosis, - - Stapled lacteration on posterior scalp. Neurological: - - Drowsy, intermittently rousable. Word finding difficulty. Hyperreflexia in left leg. Weak throughout. Result Diagrams: 11/05/18 08:45 11/05/18 08:45 Microbiology and Other Data: Microbiology 11/04/18 18:39 Nasal Screen MRSA (PCR) - Final Nasal Mrsa Not Detected Assess/Plan/Problems-Billing Assessment: Patient is an 83yo male with a PMH for PSP, GCA, and frequent falls who was at rehab and fell again with the development of 2 intracranial bleeds with his opting against surgery and for comfort care. - Patient Problems (1) Intraparenchymal hematoma of brain Current Visit: Yes Status: Acute Code(s): S06.360A - TRAUM HEMOR CEREB, W/O LOSS OF CONSCIOUSNESS, INIT SNOMED Code(s): 754462257 Comment: - Inital SDH and now 6cm intraparenchymal hemorrhage in Right frontal lobe. - Family opted against surgical intervention or other medical treatment. - Patient has signficantly decreased level of conciousness. (2) Progressive supranuclear palsy Current Visit: No Status: Acute Code(s): G23.1 - PROGRESSIVE SUPRANUCLEAR OPHTHALMOPLEGIA SNOMED Code(s): 096321972 Comment: - Relatively quick neurological decline before previous hospitalization with frequent falls - Poor prognosis overall. (3) DNR (do not resuscitate) Current Visit: Yes Status: Acute Comment: - Comfort Measures only. Status and Disposition: Comfort Care inpatient, pending possible placement.
[2018-11-05] MEDS: LORazepam INJ* 2 MG/ML 1 ML VIAL IV PUSH PRN ×3 (13:41→21:26)
--- NOTE | 2018-11-05 13:55 | CONSULT ---
Palliative / Hospice Consult Ordering Provider: Marty Mathew - PCP-[place] [facility] Reason: Goals of care and aftercare - Subjective Code Status: DNR Advance Directives Location: In Chart MOLST Part A Completed: Yes - on chart MOLST Part E Completed:: Yes - on chart - History or Present Illness History or Present Illness: 83yo male resident of [facility] rehab who had an unwitnessed fall on ASA with L subdural hematoma and R frontal hematoma. PMH is significan for DM, HTN , giant cell arteritis, h/o of colon cancer stage 3 s/p chemo 2014 & 2016, CAD, depression, esophagitis and arthritis. Pt was following with neurology and diagnosed with progressive supranuclear palsy for shuffled gait, cognitive decline and vision issues. Pt was living at home with until pt suffered post concussive syndrome after a fall and was hospitalized 10/01- and transferred to [facility] for rehab. 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 Janie is his HCP [phone]. Studies show cervical CT neg, brain CT #1 subdural L frontal lobe, CXR no rib fracture or pneumonia, EKG-nsr w st elevation in lateral leads, lumbar ct neg, thoracic CT-osteopenia and degenerative disc disease, brain CT #2 new R frontal hematoma, H/H 13.1/39, BUN/Cr 29/1.09 egfr 64.9, tprot 6.2 and alb 3.9. All history is from , daughter and medical records, pt is unable to contribute. Pt is admitted with intracranial brain bleed and subdural bleed s/p fall. Lab Values: Abnormal Lab Results 11/04/18 11/04/18 11/04/18 13:22 16:32 16:44 WBC RBC Hgb Hct MCV MCH MCHC RDW Plt Count MPV Neut % (Auto) Lymph % (Auto) Arroyo % (Auto) Eos % (Auto) Baso % (Auto) Absolute Neuts (auto) Absolute Lymphs (auto) Absolute Monos (auto) Absolute Eos (auto) Absolute Basos (auto) Absolute Nucleated RBC Nucleated RBC % Sodium Potassium Chloride Carbon Dioxide Anion Gap BUN Creatinine Est GFR ( Amer) Est GFR (Non-Af Amer) BUN/Creatinine Ratio Glucose POC Glucose (mg/dL) 165 H Calcium Troponin I 0.00 0.00 11/04/18 11/05/18 11/05/18 21:16 07:47 08:45 WBC RBC Hgb Hct MCV MCH MCHC RDW Plt Count MPV Neut % (Auto) Lymph % (Auto) Arroyo % (Auto) Eos % (Auto) Baso % (Auto) Absolute Neuts (auto) Absolute Lymphs (auto) Absolute Monos (auto) Absolute Eos (auto) Absolute Basos (auto) Absolute Nucleated RBC Nucleated RBC % Sodium 140 Potassium 4.3 Chloride 104 Carbon Dioxide 27 Anion Gap 9 BUN 29 H Creatinine 1.09 Est GFR ( Amer) 78.6 Est GFR (Non-Af Amer) 64.9 BUN/Creatinine Ratio 26.6 H Glucose 163 H POC Glucose (mg/dL) 117 H 160 H Calcium 9.2 Troponin I 11/05/18 08:45 WBC 11.5 H RBC 4.22 Hgb 13.1 L Hct 39 L MCV 93 MCH 31 MCHC 34 RDW 14 Plt Count 236 MPV 7.0 L Neut % (Auto) 85.0 Lymph % (Auto) 6.5 Arroyo % (Auto) 8.3 Eos % (Auto) 0.0 Baso % (Auto) 0.2 Absolute Neuts (auto) 9.7 H Absolute Lymphs (auto) 0.7 L Absolute Monos (auto) 1.0 H Absolute Eos (auto) 0.0 Absolute Basos (auto) 0.0 Absolute Nucleated RBC 0.0 Nucleated RBC % 0.0 Sodium Potassium Chloride Carbon Dioxide Anion Gap BUN Creatinine Est GFR ( Amer) Est GFR (Non-Af Amer) BUN/Creatinine Ratio Glucose POC Glucose (mg/dL) Calcium Troponin I Laboratory Last Values WBC 11.5 10^3/uL (3.5-10.8) H 11/05/18 08:45 RBC 4.22 10^6 /uL (4.18-5.48) 11/05/18 08:45 Hgb 13.1 g/dL (14.0-18.0) L 11/05/18 08:45 Hct 39 % (42-52) L 11/05/18 08:45 MCV 93 fL (80-94) 11/05/18 08:45 MCH 31 pg (27-31) 11/05/18 08:45 MCHC 34 g/dL (31-36) 11/05/18 08:45 RDW 14 % (10-15) 11/05/18 08:45 Plt Count 236 10^3/uL (150-450) 11/05/18 08:45 MPV 7.0 fL (7.4-10.4) L 11/05/18 08:45 Neut % (Auto) 85.0 % 11/05/18 08:45 Lymph % (Auto) 6.5 % 11/05/18 08:45 Arroyo % (Auto) 8.3 % 11/05/18 08:45 Eos % (Auto) 0.0 % 11/05/18 08:45 Baso % (Auto) 0.2 % 11/05/18 08:45 Absolute Neuts (auto) 9.7 10^3/ul (1.5-7.7) H 11/05/18 08:45 Absolute Lymphs (auto) 0.7 10^3/ul (1.0-4.8) L 11/05/18 08:45 Absolute Monos (auto) 1.0 10^3/ul (0-0.8) H 11/05/18 08:45 Absolute Eos (auto) 0.0 10^3/ul (0-0.6) 11/05/18 08:45 Absolute Basos (auto) 0.0 10^3/ul (0-0.2) 11/05/18 08:45 Absolute Nucleated RBC 0.0 10^3/ul 11/05/18 08:45 Nucleated RBC % 0.0 11/05/18 08:45 INR (Anticoag Therapy) 0.98 (0.82-1.09) 11/04/18 10:47 APTT 32.1 seconds (26.0-38.0) 11/04/18 10:47 Sodium 140 mmol/L (135-145) 11/05/18 08:45 Potassium 4.3 mmol/L (3.5-5.0) 11/05/18 08:45 Chloride 104 mmol/L (101-111) 11/05/18 08:45 Carbon Dioxide 27 mmol/L (22-32) 11/05/18 08:45 Anion Gap 9 mmol/L (2-11) 11/05/18 08:45 BUN 29 mg/dL (6-24) H 11/05/18 08:45 Creatinine 1.09 mg/dL (0.67-1.17) 11/05/18 08:45 Est GFR ( Amer) 78.6 (>60) 11/05/18 08:45 Est GFR (Non-Af Amer) 64.9 (>60) 11/05/18 08:45 BUN/Creatinine Ratio 26.6 (8-20) H 11/05/18 08:45 Glucose 163 mg/dL (70-100) H 11/05/18 08:45 POC Glucose (mg/dL) 160 mg/dL (70-100) H 11/05/18 07:47 Lactic Acid 1.1 mmol/L (0.5-2.0) 11/04/18 10:47 Calcium 9.2 mg/dL (8.6-10.3) 11/05/18 08:45 Total Bilirubin 0.50 mg/dL (0.2-1.0) 11/04/18 10:47 AST 16 U/L (13-39) 11/04/18 10:47 ALT 13 U/L (7-52) 11/04/18 10:47 Alkaline Phosphatase 91 U/L (34-104) 11/04/18 10:47 Troponin I 0.00 ng/mL (<0.04) 11/04/18 16:44 Total Protein 6.2 g/dL (6.4-8.9) L 11/04/18 10:47 Albumin 3.9 g/dL (3.2-5.2) 11/04/18 10:47 Globulin 2.3 g/dL (2-4) 11/04/18 10:47 Albumin/Globulin Ratio 1.7 (1-3) 11/04/18 10:47 Blood Type O Positive 11/04/18 10:47 Antibody Screen Negative 11/04/18 10:47 - Objective Active Medications: Acetaminophen (Tylenol Supp*) 650 mg [place] Q6H PRN PRN Reason: FEVER/PAIN Lorazepam (Ativan Inj*) 1 mg IV PUSH Q2H PRN PRN Reason: AGITATION Last Admin: 11/05/18 13:41 Dose: 1 mg Miscellaneous (Ativan Pyxis Layne) 1 ea N/A .ATIVAN IV LAYNE PRN PRN Reason: PYXIS LAYNE Morphine Sulfate (Morphine Oral Concentrate*) 5 mg SL Q2H PRN PRN Reason: PAIN Last Admin: 11/05/18 13:42 Dose: 5 mg Ondansetron HCl (Zofran Inj*) 4 mg IV Q4H PRN PRN Reason: NAUSEA Last Admin: 11/04/18 13:30 Dose: 4 mg Vital Signs: Vital Signs: Temp Pulse Resp BP Pulse Ox 99.0 F 79 16 166/77 99 11/05/18 11:45 11/05/18 11:45 11/05/18 13:42 11/05/18 11:45 11/05/18 11:45 Patient Weight: Weight 66.5 kg Intake and Output: Intake & Output 11/03/18 11/04/18 11/05/18 11/06/18 06:59 06:59 06:59 06:59 Intake Total 90 Output Total 450 Balance 90 -450 Weight 66.5 kg Intake: Medicated IV 90 Keppra 90 Output: Pace 450 Other: Estimated Void Medium Small # Voids 0 1 ADLs: Meal Record Start: 11/04/18 18: 38 Freq: 09,13,18 Status: Active Protocol: Created 11/04/18 18:38 System (Rec: 11/04/18 18:38 System [id number]) Intake and Output Start: 11/04/18 09: 29 Freq: Status: Active Protocol: Created 11/04/18 09:29 System (Rec: 11/04/18 09:29 System [id number]) Intake and Output Start: 11/04/18 18: 38 Freq: Q1HR Status: Active Protocol: Created 11/04/18 18:38 System (Rec: 11/04/18 18:38 System [id number]) Document 11/04/18 21:00 [id number] (Rec: 11/04/18 21:36 [id number] ICU-C16) Document 11/04/18 22:00 [id number] (Rec: 11/04/18 22:04 [id number] ICU-C16) Document 11/05/18 00:00 [id number] (Rec: 11/05/18 00:10 [id number] ICU-C16) Document 11/05/18 03:00 [id number] (Rec: 11/05/18 03:25 [id number] ICU-C16) Document 11/05/18 05:00 [id number] (Rec: 11/05/18 05:42 [id number] ICU-C16) Document 11/05/18 06:00 [id number] (Rec: 11/05/18 06:56 [id number] ICU-C16) Document 11/05/18 09:17 [id number] (Rec: 11/05/18 09:18 [id number] ) Document 11/05/18 11:00 [id number] (Rec: 11/05/18 11:41 [id number] ICU-L03) Document 11/05/18 12:26 [id number] (Rec: 11/05/18 13:18 [id number] ICU-L03) Eyes: No Scleral Icterus Ears/Nose/Mouth/Throat: NL Teeth, Lips, Gums, Clear Oropharnyx, Mucous Membranes Moist Neck: NL Appearance and Movements; NL JVP, Trachea Midline Cardiovascular: NL Sounds; No Murmurs; No JVD, RRR, No Edema Abdominal: NL Sounds; No Tenderness; No Distention, No Hepatosplenomegaly Extremities: No Edema, No Clubbing, Cyanosis Neurological: - - Drowsy, intermittently rousable. Word finding difficulty. Hyperreflexia in left leg. Weak throughout. - Assessment Assessment: 83 yo male resident of [facility] s/p fall with R frontal lobe hematoma and L subdural with poor prognosis hospice eligible - Plan Consult Plan (MU): Hospice Plan: Long discussion with and daughter. They would like hospice referral to the residence and if no bed available they would like hospice at home. They are not interested in SNF. Pt has living will and is DNR/DNI. has support but may need some extra aide help. Information/benefits of hospice given along with a brochure. She will get back to case management if they need hospital bed etc. Pt is eligible for hospice based on intracranial bleed, pt unresponsive. KPS 20% , PPS 10% - Time On Unit Date of Evaluation: 11/05/18 Hospice Consult Time in: 15:00 Hospice Consult Time Out: 16:30 Hospice Consult Time Total: 90 > 50% of Time Spend In Counseling or Coordinating Care: Yes
[2018-11-05 17:01] VITALS: BP 158/72
--- NOTE | 2018-11-05 20:54 | PN ---
Progress Note - Progress Note Date of Service: 11/04/18 Note: Patient was seen and examined initially in ICU on afternoon. Because of decline in mental status, CT of head was ordered by IM team, that revealed large Right frontal ICH. Patient was reexamined and was able to open eyes to pain, Not following commands. Some words, Sherin to pain, Mild Left hemiparesis. Discussed in extend with family including and daughter regarding CT findings and surgical intervention was offered. Given the patient's recent decline in Mental status, recent diagnosis of PSP and poor medical condition and according to patient's wishes, family elected to proceed with conservative management at this point. CTA was cancelled. Family understands implications of conservative management, including paralysis and and would like to consider palliative care. Chan Cramer MD
[2018-11-06] MEDS: Morphine ORAL CONCENTRATE* 5 MG/0.25 ML ORAL.SYRIN SL PRN ×3 (02:10→18:49)
--- NOTE | 2018-11-06 10:42 | PN ---
Subjective Date of Service: 11/06/18 Interval History: Patient sleeping on assessment does not arouse to voice. Responds to touch by withdrawing. Daughter at bedside and reports he has not woken or responded to her through the night. Daughter has not questions or needs at this time. Family History: Unchanged from Admission Social History: Unchanged from Admission Past Medical History: Unchanged from Admission Objective Active Medications: Acetaminophen (Tylenol Supp*) 650 mg [place] Q6H PRN PRN Reason: FEVER/PAIN Lorazepam (Ativan Inj*) 1 mg IV PUSH Q2H PRN PRN Reason: AGITATION Last Admin: 11/05/18 21:26 Dose: 1 mg Miscellaneous (Ativan Pyxis Layne) 1 ea N/A .ATIVAN IV LAYNE PRN PRN Reason: PYXIS LAYNE Morphine Sulfate (Morphine Oral Concentrate*) 5 mg SL Q2H PRN PRN Reason: PAIN Last Admin: 11/06/18 02:10 Dose: 5 mg Ondansetron HCl (Zofran Inj*) 4 mg IV Q4H PRN PRN Reason: NAUSEA Last Admin: 11/04/18 13:30 Dose: 4 mg Vital Signs - 8 hr 11/06/18 11/06/18 05:47 08:00 Respiratory 16 18 Rate Oxygen Devices in Use Now: None Appearance: Comfortable, NAD Eyes: No Scleral Icterus Ears/Nose/Mouth/Throat: Clear Oropharnyx, Mucous Membranes Moist Neck: NL Appearance and Movements; NL JVP Respiratory: Symmetrical Chest Expansion and Respiratory Effort, Clear to Auscultation Cardiovascular: NL Sounds; No Murmurs; No JVD, RRR, No Edema Abdominal: NL Sounds; No Tenderness; No Distention Lymphatic: No Cervical Adenopathy Extremities: No Clubbing, Cyanosis Skin: No Rash or Ulcers Neurological: - - Lethargic. Withdrawals from touch. Result Diagrams: 11/05/18 08:45 11/05/18 08:45 Additional Lab and Data: . Microbiology and Other Data: Microbiology 11/04/18 18:39 Nasal Screen MRSA (PCR) - Final Nasal Mrsa Not Detected Assess/Plan/Problems-Billing Assessment: Patient is an 83yo male with a PMH for PSP, GCA, and frequent falls who was at rehab and fell again with the development of 2 intracranial bleeds with his opting against surgery and for comfort care. - Patient Problems (1) Intraparenchymal hematoma of brain Comment: - Patient is currently on comfort care measures only and family is hoping for hospice bed at residence or hospice at home. Family opted against surgical intervention or other medical treatment. - Inital SDH and now 6cm intraparenchymal hemorrhage in Right frontal lobe. - Patient has signficantly decreased level of conciousness. (2) Progressive supranuclear palsy Comment: - Relatively quick neurological decline before previous hospitalization with frequent falls - Poor prognosis overall. (3) Comfort measures only status Comment: - Patient is currently on comfort care measures only and family is hoping for hospice bed at residence or hospice at home. Family opted against surgical intervention or other medical treatment. (4) DNR (do not resuscitate) Comment: - Comfort Measures only. Status and Disposition: Comfort Care inpatient, pending possible placement. Attending: Tatyana Garcia
[2018-11-06] MEDS: LORazepam INJ* 2 MG/ML 1 ML VIAL IV PUSH PRN ×2 (11:12→16:19)
[2018-11-07] MEDS: Morphine ORAL CONCENTRATE* 5 MG/0.25 ML ORAL.SYRIN SL PRN ×3 (06:17→20:44)
[2018-11-07] MEDS: LORazepam INJ* 2 MG/ML 1 ML VIAL IV PUSH PRN ×3 (06:25→20:43)
--- NOTE | 2018-11-07 12:56 | PN ---
Subjective Date of Service: 11/07/18 Interval History: Patient lying in bed with family members at bedside. Patient does not respond to voice, but did open eye spontaneously while this fha underwriter was present. Patient reports to touch by withdrawing. Family expressed concern as they thought he may have had an episode of "gio-marin" breathing last night. This is not noted today on assessment. They also have noticed a decrease in urine output in chakraborty. Family History: Unchanged from Admission Social History: Unchanged from Admission Past Medical History: Unchanged from Admission Objective Active Medications: Acetaminophen (Tylenol Supp*) 650 mg [place] Q6H PRN PRN Reason: FEVER/PAIN Lorazepam (Ativan Inj*) 1 mg IV PUSH Q2H PRN PRN Reason: AGITATION Last Admin: 11/07/18 06:25 Dose: 1 mg Miscellaneous (Ativan Pyxis Rodriguez) 1 ea N/A .ATIVAN IV RODRIGUEZ PRN PRN Reason: PYXIS RODRIGUEZ Morphine Sulfate (Morphine Oral Concentrate*) 5 mg SL Q2H PRN PRN Reason: PAIN Last Admin: 11/07/18 06:17 Dose: 5 mg Ondansetron HCl (Zofran Inj*) 4 mg IV Q4H PRN PRN Reason: NAUSEA Last Admin: 11/04/18 13:30 Dose: 4 mg Vital Signs - 8 hr 11/07/18 11/07/18 11/07/18 06:17 06:25 07:30 Respiratory 15 15 16 Rate 11/07/18 11/07/18 08:00 09:28 Respiratory 20 16 Rate Oxygen Devices in Use Now: None Appearance: Comfortable, NAD, No dyspnea Eyes: No Scleral Icterus Ears/Nose/Mouth/Throat: Clear Oropharnyx, Mucous Membranes Moist Neck: NL Appearance and Movements; NL JVP Respiratory: Symmetrical Chest Expansion and Respiratory Effort, Clear to Auscultation Cardiovascular: NL Sounds; No Murmurs; No JVD, RRR, No Edema Abdominal: NL Sounds; No Tenderness; No Distention Extremities: No Clubbing, Cyanosis Neurological: - - Does not respond to voice, but did open eyes spontaneously. Withdraws from touch. Result Diagrams: 11/05/18 08:45 11/05/18 08:45 Additional Lab and Data: . Microbiology and Other Data: Microbiology 11/04/18 18:39 Nasal Screen MRSA (PCR) - Final Nasal Mrsa Not Detected Assess/Plan/Problems-Billing Assessment: Patient is an 83yo male with a PMH for PSP, GCA, and frequent falls who was at rehab and fell again with the development of 2 intracranial bleeds with his opting against surgery and for comfort care. - Patient Problems (1) Intraparenchymal hematoma of brain Comment: - Addressed family's questions and concerns regarding their observations and changes in patient. - Family expressed concern about transport if he declines further. - Patient is currently on comfort care measures only and family is hoping for hospice bed at residence or hospice at home. Family opted against surgical intervention or other medical treatment. - Inital SDH and now 6cm intraparenchymal hemorrhage in Right frontal lobe. - Patient has signficantly decreased level of conciousness. (2) Progressive supranuclear palsy Comment: - Was previously residing at [facility] due to PSP - Relatively quick neurological decline before previous hospitalization with frequent falls - Poor prognosis overall. (3) Comfort measures only status Comment: - Patient is currently on comfort care measures only and family is hoping for hospice bed at residence or hospice at home. Family opted against surgical intervention or other medical treatment. (4) DNR (do not resuscitate) Comment: - Comfort Measures only. Status and Disposition: Comfort Care inpatient, pending possible placement. Attending: Kristen Riley
[2018-11-08] MEDS: Morphine ORAL CONCENTRATE* 5 MG/0.25 ML ORAL.SYRIN SL PRN ×8 (06:12→22:02)
[2018-11-08] MEDS: LORazepam INJ* 2 MG/ML 1 ML VIAL IV PUSH PRN ×6 (06:23→22:02)
--- NOTE | 2018-11-08 13:57 | PN ---
Subjective Date of Service: 11/08/18 Interval History: Patient seen, briefly examined. and family at bedside. Family History: Unchanged from Admission Social History: Unchanged from Admission Past Medical History: Unchanged from Admission Objective Active Medications: Acetaminophen (Tylenol Supp*) 650 mg [place] Q6H PRN PRN Reason: FEVER/PAIN Atropine Sulfate (Atropine 1% (Oral/Sl)*) 2 drop SL Q2H PRN PRN Reason: DISCOMFORT Lorazepam (Ativan Inj*) 1 mg IV PUSH Q2H PRN PRN Reason: AGITATION Last Admin: 11/08/18 13:45 Dose: 1 mg Miscellaneous (Ativan Pyxis Layne) 1 ea N/A .ATIVAN IV LAYNE PRN PRN Reason: PYXIS LAYNE Morphine Sulfate (Morphine Oral Concentrate*) 5 mg SL Q2H PRN PRN Reason: PAIN Last Admin: 11/08/18 12:26 Dose: 5 mg Ondansetron HCl (Zofran Inj*) 4 mg IV Q4H PRN PRN Reason: NAUSEA Last Admin: 11/04/18 13:30 Dose: 4 mg Vital Signs - 8 hr 11/08/18 11/08/18 11/08/18 06:12 06:23 07:39 Respiratory 22 22 20 Rate 11/08/18 11/08/18 11/08/18 07:45 08:15 08:23 Respiratory 19 22 22 Rate 11/08/18 11/08/18 11/08/18 09:59 10:25 11:00 Respiratory 22 24 22 Rate 11/08/18 11/08/18 11/08/18 11:44 12:26 13:45 Respiratory 22 22 22 Rate Oxygen Devices in Use Now: None Appearance: NAD, resting Ears/Nose/Mouth/Throat: - - dry oral mucosa Respiratory: - - labored respirations, RR 28 Skin: - - warm and dry, no mottling Result Diagrams: 11/05/18 08:45 11/05/18 08:45 Additional Lab and Data: . Microbiology and Other Data: Microbiology 11/04/18 18:39 Nasal Screen MRSA (PCR) - Final Nasal Mrsa Not Detected Assess/Plan/Problems-Billing Assessment: Patient is an 83yo male with a PMH for PSP, GCA, and frequent falls who was at rehab and fell again with the development of 2 intracranial bleeds with his opting against surgery and for comfort care. - Patient Problems (1) Comfort measures only status Code(s): Z51.5 - ENCOUNTER FOR PALLIATIVE CARE SNOMED Code(s): 00965878037642 Comment: - Bilateral frontal intracaranial hemorrhages 2/2 fall at long term - opted for palliative care/hospice, as bleeds are severe and patient also has underlying PSP - Pending bed at the hospice residence, however, patient is declining today and will likely be too unstable to move after today - Continue comfort care Status and Disposition: Comfort Care, inpatient.
[2018-11-08] MEDS: Ondansetron INJ* 2 MG/ML VIAL IV PRN (20:26)
[2018-11-08] MEDS: Atropine 1% (ORAL/SL)* 15 ML BTL SL PRN (22:27)
[2018-11-09] MEDS: LORazepam INJ* 2 MG/ML 1 ML VIAL IV PUSH PRN ×2 (00:35→03:13)
[2018-11-09] MEDS: Morphine ORAL CONCENTRATE* 5 MG/0.25 ML ORAL.SYRIN SL PRN ×2 (00:35→03:13)
[2018-11-09] MEDS: Atropine 1% (ORAL/SL)* 15 ML BTL SL PRN ×2 (00:55→03:27)
== END 2018-11-09 03:50 | disposition expired | DRG 86 ==
LOC: ED 09:18 → ICU 13:00 → OBSVTOIN 18:22 → MED 11-05 10:09
PROVIDERS: ADMIT Internal Medicine; ATTEND Internal Medicine
PROC: 0HQ0XZZ Repair Scalp Skin, External Approach (ICD-10-PCS; principal; 2018-11-04)
DX: S06.5X0A Traumatic subdural hemorrhage without loss of consciousness, initial encounter (principal); G23.1 Progressive supranuclear ophthalmoplegia [Steele-Richardson-Olszewski]; R47.01 Aphasia; G81.94 Hemiplegia, unspecified affecting left nondominant side; M35.3 Polymyalgia rheumatica; F32.9 Major depressive disorder, single episode, unspecified; F41.0 Panic disorder [episodic paroxysmal anxiety]; E11.41 Type 2 diabetes mellitus with diabetic mononeuropathy; E11.36 Type 2 diabetes mellitus with diabetic cataract; I25.10 Atherosclerotic heart disease of native coronary artery without angina pectoris; I10 Essential (primary) hypertension; E11.51 Type 2 diabetes mellitus with diabetic peripheral angiopathy without gangrene; G47.30 Sleep apnea, unspecified; M19.042 Primary osteoarthritis, left hand; M19.041 Primary osteoarthritis, right hand; R40.2362 Coma scale, best motor response, obeys commands, at arrival to emergency department; R40.2142 Coma scale, eyes open, spontaneous, at arrival to emergency department; R40.2252 Coma scale, best verbal response, oriented, at arrival to emergency department; S01.01XA Laceration without foreign body of scalp, initial encounter; W17.89XA Other fall from one level to another, initial encounter; E78.5 Hyperlipidemia, unspecified; M25.561 Pain in right knee; Z66 Do not resuscitate; G30.9 Alzheimer's disease, unspecified; F02.80 Dementia in other diseases classified elsewhere, unspecified severity, without behavioral disturbance, psychotic disturbance, mood disturbance, and anxiety; H91.90 Unspecified hearing loss, unspecified ear; Z51.5 Encounter for palliative care; Z97.4 Presence of external hearing-aid; Z88.1 Allergy status to other antibiotic agents; Z88.2 Allergy status to sulfonamides; Z85.038 Personal history of other malignant neoplasm of large intestine; Z88.8 Allergy status to other drugs, medicaments and biological substances; Z83.3 Family history of diabetes mellitus; Z87.891 Personal history of nicotine dependence; Y92.009 Unspecified place in unspecified non-institutional (private) residence as the place of occurrence of the external cause; Z91.81 History of falling; Z86.73 Personal history of transient ischemic attack (TIA), and cerebral infarction without residual deficits
CPT/HCPCS: 36415; 70450; 72070; 72100; 72125; 80048; 80053; 83605; 84484; 85025; 85610; 85730; 86850; 86900; 86901; 87641; 93005; 99285; A9270-GY; J2060; J2405; J3411; J3490